=== PATIENT | female | born 1995 | race Caucasian/White ===

== ENCOUNTER 2016-11-21 11:41 | Inpatient (IN) | payer BC ==
[2016-11-21 13:57] LABS: BASO # 0.1 K/uL (0.0-0.2); EOS % 0.4 % (0.0-4.0); HEMATOCRIT 42.8 % (34.0-47.0); LYMPH # 1.3 K/uL (1.0-4.3); LYMPH % 12.8 % (20.0-40.0); MEAN CELL VOLUME 90.6 fL (81.0-99.0); MEAN CORPUSCULAR HEMOGLOBIN 31.1 pg (27.0-31.0); MEAN CORPUSCULAR HGB CONC 34.3 g/dL (33.0-37.0); MEAN PLATELET VOLUME 7.8 fL (7.2-11.7); MONO # 0.6 K/uL (0.0-0.8); MONO % 6.1 % (0.0-10.0); RED CELL DISTRIBUTION WIDTH 12.9 % (11.5-14.5); WHITE BLOOD COUNT 9.9 K/uL (4.8-10.8)
[2016-11-21 14:07] LABS: CHLORIDE 103 mmol/L (98-107); SODIUM 139 mmol/L (132-148)
[2016-11-21 14:09] LABS: GFR AFRICAN-AMERICAN > 60
[2016-11-21 14:10] LABS: ALB/GLOB RATIO 1.5 (1.0-2.1); ALKALINE PHOSPHATASE 83 U/L (38-126); ALT/SGPT 17 U/L (9-52); AST/SGOT 32 U/L (14-36); BLOOD UREA NITROGEN 9 mg/dL (7-17); CALCIUM 8.8 mg/dl (8.6-10.4); CARBON DIOXIDE 24 mmol/L (22-30); GLUCOSE,RANDOM 95 mg/dL (65-105); TOTAL PROTEIN 6.9 g/dL (6.3-8.3)
[2016-11-21 14:18] LABS: RBC URINE < 1 /hpf (0-3); URINE BACTERIA RARE (<OCC); URINE BILIRUBIN NEGATIVE (NEGATIVE); URINE BLOOD NEGATIVE (NEGATIVE); URINE COLOR Yellow (YELLOW); URINE GLUCOSE (UA) NORMAL (Normal); URINE KETONE NEGATIVE (NEGATIVE); URINE LEUKOCYTE ESTERASE 2+ Leu/uL (Negative); URINE PROTEIN NEGATIVE (NEGATIVE); URINE UROBILINOGEN NORMAL mg/dL (0.2-1.0); WBC URINE 5 /hpf (0-5)
[2016-11-21 14:30] LABS: POTASSIUM 2.9 mmol/L (3.6-5.2)
--- NOTE | 2016-11-21 14:40 | C.PDOC ---
History Of Present Illness 21 y/o female presents to the ED for evaluation "near syncope" x1 day. Pt reports multiple episodes today. 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 Today patient felt episode coming on, told people around her to get pillow ready and to lay her down not to call ambulance but did. Pt with episode in ED which resolved prior to any medication. Pt denies being unconscious for episode but is very drowsy. Denies any injury or other complaints. Time Seen by Provider: 11/21/16 12:46 Chief Complaint (Nursing): Seizure History Per: Patient History/Exam Limitations: no limitations Length Of Seizures (Duration): Unknown Severity: Moderate Recent travel outside of the [place]: No Past Medical History Reviewed: Historical Data, Nursing Documentation, Vital Signs Vital Signs: Last Vital Signs Temp 98.8 F 11/21/16 11:49 Pulse 124 H 11/21/16 14:26 Resp 20 11/21/16 14:26 BP 133/81 11/21/16 14:26 Pulse Ox 97 11/21/16 14:43 Family History: States: Unknown Family Hx - Social History Hx Alcohol Use: Yes Hx Substance Use: No (unknown) - Immunization History Hx Tetanus Toxoid Vaccination: No (unknown) Hx Influenza Vaccination: No (unknown) Hx Pneumococcal Vaccination: No (unknown) Review Of Systems Constitutional: Negative for: Fever, Chills Cardiovascular: Negative for: Chest Pain Respiratory: Negative for: Shortness of Breath Gastrointestinal: Negative for: Abdominal Pain Neurological: Positive for: Other (near syncope). Negative for: Headache Physical Exam - Physical Exam Additional Physical Exam Comments: Constitutional: No acute distress. Head: Normocephalic. Atraumatic. Eyes: PERRL. ENT: Moist mucous membranes. Neck: Supple. Cardiovascular: Tachycardic. Radial pulse 2+ bilaterally. Chest: No tenderness. Respiratory: Clear to auscultation bilaterally. GI: Soft. Nontender. Nondistended. Back: No CVA tenderness. Musculoskeletal: No tenderness or swelling of extremities. Skin: No rash. Neurologic: Alert, no focal deficit ED Course And Treatment - Laboratory Results Result Diagrams: 11/21/16 13:53 11/21/16 13:53 O2 Sat by Pulse Oximetry: 97 (room air) Pulse Ox Interpretation: Normal Medical Decision Making Medical Decision Making: Plan: * labs * CXR * UA Patient persistently tachycardic with 2 episodes of convulsions in ER, both resolving in less than 1 minute without medication and with no postictal period. CXR no acute disease. Sinus tachycardia. Found to be hypokalemic to 2.9. Dr. Walker accepts patient for consult. Dr. Dobbs accepts patient for observation and recommends neurology consultation with Dr. Walter. Disposition - Disposition Disposition: HOSPITALIZED Disposition Time: 14:37 Condition: FAIR - Clinical Impression Clinical Impression: Tachycardia, Hypokalemia, Near syncope - Scribe Statement The provider has reviewed the documentation as recorded by the Alex Rosa Provider Attestation: All medical record entries made by the Alex were at my direction and personally dictated by me. I have reviewed the chart and agree that the record accurately reflects my personal performance of the history, physical exam, medical decision making, and the department course for this patient. I have also personally directed, reviewed, and agree with the discharge instructions and disposition.
--- NOTE | 2016-11-21 15:02 | RAD ---
HISTORY: near syncope COMPARISON: 04/26/2016 FINDINGS: LUNGS: No active pulmonary disease. Bibasilar breast and nipple shadows. PLEURA: No significant pleural effusion identified, no pneumothorax apparent. CARDIOVASCULAR: Normal. OSSEOUS STRUCTURES: No significant abnormalities. VISUALIZED UPPER ABDOMEN: Normal. OTHER FINDINGS: None. IMPRESSION: No active disease.
[2016-11-21] MEDS ORDERED: Sodium Chloride 0.9% 1,000 ML IV STA (15:10)
[2016-11-21] MEDS ORDERED: Sodium Chloride 0.9% 1,000 ML ONE (15:17)
--- NOTE | 2016-11-21 22:09 | CP.PCM.PN ---
Subjective - Date & Time of Evaluation Date of Evaluation: 11/21/16 Time of Evaluation: 20:45 - Subjective Subjective: H&P dictated #[id number] Objective - Vital Signs/Intake and Output Vital Signs (last 24 hours): Temp Pulse Resp BP Pulse Ox 98.0 F 120 H 18 111/72 98 11/21/16 18:40 11/21/16 19:42 11/21/16 18:40 11/21/16 18:40 11/21/16 18:40 - Medications Medications: Current Medications Dextrose/Sodium Chloride (Dextrose 5%/0.9% Ns 1000 Ml) 1,000 mls @ 100 mls/hr IV .Q10H ALEJANDRO Pneumococcal Polyvalent Vaccine (Pneumovax 23 Vaccine) 0.5 ml IM .ONCE ONE Stop: 11/23/16 10:01
--- NOTE | 2016-11-22 05:32 | CP.PCM.CON ---
History of Present Illness - History of Present Illness History of Present Illness: pt known to me pots syncopal episode hydrate watch potasium Past Patient History - Infectious Disease Hx of Infectious Diseases: C.diff - Tetanus Immunizations Tetanus Immunization: Unknown - Past Medical History & Family History Past Medical History?: Yes - Past Social History Smoking Status: Never Smoked - CARDIAC Hx Cardiac Disorders: No - PULMONARY Hx Respiratory Disorders: No - NEUROLOGICAL Hx Neurological Disorder: Yes Other/Comment: pseudo seizures - HEENT Hx HEENT Problems: No - RENAL Hx Chronic Kidney Disease: No - ENDOCRINE/METABOLIC Hx Endocrine Disorders: No - HEMATOLOGICAL/ONCOLOGICAL Hx Blood Disorders: No - INTEGUMENTARY Hx Dermatological Problems: No - MUSCULOSKELETAL/RHEUMATOLOGICAL Hx Musculoskeletal Disorders: No Hx Falls: No - GASTROINTESTINAL Hx Gastrointestinal Disorders: No - GENITOURINARY/GYNECOLOGICAL Hx Genitourinary Disorders: No - PSYCHIATRIC Hx Substance Use: No - SURGICAL HISTORY Hx Surgeries: No - ANESTHESIA Hx Anesthesia: No Meds Allergies/Adverse Reactions: Allergies Allergy/AdvReac Type Severity Reaction Status Date / Time bananas Allergy Uncoded 11/21/16 11:55 - Medications Medications: Current Medications Dextrose/Sodium Chloride (Dextrose 5%/0.9% Ns 1000 Ml) 1,000 mls @ 100 mls/hr IV .Q10H ALEJANDRO Pneumococcal Polyvalent Vaccine (Pneumovax 23 Vaccine) 0.5 ml IM .ONCE ONE Stop: 11/23/16 10:01 Results - Vital Signs Recent Vital Signs: Last Vital Signs Temp 98.3 F 11/21/16 23:15 Pulse 97 H 11/21/16 23:15 Resp 20 11/21/16 23:15 BP 108/69 11/21/16 23:15 Pulse Ox 98 11/21/16 23:15 - Labs Result Diagrams: 11/21/16 13:53 11/21/16 13:53 Labs: Laboratory Results - last 24 hr 11/21/16 11/22/16 20:16 03:53 Troponin I < 0.0120 Urine Opiates Screen Negative Urine Methadone Screen Negative Ur Barbiturates Screen Negative Ur Phencyclidine Scrn Negative Ur Amphetamines Screen Negative U Benzodiazepines Scrn Negative U Oth Cocaine Metabols Negative U Cannabinoids Screen Negative
[2016-11-22 08:11] LABS: BASO % 0.3 % (0.0-2.0); EOS # 0.1 K/uL (0.0-0.7); EOS % 1.6 % (0.0-4.0); LYMPH # 1.4 K/uL (1.0-4.3); LYMPH % 21.1 % (20.0-40.0); MEAN CELL VOLUME 90.7 fL (81.0-99.0); MEAN CORPUSCULAR HGB CONC 34.2 g/dL (33.0-37.0); MEAN PLATELET VOLUME 7.6 fL (7.2-11.7); MONO # 0.5 K/uL (0.0-0.8); MONO % 7.2 % (0.0-10.0); NRBC % 0.1 % (0.0-2.0); RED CELL DISTRIBUTION WIDTH 12.7 % (11.5-14.5); WHITE BLOOD COUNT 6.8 K/uL (4.8-10.8)
[2016-11-22 08:13] LABS: CHLORIDE 104 mmol/L (98-107); POTASSIUM 3.6 mmol/L (3.6-5.2); SODIUM 138 mmol/L (132-148)
[2016-11-22 08:15] LABS: ALB/GLOB RATIO 1.6 (1.0-2.1); ALKALINE PHOSPHATASE 82 U/L (38-126); AST/SGOT 27 U/L (14-36); BILIRUBIN,TOTAL 1.7 mg/dL (0.2-1.3); BLOOD UREA NITROGEN 10 mg/dL (7-17); CARBON DIOXIDE 23 mmol/L (22-30); CHOLESTEROL 153 mg/dL (0-199); GFR AFRICAN-AMERICAN > 60; GLUCOSE,RANDOM 93 mg/dL (65-105); TOTAL PROTEIN 7.3 g/dL (6.3-8.3)
[2016-11-22 08:16] LABS: ALT/SGPT 17 U/L (9-52); CALCIUM 9.7 mg/dl (8.6-10.4); MAGNESIUM 2.1 mg/dL (1.6-2.3)
[2016-11-22 08:47] LABS: CORTISOL AM 27.5 ug/dL (4.46-22.7)
[2016-11-22 08:48] LABS: THYROID STIMULATING HORMONE 1.29 mIU/L (0.46-4.68)
--- NOTE | 2016-11-22 08:52 | CP.PCM.PN ---
Subjective - Date & Time of Evaluation Date of Evaluation: 11/22/16 Time of Evaluation: 08:48 - Subjective Subjective: House Doctor Note: Rapid response called at 8:40 am for seizure like activity. Patient with history of postural orthostatic tachycardic syndrome as per Dr. Walker. Seizure like activity was witnessed by nursing and lasted for about 1 minute without intervention. No medications were given. She had seizures in April and work up was negative at the time. Vital signs 137/85, Temp 97.3, HR 117, O2 98% on RS. Glucose check was 93. During rapid response patient had 2 additional seizures witnessed by me and nursing. The first seizure lasted about 15-20 seconds. Patient was witnessed to posture with eyes rolling back. She was noted to be diaphoretic and warm. Very short post ictal state. Prolactin level at 4 am was [address] Neu[address] Walter is following patient who was made aware and ordered loading dose of Keppra with 500 mg PO BID after that. Patient ordered for stat Prolactin for comparison. Patient for MRI and EEG today as per neuro. Dr. Burkett contacted and aware. Physical Exam: GEN: NAD after seizure, AAO X3 Pulm: CTABL. Cardio: Tachy, +S1, +S2. Abdomen: soft. Extremities: no edema or rashes. Objective - Vital Signs/Intake and Output Vital Signs (last 24 hours): Temp Pulse Resp BP Pulse Ox 98.3 F 101 H 20 108/69 98 11/21/16 23:15 11/21/16 23:15 11/21/16 23:15 11/21/16 23:15 11/21/16 23:15 - Medications Medications: Current Medications Dextrose/Sodium Chloride (Dextrose 5%/0.9% Ns 1000 Ml) 1,000 mls @ 100 mls/hr IV .Q10H ALEJANDRO Pneumococcal Polyvalent Vaccine (Pneumovax 23 Vaccine) 0.5 ml IM .ONCE ONE Stop: 11/23/16 10:01 - Labs Labs: 11/22/16 07:53 11/22/16 07:53
--- NOTE | 2016-11-22 09:32 | HP ---
CHIEF COMPLAINT: Had multiple episodes of syncope, near syncope and associated with jerky movements of the upper extremities as witnessed by the ED physician. HISTORY OF PRESENT ILLNESS: The patient is a 21-year-old female with a past medical history of POTS (postural tachycardia syndrome) diagnosed about 7-8 months ago who has been following up with Dr. Terence barrientos as litigation counsel and her primary is from [place]/Dr. Kaplan. Came in to the ED, brought by [facility] after the patient had multiple episodes of passing out with jerky movements of the upper extremiti es. All the history obtained from the patient and patient's friends who were at bedside. As per the m, she was in her usual state of health until yesterday. She was under stress, could not sleep last night, tired. She slept for only 2 hours. While she was in school this morning sitting, she felt li ke tired, sleepy. She was trying to rest her head on the desk. She passed out and also had jerky mo vements of the upper extremities. Had multiple episodes in the school, and patient was brought into the Emergency Room. In the Emergency Room also, as per ED physician, patient had 2 witnessed syncopa l episodes associated with jerky movements. The patient claims that her symptoms start with palpitat ion, lightheadedness and suddenly will pass out followed by the jerky movements of the upper extremit ies. Since this morning, had multiple episodes. There was no postictal period. All these episodes lasted for 30 seconds to a minute followed by complete recovery. As per her, some of the episodes mienr ppened today she was aware of what was happening. Similar episodes happened in April, but those e pisodes happened followed by diarrhea and she was standing for a prolonged period of time in one posi tion at which point she started having these palpitations followed by syncope and jerky movements. A t that time, the patient was diagnosed with possible postural tachycardia syndrome and patient was gi guanako a medication, which she could not recall, for a month. She did not have any episodes from 6 till today. The patient is not taking any medications for any of her symptoms, but patient has bee n regularly following up with the litigation counsel. When I examined, she denies any headache, dizziness. Denies any chest pain, shortness of breath or w heezing. Denies any nausea, vomiting, abdominal pain, diarrhea or constipation. Denies any urinary complaints. Denies any leg pains or leg cramps. Denies any other neurologic symptoms. PAST MEDICAL HISTORY: As described, postural tachycardia syndrome. PAST SURGICAL HISTORY: Denies any past surgical history. FAMILY HISTORY: Rheumatoid arthritis in father. Hypertension and diabetes in grandparents. Mother is healthy. She has 1 brother and 1 sister who are healthy. PERSONAL HISTORY: She is single, living with her aunt and uncle. SOCIAL HISTORY: She denies smoking. Drinks alcohol socially; last drink was yesterday - had 1 can o f beer. ALLERGIES: SHE IS ALLERGIC TO BANANA, DEVELOPS ITCHY THROAT. MEDICATIONS: Takes Claritin for seasonal allergies. REVIEW OF SYSTEMS: As described in history of present illness. PHYSICAL EXAMINATION: GENERAL: Young female lying in bed, in no acute distress. VITAL SIGNS: Blood pressure 111/72, pulse 85, respirations 20, temperature 98 degrees Fahrenheit, pu lse 106, O2 sat is 98% on room air. HEENT: Pupils equal, round, reacting to light and accommodation. Extraocular muscles intact. No ic terus, no pallor. No oral thrush. No pharyngeal congestion. NECK: Supple. No JVD, no thyromegaly. CHEST: Moving equally bilaterally on respiration. LUNGS: Bilateral vesicular breath sounds. No wheezing, no rhonchi. CARDIOVASCULAR: S1, S2 present, regular. ABDOMEN: Soft, nontender. Bowel sounds present. No guarding, no rigidity, no rebound tenderness no michael. CENTRAL NERVOUS SYSTEM: Alert, awake, oriented x 3. No focal deficits noted. EXTREMITIES: No edema. Palpable peripheral pulses. LABORATORY DATA: Labs done from the Emergency Room: WBC 9.9, hemoglobin 14.7, hematocrit 42.8, vincent telets 396, sodium 139, potassium 2.9, chloride 103, bicarb 24, BUN 9, creatinine 0.7, glucose 95, ca lcium 8.8. Total bilirubin 1.0, AST 32, ALT 17, alkaline phosphatase 83. Total CPK is 58. Cardiac enzymes x 2 negative. Total protein 6.9, albumin 4.1. UA: Specific gravity 1.010, pH 7.0, leukocyt e esterase 2+, WBC 5, otherwise negative. Chest x-ray negative for any infiltrate. EKG is consisten t with sinus tachycardia at 128 beats per minute. MRI of the brain done in April shows no evidenc e of acute pathology or suspicious lesion in the brain. EEG: No epileptiform focus. Echocardiogram shows ejection fraction of 65-70%. No other abnormality noted. CT of the chest: Unremarkable. CT pulmonary angiogram: No pulmonary embolus. CT head: No acute intracranial hemorrhage. ASSESSMENT AND PLAN: Young female with recently diagnosed postural tachycardia syndrome. As per her , not on any medication. Believed to be triggered by dehydration and diarrhea and in April admitt ed with multiple episodes of palpitations followed by the syncope with jerky movements of the upper e xtremities. In the Emergency Department, the patient had further witnessed episodes. All the labora tor data are negative, and patient is being admitted for further management. 1. Multiple syncopal episodes, initiated by palpitation followed by syncope and jerky movements of t he upper extremities, probably secondary to stress and using ____. Rule out other cardiac etiologies . Rule out neurologic causes. 2. Hypokalemia. PLAN: The patient is being admitted to telemetry. Will do serial cardiac enzymes, serial EKGs. Alexi l repeat echocardiogram. Will obtain cardiology evaluation and neurologic evaluation. The patient h ad extensive workup done during the last admission; all the workup was negative. Will replace potass ium, check magnesium level. I will give IV fluids. I will follow up with cardiology regarding furth er and further care. I will do seizure precautions, fall prevention. Will add further recommendatio n as her clinical course progresses. Jewel Dobbs MD cc: [id number] TT: 11/22/2016 09:32:00 dawit
[2016-11-22] MEDS: Dextrose 5%/0.9% NS 1,000 ML IV SCH ×3 (09:57→23:01)
[2016-11-22] MEDS ORDERED: levETIRAcetam 1,000 MG in Sodium Chloride 0.9% 100 ML IVPB ONE (10:00)
--- NOTE | 2016-11-22 11:20 | CP.PCM.PN ---
Subjective - Date & Time of Evaluation Date of Evaluation: 11/22/16 Time of Evaluation: 10:30 - Subjective Subjective: Progress note dictated #[id number] Objective - Vital Signs/Intake and Output Vital Signs (last 24 hours): Temp Pulse Resp BP Pulse Ox 98.4 F 117 H 20 111/71 95 11/22/16 07:00 11/22/16 07:00 11/22/16 07:00 11/22/16 07:00 11/22/16 07:00 - Medications Medications: Current Medications Dextrose/Sodium Chloride (Dextrose 5%/0.9% Ns 1000 Ml) 1,000 mls @ 100 mls/hr IV .Q10H ALEJANDRO Last Admin: 11/22/16 09:57 Dose: 100 mls/hr Levetiracetam (Keppra) 500 mg PO BID ALEJANDRO Pneumococcal Polyvalent Vaccine (Pneumovax 23 Vaccine) 0.5 ml IM .ONCE ONE Stop: 11/23/16 10:01 - Labs Labs: 11/22/16 07:53 11/22/16 07:53
--- NOTE | 2016-11-22 11:30 | CP.PCM.PN ---
Subjective - Date & Time of Evaluation Date of Evaluation: 11/22/16 Time of Evaluation: 11:24 - Subjective Subjective: Progress Note for Dr. Walker Pt seen and examined at bedside. Overnight, pt with no acute events. This morning rapid response was called for pt due to seizure activity. Pt had seizure for 30 seconds and it spontaneously resolved. All vitals were stable at this time. Several minutes later, pt had another seizure lasting 2 minutes that resolved spontaneously. Pt eventually stabilized several minutes later. EKG showed sinus tachycardia. Objective - Vital Signs/Intake and Output Vital Signs (last 24 hours): Temp Pulse Resp BP Pulse Ox 98.4 F 117 H 20 111/71 95 11/22/16 07:00 11/22/16 07:00 11/22/16 07:00 11/22/16 07:00 11/22/16 07:00 - Medications Medications: Current Medications Dextrose/Sodium Chloride (Dextrose 5%/0.9% Ns 1000 Ml) 1,000 mls @ 100 mls/hr IV .Q10H ALEJANDRO Last Admin: 11/22/16 09:57 Dose: 100 mls/hr Levetiracetam (Keppra) 500 mg PO BID [facility] Pneumococcal Polyvalent Vaccine (Pneumovax 23 Vaccine) 0.5 ml IM .ONCE ONE Stop: 11/23/16 10:01 - Labs Labs: 11/22/16 07:53 11/22/16 07:53 - Constitutional Appears: Well, No Acute Distress - Head Exam Head Exam: ATRAUMATIC, NORMAL INSPECTION, NORMOCEPHALIC - ENT Exam ENT Exam: Mucous Membranes Moist - Respiratory Exam Respiratory Exam: Clear to Ausculation Bilateral, NORMAL BREATHING PATTERN. absent: Rales, Rhonchi - Cardiovascular Exam Cardiovascular Exam: Tachycardia, +S1, +S2 - GI/Abdominal Exam GI & Abdominal Exam: Soft, Normal Bowel Sounds. absent: Tenderness - Extremities Exam Extremities Exam: Normal Inspection. absent: Pedal Edema - Neurological Exam Neurological Exam: Alert, Awake, Oriented x3 - Skin Skin Exam: Intact, Normal Color, Warm Assessment and Plan (1) POTS (postural orthostatic tachycardia syndrome) Assessment & Plan: Pt will continue electrolyte supplementation as needed Monitor heart rate Status: Acute (2) Seizure Assessment & Plan: Continue management as per neuro Brain MRI and EEG pending Status: Acute
--- NOTE | 2016-11-22 13:58 | CON ---
DATE: 11/22/2016 ATTENDING PHYSICIAN: Jewel Dobbs MD The patient is in room #663, bed A. REASON FOR CONSULTATION: Recurrent syncopal attack. CHIEF COMPLAINT: The patient was brought into [facility] with a second episode of palpitation w ith a syncopal episode. From neurological point of view, I was called in to evaluate her for further management. HISTORY OF PRESENT ILLNESS: The patient is a 21-year-old right-handed thinly built female, been presenting with POTS syndrome, been diagnosed in April last year, been worked up extensively and she was sent home with no medication. She had a second episode that happened yesterday which wa s witnessed by her friend. As per patient, she described that out of the blue, she started to have r apid pulsating heartbeat, then she felt weird sensation. One episode happened while she was standing , another episode while was sitting. Following this, friend noticed that her eyes rolled backwards a nd tonic posturing of both arm and legs, which lasted for about a minute and then it took another min richar for her to regain back to the way she was before. No history of travel. No history of head trau ma. No history of any other involuntary movements. The patient's history is also normal as pe r patient and ____ also normal as she was told by her mother. Another episode had happened briefly this morning around 6:00 which disappeared the nurse came in to see her. PAST MEDICAL HISTORY: As stated above. PERSONAL HISTORY: Denies smoking or alcohol use. ALLERGIES: BANANA. SOCIAL HISTORY: ____ alcohol use. MEDICATION: IV fluids. PHYSICAL EXAMINATION: VITAL SIGNS: Blood pressure 108/69, mean arterial pressure of 82, respiratory rate 16, temperature 9 8.3. Pulse rate 124 on lying down, on sitting up. When she stands up, pulse rate went up 10 points higher, 133. The patient was asymptomatic at this point. NECK: Supple. No carotid bruit. HEART: Sounds tachycardia. EXTREMITIES: No edema in legs. NEUROLOGIC EXAMINATION: MENTAL STATUS EXAMINATION: She is awake, alert, oriented to person, place, and time. Speech is claudia r. Naming, repetition, fluency, comprehension all within normal. CRANIAL NERVE EXAMINATION: Visual field intact. Pupils react to light. Extraocular movement normal . No nystagmus, no facial sensory deficit, no facial asymmetry. Hearing is normal. Tongue is midli ne. Good gag. MOTOR EXAMINATION: Outstretched hand with eyes closed, no drift noted. Power is symmetric on either side. DEEP TENDON REFLEXES: Right side is somewhat hyperreflexia 3+ to compare with the left side 2+. Drake ntars are equivocal response on the right side, left side was downgoing. SENSORY EXAMINATION: Grossly intact. COORDINATION: [id number] test is intact. GAIT: Normal. CONCLUSION: Upon reviewing her history and neurological examination, the patient has been presenting with history of paroxysmal tachycardia with postural orthostatic tachycardia syndrome. The neurolog ical examination shows resting tachycardia with right-sided hyperreflexia suggestive of dominant arsen spheric dysfunction. This could be a remote ischemic process, a developmental anomaly or space-occupying lesion. WORKUP: EKG, sinus tachycardia. CBC: ____ 9.9, hemoglobin 14.7, hematocrit 42.8, platelet 396. Sod ium 139, potassium 2.9 before correcting the potassium. BUN 9, creatinine 0.7, GFR more than 60, olu cium 8.8. Urine tox screen is negative. RECOMMENDATION: 1. MRI of the brain with and without gadolinium to rule out dominant hemispheric space-occupying pro cess versus focal atrophy at mesial temporal lobe around the insular cortex. 2. Thyroid function tests. 3. Continue to monitor telemetry. 4. Electroencephalogram to be done. Continue the present management and follow up with supervisor lump room's recommendation. Following discharge, definitely patient does need ambulatory video electroencephalogram to study the extent of electrographic activities during her awake as well as asleep. The patient will be followed while she is in the hospital. Jose Walter MD cc: [id number] TT: 11/22/2016 13:57:23 Confirmation # [id number] Dictation # [id number]
[2016-11-22] MEDS ORDERED: Gadodiamide 287 MG/ML VIAL (15ML) IV ONE (15:21)
--- NOTE | 2016-11-22 16:30 | PN ---
DATE: 11/22/2016 The patient is seen and examined at bedside. Events from this a.m. noted. The patient had multiple seizure-like activity at bedside, which was witnessed by the nurses and the resident. The patient wa s given Ativan. When I examined, she denies any headache, dizziness. Denies any tiredness or fatigu e or postictal state. Denies any chest pain, shortness of breath or wheezing. Denies any other comp laints. PHYSICAL EXAMINATION: GENERAL: Young female lying in bed in no acute distress. VITAL SIGNS: Blood pressure 137/85, pulse 117, respirations 20, temperature 97.3 degrees Fahrenheit, O2 sats 98% on room air. HEENT: Pupils equal, round, reacting to light and accommodation. Extraocular muscles intact. No ic terus, no pallor. No oral thrush. No pharyngeal congestion. No nasal congestion. NECK: Supple. No JVD. LUNGS: Bilateral vesicular breath sounds. No wheezing, no rhonchi. CARDIOVASCULAR: S1, S2 present, regular. ABDOMEN: Soft, nontender. Bowel sounds present. No guarding, no rigidity, no rebound tenderness no michael. CENTRAL NERVOUS SYSTEM: Alert, awake, oriented x 3. No focal deficits noted. EXTREMITIES: No edema. Palpable peripheral pulses. LABORATORY DATA: Labs done from this morning, WBC 6.8, hemoglobin 14.7, hematocrit 43, platelets 376 . Sodium 138, potassium 3.6, chloride 104, bicarb 23, BUN 10, creatinine 0.6, glucose 92, calcium 9. 7, magnesium 2.1, total bilirubin 1.7, AST 27, ALT 17, alkaline phosphatase 82. Cardiac enzymes x 2 negative. HDL 81. TSH 1.29. Prolactin is 50.5, cortisol AM 27.5, triglycerides 111, cholesterol 15 3. UA negative. Urine drug screen negative. MRI pending results. ASSESSMENT AND PLAN: A young female with recently diagnosed postural orthostatic tachycardia syndrom e, readmitted for multiple episodes of seizure-like activity and hypokalemia. The patient is started on Keppra after having multiple episodes this morning. We will monitor patient closely for seizure precaution and fall prevention. We will follow up with brain MRI results. Potassium was corrected w ith intravenous supplementation. We will follow up with cardiology. We will add further recommendat ion as her clinical course progresses. Jewel Dobbs MD cc: [id number] TT: 11/22/2016 16:29:38 Confirmation # [id number] Dictation # [id number] sn
--- NOTE | 2016-11-22 17:16 | MRI ---
PROCEDURE: MRI BRAIN WITH AND WITHOUT CONTRAST HISTORY: focal atrophy at mesial temp lobe COMPARISON: Comparison is made to the previous study dated 04/27/2016 TECHNIQUE: Multiplanar, multisequence MR images of the brain were obtained with and without intravenous contrast enhancement. FINDINGS: HEMORRHAGE: None DWI: No evidence of an acute or early subacute infarction. BRAIN PARENCHYMA: There is slight asymmetry in the mesial temporal lobe with the right appears larger than the left. No mass,mass effect or edema. No atrophy or chronic microvascular ischemic changes. ENHANCEMENT: No abnormal intracranial enhancement. VENTRICLES: Unremarkable. No hydrocephalus. CRANIUM: Unremarkable. ORBITS: Grossly unremarkable. PARANASAL SINUSES/MASTOIDS: Clear VASCULAR SYSTEM: Skull base flow voids intact. OTHER FINDINGS: None . IMPRESSION: Slight asymmetry in the size of the mesial temporal lobe with possible mild atrophy in the left side. No evidence of acute pathology in the brain. No evidence of mass lesion or abnormal enhancement in the brain parenchyma. Mildly enlarged pituitary gland is again noted.
[2016-11-23] MEDS: Dextrose 5%/0.9% NS 1,000 ML IV SCH (02:52)
--- NOTE | 2016-11-23 08:24 | PN ---
DATE: 11/23/2016 NEUROLOGICAL PROBLEM: Possible seizures. PHYSICAL EXAMINATION: VITAL SIGNS: Blood pressure 110/73, mean arterial pressure 80, respiratory rate 16, temperature afeb rile. Her pulse rate and heart rate being regular ever since medication was started yesterday and tena florez has been seizure free. The patient did have 3-4 episodes of loss of consciousness with eyes rolling and tonic posturing of t he arms and legs, which was not associated with bitten tongue and bowel or bladder incontinence. The examination was mildly asymmetry as per previous exam today as well. The patient feels tired. Besides that, her heart rate was not racing like she had it before. 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 No other pathologies noted. This above structural finding could be the cause for her seizures. RECOMMENDATIONS: The patient is stable with current dose of Keppra 500 mg twice a day. If medically stable, the patient can be discharged to home and should have a followup visit with me to have ambul atory video electroencephalogram to further localize any electrographic seizures. The current electr oencephalogram will be reviewed by me today. The patient's condition as well as DMV driving restrictions in [place] have been discussed with gabi obando. The patient should not be driving until her seizure has been fixed. She agreed and she should fo llow up with me and concur with my recommendation and follow up with DMV recommendation in [place] . . Jose Walter MD cc: [id number] TT: 11/23/2016 08:24:00 Confirmation # [id number] Dictation # [id number] tn
--- NOTE | 2016-11-23 09:33 | CP.PCM.PN ---
Subjective - Date & Time of Evaluation Date of Evaluation: 11/23/16 Time of Evaluation: 09:30 - Subjective Subjective: Progress Note for Dr. Walker Pt seen and examined at bedside. Pt states she feels well today after CABLE INSTALLATION TECHNICIAN called yesterday. No acute overnight events. Pt states she has had no episodes of seizure like activity. Denies CP, SOB, N/V/D, dizziness, fever, chills. Objective - Vital Signs/Intake and Output Vital Signs (last 24 hours): Temp Pulse Resp BP Pulse Ox 97.6 F 93 H 20 99/67 L 97 11/23/16 07:27 11/23/16 07:27 11/23/16 07:27 11/23/16 07:27 11/23/16 07:27 Intake and Output: 11/23/16 11/23/16 06:59 18:59 Intake Total 800 Output Total 400 Balance 400 - Medications Medications: Current Medications Levetiracetam (Keppra) 500 mg PO BID ALEJANDRO Last Admin: 11/22/16 17:11 Dose: 500 mg Pneumococcal Polyvalent Vaccine (Pneumovax 23 Vaccine) 0.5 ml IM .ONCE ONE Stop: 11/23/16 10:01 - Labs Labs: 11/22/16 07:53 11/22/16 07:53 - Constitutional Appears: Well, No Acute Distress - Head Exam Head Exam: ATRAUMATIC, NORMAL INSPECTION, NORMOCEPHALIC - ENT Exam ENT Exam: Mucous Membranes Moist - Respiratory Exam Respiratory Exam: Clear to Ausculation Bilateral, NORMAL BREATHING PATTERN. absent: Rales - Cardiovascular Exam Cardiovascular Exam: RRR, +S1, +S2 - GI/Abdominal Exam GI & Abdominal Exam: Soft, Normal Bowel Sounds. absent: Tenderness - Extremities Exam Extremities Exam: Normal Inspection. absent: Pedal Edema - Neurological Exam Neurological Exam: Alert, Awake, Oriented x3 - Skin Skin Exam: Intact, Normal Color, Warm Assessment and Plan (1) POTS (postural orthostatic tachycardia syndrome) Assessment & Plan: Continue oral fluid intake Replenish electrolytes as needed Status: Acute (2) Seizure Assessment & Plan: Pt started on Keppra Continue management as per neurology Status: Acute
[2016-11-23] MEDS ORDERED: Pneumococcal 23-Valent Vaccine IM ONE (10:00)
--- NOTE | 2016-11-23 12:06 | CP.PCM.PN ---
Subjective - Date & Time of Evaluation Date of Evaluation: 11/23/16 Time of Evaluation: 11:45 - Subjective Subjective: Progress note dictated #[id number] Objective - Vital Signs/Intake and Output Vital Signs (last 24 hours): Temp Pulse Resp BP Pulse Ox 97.6 F 93 H 20 99/67 L 97 11/23/16 07:27 11/23/16 07:27 11/23/16 07:27 11/23/16 07:27 11/23/16 07:27 Intake and Output: 11/23/16 11/23/16 06:59 18:59 Intake Total 800 Output Total 400 Balance 400 - Medications Medications: Current Medications Levetiracetam (Keppra) 500 mg PO BID ALEJANDRO Last Admin: 11/23/16 09:34 Dose: 500 mg - Labs Labs: 11/22/16 07:53 11/22/16 07:53
--- NOTE | 2016-11-23 13:29 | CP.PCM.PN ---
Subjective - Date & Time of Evaluation Date of Evaluation: 11/23/16 Time of Evaluation: 13:24 - Subjective Subjective: BREAKER TENDER called at 13:20 for witnessed seizure by nursing staff lasting approximately 1 minute. As per nursing staff, when seizure began, the patient's pulse was in the 140s. Upon entering the room, seizure had resolved and patient noted that she felt the seizure coming on, but was unaware during the episode. Yesterday, loading dose of Keppra was initiated. Patient is being seen by both cardio and neuro. After episode, the blood pressure was 119/71, P 104, T 98,O2 sat 99%, R 14, glucose 127. Ativan was not required, patient is resting comfortably. Nursing staff contacted PMD Dr. Dobbs, who is aware. Objective - Vital Signs/Intake and Output Vital Signs (last 24 hours): Temp Pulse Resp BP Pulse Ox 97.6 F 93 H 20 99/67 L 97 11/23/16 07:27 11/23/16 07:27 11/23/16 07:27 11/23/16 07:27 11/23/16 07:27 Intake and Output: 11/23/16 11/23/16 06:59 18:59 Intake Total 800 Output Total 400 Balance 400 - Medications Medications: Current Medications Levetiracetam (Keppra) 500 mg PO BID ALEJANDRO Last Admin: 11/23/16 09:34 Dose: 500 mg - Labs Labs: 11/22/16 07:53 11/22/16 07:53 - Constitutional Appears: No Acute Distress - Head Exam Head Exam: ATRAUMATIC, NORMAL INSPECTION - Eye Exam Eye Exam: EOMI, Normal appearance - ENT Exam ENT Exam: Mucous Membranes Moist - Neck Exam Neck Exam: Normal Inspection - Respiratory Exam Respiratory Exam: Clear to Ausculation Bilateral, NORMAL BREATHING PATTERN - Cardiovascular Exam Cardiovascular Exam: Tachycardia, REGULAR RHYTHM, +S1, +S2 - GI/Abdominal Exam GI & Abdominal Exam: Soft, Normal Bowel Sounds. absent: Distended, Tenderness - Extremities Exam Extremities Exam: Normal Inspection. absent: Calf Tenderness, Pedal Edema, Tenderness - Neurological Exam Neurological Exam: Alert, Awake, Oriented x3 Neuro motor strength exam: Left Upper Extremity: 4, Right Upper Extremity: 4, Left Lower Extremity: 4, Right Lower Extremity: 4 - Psychiatric Exam Psychiatric exam: Flat Affect, Normal Mood - Skin Skin Exam: Dry, Intact, Normal Color, Warm
--- NOTE | 2016-11-23 16:35 | PN ---
DATE: 11/23/2016 The patient was seen and examined at bedside. The patient is seizure free in the past 24 hours. The patient was cleared by neurology and cardiology. The patient was scheduled to be discharged. While the patient was waiting to be discharged, the patient was noticed to be having another seizure episod e which the held the patient's discharge plan and the patient is being admitted for further monitorin g of her seizures. The patient denies any other complaints. PHYSICAL EXAMINATION: GENERAL: Young female lying in bed in no acute distress. VITAL SIGNS: Blood pressure 110/73, pulse 84, respirations 20, temperature 98.1 degrees Fahrenheit, O2 sat is % on room air. HEENT: Pupils equal, round, reacting to light and accommodation. Extraocular muscles intact. No ic terus, no pallor. No oral thrush. No pharyngeal congestion. NECK: Supple. No JVD, no thyromegaly. CHEST: Moving equally bilaterally on respiration. LUNGS: Bilateral vesicular breath sounds. No wheezing, no rhonchi. CARDIOVASCULAR: S1, S2 present, regular. ABDOMEN: Soft, nontender. Bowel sounds present. No guarding, no rigidity, no rebound tenderness no michael. CENTRAL NERVOUS SYSTEM: Alert, awake, oriented x 3. No focal deficits noted. EXTREMITIES: No edema. Palpable peripheral pulses. DIAGNOSTICS: No new labs from today other than which showed 41. MRI of the brain shows slight asymmetry in the size of the mesial temporal lobe with possible mild atrophy on the left side. No evidence of acu te pathology in the brain. No evidence of mass lesion or abnormal enhancement in the brain parenchym a. Mildly enlarged pituitary gland is again noted. EEG results are pending. ASSESSMENT AND PLAN: A young female with recently diagnosed POTS (postural orthostatic tachycardia s yndrome) by cardiology, admitted for sinus tachycardia and recurrent seizure-like activity. The salbador ent is being started on Keppra with breakthrough seizures on Keppra. We will continue to monitor the patient. We will continue with Keppra, continue with other current medication. We will repeat labs in the morning. Follow up with EEG results. We will add further recommendation as her clinical cou rse progresses. Jewel Dobbs MD cc: [id number] TT: 11/23/2016 16:34:57 Confirmation # [id number] Dictation # [id number] dn
--- NOTE | 2016-11-23 22:44 | EEG ---
DATE: 11/22/2016 This is a 16-channel electroencephalogram of awake adult. During the study, photic stimulation was p erformed. Hyperventilation was not performed. The resting electroencephalogram consists of low amplitude 20-30 microvolt 5-6 Hz theta activities miller perimposed with 3-4 Hz delta activity seen in the beginning. Later this background activity somewhat picked up to 9-30 Hz alpha activity seen at parietal and occipital leads. Some movement artifact an d muscle artifact contaminated the background rhythm intermittently. The EKG shows sinus tachycardia from the beginning. The photic stimulation did not evoke driving response noted at 2-20 Hz. IMPRESSION: This is a normal electroencephalogram of awake and drowsy adult. During the study, neit her electroencephalographic paroxysmal activities nor focal slowing noted. If clinical suspicion is high, the patient should have extended ambulatory electroencephalogram with sleep-deprived EEG to be done to further localize paroxysmal activities. The current study does not show any epileptifo rm activities during the study. Jose Walter MD cc: [id number] TT: 11/23/2016 22:44:28 Confirmation # [id number] Dictation # [id number]
[2016-11-24 06:23] LABS: BASO % 0.5 % (0.0-2.0); EOS # 0.2 K/uL (0.0-0.7); EOS % 1.9 % (0.0-4.0); HEMATOCRIT 42.6 % (34.0-47.0); LYMPH # 2.1 K/uL (1.0-4.3); LYMPH % 20.6 % (20.0-40.0); MEAN CELL VOLUME 90.8 fL (81.0-99.0); MEAN CORPUSCULAR HEMOGLOBIN 31.1 pg (27.0-31.0); MEAN CORPUSCULAR HGB CONC 34.2 g/dL (33.0-37.0); MEAN PLATELET VOLUME 7.4 fL (7.2-11.7); MONO # 0.8 K/uL (0.0-0.8); MONO % 7.9 % (0.0-10.0); RED CELL DISTRIBUTION WIDTH 12.5 % (11.5-14.5)
[2016-11-24 06:43] LABS: CHLORIDE 100 mmol/L (98-107)
[2016-11-24 06:44] LABS: POTASSIUM 3.6 mmol/L (3.6-5.2); SODIUM 137 mmol/L (132-148)
[2016-11-24 06:47] LABS: ALB/GLOB RATIO 1.5 (1.0-2.1); ALKALINE PHOSPHATASE 67 U/L (38-126); ALT/SGPT 11 U/L (9-52); AST/SGOT 21 U/L (14-36); BLOOD UREA NITROGEN 12 mg/dL (7-17); CALCIUM 9.5 mg/dl (8.6-10.4); CARBON DIOXIDE 26 mmol/L (22-30); GFR AFRICAN-AMERICAN > 60; GLUCOSE,RANDOM 85 mg/dL (65-105); TOTAL PROTEIN 6.8 g/dL (6.3-8.3)
--- NOTE | 2016-11-24 07:46 | PN ---
DATE: 11/24/2016 TIME OF EVALUATION: 7:05 a.m. NEUROLOGICAL PROBLEM: Recurrent seizures. Abnormal MRI of the brain. Electroencephalography does n ot spanish moss picker seizure activities during the recording time. PHYSICAL EXAMINATION: VITAL SIGNS: Blood pressure 97/60, mean arterial pressure of 72, pulse rate 73, respiratory rate is 16, temperature 98.2. NEUROLOGIC: The patient is clinically stable for close to more than a 12-hour period. Examination is unchanged. Electroencephalogram does not spanish moss picker any electrical activities; however, the baseline electrical activity is normal. Considering seizure focus over deep temporal region whic h may not be picked up on electrical activity through the recording. She may need extended hour ambu latory video electroencephalogram which can be done as outpatient. The patient is advised not to drive until her seizure has been stabilized and to follow the [facility] recom mendation in [place]. The patient will be followed with me as outpatient. In the meantime, th e patient, if medically stable, can be discharged. Continue Keppra 500 mg twice a day and seizure pr ecaution as well as seizure hygiene and sleep hygiene have been discussed well with the patient. Jose Walter MD cc: [id number] TT: 11/24/2016 07:45:44 Confirmation # [id number] Dictation # [id number] tn
[2016-11-24 08:01] VITALS: BP 105/65; PULSE 97; RESP 16; TEMP 98; O2SAT 97
--- NOTE | 2016-11-24 09:42 | CP.PCM.PN ---
Subjective - Date & Time of Evaluation Date of Evaluation: 11/24/16 Time of Evaluation: 09:39 - Subjective Subjective: Progress Note for Dr. Walker Pt seen and examined at bedside. Pt doing well overnight after CRYSTAL FLAT GRINDER yesterday. No acute events overnight. Pt denies CP, SOB, N/V/D, dizziness, fevers, chills. Objective - Vital Signs/Intake and Output Vital Signs (last 24 hours): Temp Pulse Resp BP Pulse Ox 98 F 97 H 16 105/65 97 11/24/16 07:05 11/24/16 07:05 11/24/16 07:05 11/24/16 07:05 11/24/16 07:05 - Medications Medications: Current Medications Levetiracetam (Keppra) 500 mg PO BID ALEJANDRO Last Admin: 11/23/16 17:26 Dose: 500 mg - Labs Labs: 11/24/16 06:09 11/24/16 06:09 - Constitutional Appears: Well, No Acute Distress - Head Exam Head Exam: ATRAUMATIC, NORMAL INSPECTION, NORMOCEPHALIC - ENT Exam ENT Exam: Mucous Membranes Moist - Respiratory Exam Respiratory Exam: Clear to Ausculation Bilateral, NORMAL BREATHING PATTERN - Cardiovascular Exam Cardiovascular Exam: RRR, +S1, +S2 - GI/Abdominal Exam GI & Abdominal Exam: Soft, Normal Bowel Sounds. absent: Tenderness - Extremities Exam Extremities Exam: Normal Inspection - Neurological Exam Neurological Exam: Alert, Awake, Oriented x3 - Skin Skin Exam: Intact, Normal Color, Warm Assessment and Plan (1) POTS (postural orthostatic tachycardia syndrome) Assessment & Plan: Pt will continue to stay adequately hydrated Start multivitamin daily for electrolyte supplementation Pt is clear for discharge from cardiology perspective Status: Acute (2) Seizure Status: Acute
--- NOTE | 2016-11-24 11:36 | CP.PCM.PN ---
Subjective - Date & Time of Evaluation Date of Evaluation: 11/24/16 Time of Evaluation: 11:15 - Subjective Subjective: Progress note dictated #[id number] Objective - Vital Signs/Intake and Output Vital Signs (last 24 hours): Temp Pulse Resp BP Pulse Ox 98 F 97 H 16 105/65 97 11/24/16 07:05 11/24/16 07:05 11/24/16 07:05 11/24/16 07:05 11/24/16 07:05 - Medications Medications: Current Medications Levetiracetam (Keppra) 500 mg PO BID ALEJANDRO Last Admin: 11/24/16 10:07 Dose: 500 mg - Labs Labs: 11/24/16 06:09 11/24/16 06:09
--- NOTE | 2016-11-24 19:46 | DS ---
DISCHARGE DIAGNOSES: Near syncope, postural orthostatic tachycardia syndrome, seizure disorder, stat us post hypokalemia. HISTORY OF PRESENT ILLNESS: The patient is a 21-year-old female with past medical history of POTS, w ho has been following up with Dr. Walker. Came to the ED after patient had witnessed seizure-like activity while he was at school. The patient was found to be having seizures and patient was admitt ed for further management. Today, patient is feeling much better. Denies any headache, dizziness. Denies any chest pain, short ness of breath, wheezing. Denies any nausea, vomiting, abdominal pain, diarrhea, or constipation. D enies any urinary complaints. Denies any leg pains or leg cramps. Denies any other neurologic sympt oms. All other systems reviewed and were found to be negative. PHYSICAL EXAMINATION: GENERAL: Young female lying in bed in no acute distress. VITAL SIGNS: Blood pressure 105/65, pulse 97, respirations 16, temperature 98 degrees Fahrenheit, O2 sats 97% on room air. HEENT: Pupils equal, round, reacting to light and accommodation. Extraocular muscles intact. No ic terus, no pallor. No oral thrush. No pharyngeal congestion. No nasal congestion. NECK: Supple. No JVD, no thyromegaly. CHEST: Moving equally bilaterally on respiration. LUNGS: Bilateral vesicular breath sounds. No wheezing, no rhonchi. CARDIOVASCULAR: S1, S2 present, regular. ABDOMEN: Soft, nontender. Bowel sounds present. No guarding, no rigidity, no rebound tenderness no michael. CENTRAL NERVOUS SYSTEM: Alert, awake, oriented x 3. No focal deficits noted. EXTREMITIES: No edema. Palpable peripheral pulses. LABORATORY DATA: Done from this morning, WBC 10, hemoglobin 14.6, hematocrit 42.6, platelets 349. S odium 137, potassium 3.6, chloride 100, bicarb 26, BUN 12, creatinine 0.6, glucose 85, calcium 9.5. LFTs within normal limits. Urine drug screen negative. HOSPITAL COURSE: The patient was admitted to the hospital for tachycardia, hypokalemia, and with pos sible seizure. The patient was evaluated by cardiology and neurology. The patient was started on Ke ppra. While patient was waiting to be discharged, patient developed another seizure activity. Disch arge was held. For more than 12 hours the patient remained seizure free. As patient is otherwise fe eling better, cleared by neurology and cardiology, the patient is being discharged. Initially, lavon nicholson was found to be having low potassium, for which she received potassium in the ED and magnesium rem ained normal. All her electrolytes remained normal after IV hydration. Her tachycardia improved. A dvised patient to follow up with all the consultants. Discussed with patient at length and advised t he patient not to drive until evaluated by neurology and cleared by neurology to be allowed to drive again, which was also discussed by neurology with the patient. The patient understands the need and verbalized understanding. As patient is otherwise doing well, patient is being discharged. CONDITION UPON DISCHARGE: The patient is alert, awake, oriented x 3, and hemodynamically stable. DISCHARGE INSTRUCTIONS: Follow up with PMD. Follow up with neurology. Follow up with cardiology. DIET: Regular. ACTIVITY: As tolerated. DISCHARGE MEDICATIONS: Keppra 500 mg p.o. b.i.d. Jewel Dobbs MD cc: [id number] TT: 11/24/2016 19:45:32 ely
== END 2016-11-24 14:39 | disposition home or self-care (01) | DRG 310 ==
LOC: C.ER 11:41 → C.9E 15:35 → C.6T 17:03 → OBSVTOIN 11-23 15:41
PROVIDERS: ADMIT Internal Medicine; ATTEND Internal Medicine
DX: I49.8 Other specified cardiac arrhythmias (principal); R56.9 Unspecified convulsions; E87.6 Hypokalemia; Z91.018 Allergy to other foods

== ENCOUNTER 2016-12-14 11:49 | Emergency (ER) | payer BC ==
[2016-12-14 11:53] VITALS: O2SAT 100
--- NOTE | 2016-12-14 12:32 | C.PDOC ---
History Of Present Illness 21 y/o female presents to the ED for evaluation s/p breakthrough seizure. Pt states " I felt my heart racing and like it was going to happen again," seizure prior to EMS arrival then recurred while en route as per EMS. Seizure lasted 3 minutes. Mild post ictal, now resolved. No medications given en route. Pt currently asymptomatic. She is compliant with keppra, pending neurology follow up. Pt states keppra has been working well, this is the first time with recurrent symptoms since discharge. She admits to drinking alcohol last night. has baseline tachycardia, average low 100s. 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 PS "I FELT HEART RACING AND LIKE IT WAS GOING TO HAPPEN AGAIN". SZ PRIOR TO EMS ARRIVAL THEN RECUR WHILE EN ROUTE PER EMS. SZ LASTING 3 MINS. MILD POST ICTAL NOW RESOLVED. NO MEDS GIVEN EN ROUTE. CURRENTLY ASYMPT. COMPLIANT W KEPPRA, PENDING NEUROLOGY FOLLOW UP. PS KEPPRA HAS BEEN WORKING WELL, THIS IS FIRST TIME RECUR SX SINCE DISCHARGE. +ETOH LAST NIGHT. PS HAS BASELINE TACHYCARDIA AVG LOW 100S. EXAM NAD NONTOXIC HEENT ATRAUM LUNGS CTA B/L NO W/R/R CV RRR SINUS TACH NEURO INTACT EXT ATRAUM AROM SKIN ATRAUM Time Seen by Provider: 12/14/16 12:03 Chief Complaint (Nursing): Seizure History Per: Patient History/Exam Limitations: no limitations Number Of Seizures: Multiple Length Of Seizures (Duration): Minutes Precipitating Factor(s): Recent Alcohol Ingestion Post-ictal Period: Yes Severity: Mild Recent travel outside of the [place]: No Additional History Per: EMS Past Medical History Reviewed: Historical Data, Nursing Documentation, Vital Signs Vital Signs: Last Vital Signs Temp 97.6 F 12/14/16 11:53 Pulse 122 H 12/14/16 11:53 Resp 18 12/14/16 11:53 BP 121/76 12/14/16 11:53 Pulse Ox 100 12/14/16 12:58 - Medical History PMH: Seizures Denies: Chronic Kidney Disease Family History: States: Unknown Family Hx - Social History Hx Alcohol Use: Yes (social) Hx Substance Use: No - Immunization History Hx Tetanus Toxoid Vaccination: No (unknown) Hx Influenza Vaccination: No (unknown) Hx Pneumococcal Vaccination: No (unknown) Review Of Systems Except As Marked, All Systems Reviewed And Found Negative. Eyes: Negative for: Vision Change Cardiovascular: Negative for: Chest Pain Respiratory: Negative for: Shortness of Breath Gastrointestinal: Negative for: Nausea, Vomiting, Diarrhea Genitourinary: Negative for: Incontinence Neurological: Positive for: Seizures Physical Exam - Physical Exam Appears: Non-toxic, No Acute Distress Skin: Warm, Dry, No Rash Head: Atraumatic, Normacephalic Neck: Normal, Normal ROM, Supple Chest: Symmetrical Cardiovascular: Rhythm Regular (tachycardia), No Murmur Respiratory: Normal Breath Sounds, No Accessory Muscle Use, No Rales, No Rhonchi , No Wheezing Gastrointestinal/Abdominal: Normal Exam, Soft, No Tenderness Extremity: Normal ROM Extremity: Bilateral: Atraumatic Neurological/Psych: Oriented x3, Normal Speech, Normal Cognition, Normal Cranial Nerves, Normal Motor, Normal Sensation ED Course And Treatment - Laboratory Results Result Diagrams: 12/14/16 12:39 12/14/16 12:39 ECG: Interpreted By Tx ECG Rhythm: Sinus Tachycardia ECG Interpretation: No Changes From Prior, Abnormal Rate From EC (BPM) O2 Sat by Pulse Oximetry: 100 (room air) Pulse Ox Interpretation: Normal - Radiology CXR: Interpreted by Me CXR Interpretation: Yes: No Acute Disease Progress - Re-Evaluation Re-evaluation Note: 12/14/16 12:20 D/W DR VINSON AWARE OF ER FINDINGS. INCREASE KEPPRA TO 750 BID, WILL FU OFFICE SCHEDULED. 12/14/16 13:21 REMAINS ASYMPT, COMFORTABLE. NO RECUR SX SINCE PRIOR EVAL. PERSIST SINUS TACH @ 110. PENDING NEURO APPT 12/21 - Data Reviewed Data Reviewed: Lab, EKG, Old records Medical Decision Making Medical Decision Making: Plan: * EKG * CXR * labs * Keppra * IV fluids Disposition Counseled Patient/Family Regarding: Studies Performed, Diagnosis - Disposition Referrals: Jose Vinson MD [Staff Provider] - Disposition: HOME/ ROUTINE Disposition Time: 13:22 Condition: IMPROVED Additional Instructions: DO NOT DRINK ALCOHOL. TAKE KEPPRA 750 MG TWICE DAILY UNTIL FOLLOW UP WITH NEUROLOGIST Prescriptions: Levetiracetam [Keppra] 250 mg PO BID #20 tablet Instructions: Recurrent Seizures in Adults (ED) - Clinical Impression Clinical Impression: Breakthrough seizure - Scribe Statement The provider has reviewed the documentation as recorded by the Alex Rosa Provider Attestation: All medical record entries made by the Scribe were at my direction and personally dictated by me. I have reviewed the chart and agree that the record accurately reflects my personal performance of the history, physical exam, medical decision making, and the department course for this patient. I have also personally directed, reviewed, and agree with the discharge instructions and disposition.
[2016-12-14 12:42] LABS: BASO % 0.6 % (0.0-2.0); EOS # 0.1 K/uL (0.0-0.7); HEMOGLOBIN 14.9 g/dL (11.0-16.0); LYMPH # 1.9 K/uL (1.0-4.3); LYMPH % 27.8 % (20.0-40.0); MEAN CELL VOLUME 90.2 fL (81.0-99.0); MEAN CORPUSCULAR HEMOGLOBIN 30.9 pg (27.0-31.0); MEAN CORPUSCULAR HGB CONC 34.3 g/dL (33.0-37.0); MEAN PLATELET VOLUME 7.5 fL (7.2-11.7); MONO # 0.4 K/uL (0.0-0.8); MONO % 5.8 % (0.0-10.0); NEUT # 4.4 K/uL (1.8-7.0); NEUT % 63.8 % (50.0-75.0); NRBC % 0.1 % (0.0-2.0); RBC 4.82 Mil/uL (3.80-5.20); RED CELL DISTRIBUTION WIDTH 12.8 % (11.5-14.5); WHITE BLOOD COUNT 6.9 K/uL (4.8-10.8)
[2016-12-14 13:08] LABS: GFR AFRICAN-AMERICAN > 60; GFR NON-AFRICAN AMERICAN > 60
[2016-12-14 13:09] LABS: BLOOD UREA NITROGEN 14 mg/dL (7-17); CALCIUM 9.8 mg/dl (8.6-10.4)
--- NOTE | 2016-12-14 13:24 | RAD ---
PROCEDURE: CHEST RADIOGRAPH, 1 VIEW HISTORY: SEIZURE, TACHYCARDIA COMPARISON: Comparison made with prior chest radiograph 11/21/2016 FINDINGS: LUNGS: Clear. PLEURA: No pneumothorax or pleural fluid seen. CARDIOVASCULAR: Normal. OSSEOUS STRUCTURES: No significant abnormalities. VISUALIZED UPPER ABDOMEN: Normal. OTHER FINDINGS: None. IMPRESSION: No active disease.
[2016-12-14 13:40] VITALS: BP 109/65; PULSE 88; RESP 16; TEMP 98.1
--- NOTE | 2016-12-16 00:32 | CARD ---
APPROVED REPORT EKG Measurement Heart [id number] <Conclusion> Sinus tachycardia Biatrial enlargement Abnormal ECG
== END 2016-12-14 13:41 | disposition home or self-care (01) ==
LOC: C.ER 11:49
DX: G40.909 Epilepsy, unspecified, not intractable, without status epilepticus (principal)

== ENCOUNTER 2017-01-05 14:40 | Inpatient (IN) | payer BC ==
[2017-01-05 14:40] VITALS: BMI 18.8
[2017-01-05] MEDS ORDERED: Sodium Chloride 0.9% 1,000 ML IV ONE (14:49)
[2017-01-05] MEDS ORDERED: Sodium Chloride 0.9% 1,000 ML ONE (14:58)
[2017-01-05 15:07] LABS: BASO % 0.4 % (0.0-2.0); EOS # 0.2 K/uL (0.0-0.7); EOS % 3.1 % (0.0-4.0); HEMOGLOBIN 13.6 g/dL (11.0-16.0); LYMPH # 1.7 K/uL (1.0-4.3); LYMPH % 23.7 % (20.0-40.0); MEAN CELL VOLUME 89.7 fL (81.0-99.0); MEAN CORPUSCULAR HEMOGLOBIN 31.3 pg (27.0-31.0); MEAN CORPUSCULAR HGB CONC 34.9 g/dL (33.0-37.0); MEAN PLATELET VOLUME 7.4 fL (7.2-11.7); MONO # 0.6 K/uL (0.0-0.8); NEUT # 4.8 K/uL (1.8-7.0); NEUT % 64.8 % (50.0-75.0); NRBC % 0.1 % (0.0-2.0); RBC 4.33 Mil/uL (3.80-5.20); RED CELL DISTRIBUTION WIDTH 12.7 % (11.5-14.5); WHITE BLOOD COUNT 7.4 K/uL (4.8-10.8)
[2017-01-05 15:14] LABS: ALBUMIN 4.4 g/dL (3.5-5.0)
[2017-01-05 15:17] LABS: ALB/GLOB RATIO 1.7 (1.0-2.1); AST/SGOT 20 U/L (14-36); GFR AFRICAN-AMERICAN > 60; GFR NON-AFRICAN AMERICAN > 60
[2017-01-05 15:18] LABS: ALT/SGPT 19 U/L (9-52); BLOOD UREA NITROGEN 12 mg/dL (7-17); CALCIUM 8.7 mg/dl (8.6-10.4)
[2017-01-05 15:19] LABS: MAGNESIUM 1.7 mg/dL (1.6-2.3)
[2017-01-05 15:26] LABS: HCG,QUALITATIVE URINE NEGATIVE (NEGATIVE)
[2017-01-05 15:30] LABS: SQUAMOUS EPITHIAL 2 /hpf (0-5); URINE BACTERIA RARE (<OCC); URINE BILIRUBIN NEGATIVE (NEGATIVE); URINE BLOOD NEGATIVE (NEGATIVE); URINE CLARITY Clear (Clear); URINE COLOR Straw (YELLOW); URINE GLUCOSE (UA) NORMAL (Normal); URINE LEUKOCYTE ESTERASE 1+ Leu/uL (Negative); URINE NITRATE NEGATIVE (NEGATIVE); URINE PROTEIN NEGATIVE (NEGATIVE); URINE UROBILINOGEN NORMAL mg/dL (0.2-1.0)
[2017-01-05 15:38] LABS: BARBITURATES, UR NEGATIVE (NEGATIVE)
[2017-01-05 15:39] LABS: BENZODIAZEPINES, UR NEGATIVE (NEGATIVE)
[2017-01-05 15:42] LABS: OPIATES, UR NEGATIVE (NEGATIVE)
[2017-01-05 15:43] LABS: PHENCYCLIDINE, UR NEGATIVE (NEGATIVE)
--- NOTE | 2017-01-05 18:17 | PCM.RRTMUL ---
<Ramos Brown S - Last Filed: 01/05/17 18:11> DIRECT CARE STAFFER Nurses Assessment - Situation Location:: radiology - Vital Signs Blood Pressure:: 127/78 Pulse Rate:: 106 Respiratory Rate:: 16 I.Reason for DIRECT CARE STAFFER - A) Acute Change in Patient: Subjective: Pt having serizures Plan - A. End of DIRECT CARE STAFFER Vital Signs: Blood Pressure: 128/80 Pulse Rate: 118 - B. 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 Patient had 3 witnessed seizures within radiology department. Upon seeing patient vitals were retrieved as indicated. She was lethargic and postictal. 1mg of ativan was administered in IVP within radiology. Pt was then brought to ED. Within ED patient had a 4th seizure and at this time she was given another 1mg IVP of ativan. She was stabilized and her care was taken over by ED team. 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 Per one member, patient with known seizure disorder, took her Keppra today, ate lunch with her colleagues. Patient witnesses tonic-clonic seizures (about 3), lasting few seconds and associated post-ictal state. Patient given Ativan 1mg IVX1. Abated seizure in time to transfer to patient the emergency room since she is considered outpatient. Patient came to in the elevator, speaking in Vincentian, smiling, able to guard airway. Patient brought to the emergency room signed out to ED nurse Radha, and Ed Yvonne Toney.
--- NOTE | 2017-01-05 19:49 | C.PDOC ---
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 A "rapid response" was called and pt was transferred to the ED. Pt was still seizing upon arrival to the ED and was given Ativan 2mg IVP. Seizure stopped at that time. But pt had another seizure in the ED and was given another 2mg Ativan IVP. Pt then had a third seizure in the ED and Dr. Walter was contacted. He wants pt to be admitted to the hospital under Dr. Saldaña's service. However Dr. Saldaña is on the "blue list" and stated he wants pt admitted on the hospitalist service. Pt was then given Keppra 1000mg IVPB. Time Seen by Provider: 01/05/17 14:42 Chief Complaint (Nursing): Seizure History Per: Patient, Other (Hospital staff) Number Of Seizures: Multiple Length Of Seizures (Duration): Minutes Quality Of Seizure: Generalized Precipitating Factor(s): None Post-ictal Period: Yes Severity: Moderate Additional History Per: Prior Records Past Medical History Reviewed: Historical Data, Nursing Documentation, Vital Signs Vital Signs: Last Vital Signs Temp 98.7 F 01/05/17 14:43 Pulse 118 H 01/05/17 18:18 Resp 16 01/05/17 18:18 BP 128/80 01/05/17 18:18 Pulse Ox 97 01/05/17 18:17 - Medical History PMH: Seizures Family History: States: Unknown Family Hx - Social History Hx Alcohol Use: No (social) Hx Substance Use: No - Immunization History Hx Tetanus Toxoid Vaccination: No (unknown) Hx Influenza Vaccination: No (unknown) Hx Pneumococcal Vaccination: No (unknown) Review Of Systems Except As Marked, All Systems Reviewed And Found Negative. Constitutional: Negative for: Fever Cardiovascular: Negative for: Chest Pain Respiratory: Negative for: Shortness of Breath Gastrointestinal: Negative for: Vomiting, Abdominal Pain Musculoskeletal: Negative for: Neck Pain Skin: Negative for: Rash Neurological: Positive for: Seizures Physical Exam - Physical Exam Appears: Non-toxic Skin: Normal Color, Warm, Dry, No Rash Head: Atraumatic, Normacephalic Eye(s): bilateral: PERRL, EOMI Neck: Normal ROM, Supple Cardiovascular: Rhythm Regular Respiratory: Normal Breath Sounds, No Accessory Muscle Use Gastrointestinal/Abdominal: Soft, No Tenderness Extremity: Normal ROM Neurological/Psych: Oriented x3, Normal Motor, Normal Sensation ED Course And Treatment - Laboratory Results Result Diagrams: 01/05/17 15:03 01/05/17 15:03 Lab Interpretation: No Acute Changes Urine POC: Negative O2 Sat by Pulse Oximetry: 97 Pulse Ox Interpretation: Normal - Physician Consult Information Physician Contacted: Jose Walter Outcome Of Conversation: He wants to increase dose of Keppra to 1000mg bid. He will see pt in the hospital. Progress - Interventions Interventions:: Observation, Intravenous fluid - Medications Administered Intravenous: Other (Ativan. Keppra) - Data Reviewed Data Reviewed: Lab, Old records - Critical Care Citical Care: Excluding Proc Time Critical Care Time: 60 minutes - Continuity of Care Discussed patient case with:: Patient, ED Nurse, On-call PMD-pt unassigned Discussed pt. case with chain sales consultant/specialty: Neurology - Patient Plan Patient Plan: Admission, Telemetry Disposition Discussed With DrEusebio: Lico Mehta Comment: He accepted pt on hospitalist service. Doctor Will See Patient In The: Hospital Counseled Patient/Family Regarding: Studies Performed, Diagnosis - Disposition Disposition: HOSPITALIZED Disposition Time: 19:51 Condition: GUARDED - Clinical Impression Clinical Impression: Recurrent seizures
[2017-01-05 23:10] VITALS: RESP 20
--- NOTE | 2017-01-06 04:52 | CP.PCM.HP ---
<Miladys Kaur - Last Filed: 01/06/17 04:55> History of Present Illness - History of Present Illness History of Present Illness: Patient seen and evaluate at approximately 20:45 CC: seizure HPI: 21 year old female with PMHX of epilepsy ( diagnosed 1-2 years ago) presents after four witnessed seizures earlier today. 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 An PAPERHANGER was called during which patient suffered 2 more seizures. Patient was administered 2 mg of Ativan which patient responded to. Patient was brought to the emergency department for further evaluation where another seizure occurred. Patient was administered an additional 2 mg of Ativan. At the time of technical writer's evaluation, patient was calm , lucid, awake, alert and oriented. Patient could only recall a few details of the events earlier. Patient states that she often feels an aura or tremors prior to the onset of a seizure. She is able to identify lack of sleep as well as alcohol intake as her triggers. Patient states that she has decreased her intake of alcohol as a result. She states that she was diagnosed with epilepsy 1 -2 years ago by her Neurologist Dr. Walter. Prior to that, she cannot identify any events while growing up. Patient states that her last seizure [place] 2 [place] She visited her Neurologist the following Monday afterwards. He believed that it was likely due to dehydration as it was very hot outside that day. Patient admits that she may not have been well hydrated. At this time, she denies subjective fevers or chills, bowel changes, back pain, weight changes, new medications, drug use, visual changes or headaches at this time. PMHx- as stated above PSHx-denies Fam Hx- Mom "may have" HTN, Dad has Rheumatoid arthritis Social Hx- denies tobacco use or illicit drug use; admits to social alcohol use - approx 2 beers or 1 glass of wine a week. Meds- Keppra 750 mg PO BID Allergies-bananas (anaphylaxis) PMD- Dr. Kaplan in [place], Neurologist- Dr. Walter Present on Admission - Present on Admission Any Indicators Present on Admission: No Review of Systems - Constitutional Constitutional: absent: Anorexia, Chills - EENT Eyes: Change in Vision. absent: Discharge Nose/Mouth/Throat: absent: Nasal Congestion, Nasal Discharge - Respiratory Respiratory: Dyspnea - Gastrointestinal Gastrointestinal: absent: Nausea, Vomiting - Genitourinary Genitourinary: absent: Urinary Incontinence - Musculoskeletal Musculoskeletal: absent: Back Pain, Neck Pain, Numbness - Neurological Neurological: Convulsions, Tremor - Hematologic/Lymphatic Hematologic: absent: Easy Bleeding, Easy Bruising Past Patient History - Infectious Disease Hx of Infectious Diseases: None - Tetanus Immunizations Tetanus Immunization: Unknown - Past Medical History & Family History Past Medical History?: Yes - Past Social History Smoking Status: Never Smoked - CARDIAC Hx Cardiac Disorders: No - PULMONARY Hx Respiratory Disorders: No - NEUROLOGICAL Hx Neurological Disorder: Yes Hx Seizures: Yes - HEENT Hx HEENT Problems: No - RENAL Hx Chronic Kidney Disease: No - ENDOCRINE/METABOLIC Hx Endocrine Disorders: No - HEMATOLOGICAL/ONCOLOGICAL Hx Blood Disorders: No - INTEGUMENTARY Hx Dermatological Problems: No - MUSCULOSKELETAL/RHEUMATOLOGICAL Hx Falls: No - GASTROINTESTINAL Hx Gastrointestinal Disorders: No - GENITOURINARY/GYNECOLOGICAL Hx Genitourinary Disorders: No - PSYCHIATRIC Hx Substance Use: No - SURGICAL HISTORY Hx Surgeries: No - ANESTHESIA Hx Anesthesia: No Hx Anesthesia Reactions: No Meds Allergies/Adverse Reactions: Allergies Allergy/AdvReac Type Severity Reaction Status Date / Time banana Allergy ANAPHYLAXIS Verified 01/05/17 14:42 bananas Allergy Uncoded 01/05/17 14:42 Physical Exam - Constitutional Appears: Non-toxic, No Acute Distress - Head Exam Head Exam: ATRAUMATIC, NORMAL INSPECTION, NORMOCEPHALIC - Eye Exam Eye Exam: EOMI, Normal appearance, PERRL Pupil Exam: NORMAL ACCOMODATION, PERRL - ENT Exam ENT Exam: Mucous Membranes Moist, Normal Exam - Neck Exam Neck exam: Positive for: Full Rom - Respiratory Exam Respiratory Exam: NORMAL BREATHING PATTERN. absent: Wheezes - Cardiovascular Exam Cardiovascular Exam: +S1, +S2 - GI/Abdominal Exam GI & Abdominal Exam: Normal Bowel Sounds, Soft - Extremities Exam Extremities exam: Positive for: full ROM, normal capillary refill, normal inspection, pedal pulses present. Negative for: calf tenderness, joint swelling , pedal edema, tenderness - Back Exam Back exam: FULL ROM - Neurological Exam Neurological exam: Alert, CN II-XII Intact, Normal Gait, Oriented x3 - Expanded Neurological Exam Expanded Cranial nerves: EOM's Intact: Normal, Facial Sensation: Normal Ataxia: No Cerebellar Function: Finger to Nose: Normal, Heel to Hollins: Normal, Romberg: Normal Upper motor neuron: Pronator Drift: Normal Sensory exam: Lower Extremity Light Touch: Normal, Lower Extremity Pin Prick: Normal, Lower Extremity Temperature: Normal, Upper Extremity Light Touch: Normal , Upper Extremity Pin Prick: Normal, Upper Extremity Temperature: Normal Neuro motor strength exam: Left Upper Extremity: 5, Right Upper Extremity: 5, Left Lower Extremity: 5, Right Lower Extremity: 5 DTR: Brachioradialis Left: 2+, Brachioradialis Right: 2+, Patellar Left: 2+, Patellar Right: 2+ - Psychiatric Exam Psychiatric exam: Normal Affect, Normal Mood - Skin Skin Exam: Normal Color, Warm Results - Vital Signs Recent Vital Signs: Last Vital Signs Temp 97.4 F L 01/05/17 23:05 Pulse 69 01/06/17 04:00 Resp 20 01/05/17 23:05 BP 98/60 L 01/05/17 23:05 Pulse Ox 98 01/05/17 23:05 - Labs Result Diagrams: 01/05/17 15:03 01/05/17 15:03 Labs: Laboratory Results - last 24 hr 01/05/17 22:00 Prolactin 17.6 Assessment & Plan (1) Recurrent seizures Assessment and Plan: Patient last administered ativan 2 mg in the ED Continue Keppra 750 mg PO BID F/U Dr. Walter recommendations F/U EEG F/U Lab studies: Keppra, Prolactin UDS negative Seizure precautions Last MRI 11/2016: slight asymmetry in size of mesial temporal lobe with possible mild atrophy in left side. mildly enlarged pituitary gland. Refer to complete report. Identify and avoid triggers . Patient encouraged to keep a calendar of occurrence of seizures in order to track events. Status: Chronic (2) Prophylactic measure Assessment and Plan: SCDs No GI Prophylaxis indicated at this time Status: Acute <Lico Mehta - Last Filed: 01/06/17 06:26> Results - Vital Signs Recent Vital Signs: Last Vital Signs Temp 97.4 F L 01/05/17 23:05 Pulse 69 01/06/17 04:00 Resp 20 01/05/17 23:05 BP 98/60 L 01/05/17 23:05 Pulse Ox 98 01/05/17 23:05 - Labs Result Diagrams: 01/05/17 15:03 01/05/17 15:03 Labs: Laboratory Results - last 24 hr 01/05/17 22:00 Prolactin 17.6 Assessment & Plan - Date & Time Date: 01/06/17 (I have seen and examined the patient. I agree with the findings and plan of care as documented by Dr. Kaur. Patient with recurrent seizures. Consult neuro. Continue home meds - Keppra. Ativan received in ED. Seizure precautions. Check Keppra level. Monitor for acute changes.) Time: 06:25 Attending/Attestation - Attestation I have personally seen and examined this patient.: Yes I have fully participated in the care of the patient.: Yes I have reviewed all pertinent clinical information: Yes
--- NOTE | 2017-01-06 07:04 | CP.PCM.CON ---
History of Present Illness - History of Present Illness History of Present Illness: PATIENT IS KNOWN TO ME HAD SEIZURES DUE TO HER SLEEP DEPRIVATION ON KEPPRA 100 MG BID SLEPT GOOD CAN BE D/Armin AND FOLLOW UP WITH ME OP NO FURTHER WORK UP IS NEEDED Past Patient History - Infectious Disease Hx of Infectious Diseases: None - Tetanus Immunizations Tetanus Immunization: Unknown - Past Medical History & Family History Past Medical History?: Yes - Past Social History Smoking Status: Never Smoked - CARDIAC Hx Cardiac Disorders: No - PULMONARY Hx Respiratory Disorders: No - NEUROLOGICAL Hx Neurological Disorder: Yes Hx Seizures: Yes - HEENT Hx HEENT Problems: No - RENAL Hx Chronic Kidney Disease: No - ENDOCRINE/METABOLIC Hx Endocrine Disorders: No - HEMATOLOGICAL/ONCOLOGICAL Hx Blood Disorders: No - INTEGUMENTARY Hx Dermatological Problems: No - MUSCULOSKELETAL/RHEUMATOLOGICAL Hx Falls: No - GASTROINTESTINAL Hx Gastrointestinal Disorders: No - GENITOURINARY/GYNECOLOGICAL Hx Genitourinary Disorders: No - PSYCHIATRIC Hx Substance Use: No - SURGICAL HISTORY Hx Surgeries: No - ANESTHESIA Hx Anesthesia: No Hx Anesthesia Reactions: No Meds Allergies/Adverse Reactions: Allergies Allergy/AdvReac Type Severity Reaction Status Date / Time banana Allergy ANAPHYLAXIS Verified 01/05/17 14:42 bananas Allergy Uncoded 01/05/17 14:42 - Medications Medications: Current Medications Levetiracetam (Keppra) 750 mg PO BID ALEJANDRO Results - Vital Signs Recent Vital Signs: Last Vital Signs Temp 97.4 F L 01/05/17 23:05 Pulse 69 01/06/17 04:00 Resp 20 01/05/17 23:05 BP 98/60 L 01/05/17 23:05 Pulse Ox 98 01/05/17 23:05 - Labs Result Diagrams: 01/05/17 15:03 01/05/17 15:03 Labs: Laboratory Results - last 24 hr 01/05/17 22:00 Prolactin 17.6
[2017-01-06 07:39] LABS: BASO % 0.5 % (0.0-2.0); EOS # 0.3 K/uL (0.0-0.7); EOS % 4.1 % (0.0-4.0); HEMOGLOBIN 13.5 g/dL (11.0-16.0); LYMPH # 1.8 K/uL (1.0-4.3); LYMPH % 25.8 % (20.0-40.0); MEAN CELL VOLUME 89.2 fL (81.0-99.0); MEAN CORPUSCULAR HEMOGLOBIN 31.6 pg (27.0-31.0); MEAN CORPUSCULAR HGB CONC 35.4 g/dL (33.0-37.0); MEAN PLATELET VOLUME 7.7 fL (7.2-11.7); MONO # 0.6 K/uL (0.0-0.8); MONO % 8.8 % (0.0-10.0); NEUT # 4.3 K/uL (1.8-7.0); NEUT % 60.8 % (50.0-75.0); RBC 4.28 Mil/uL (3.80-5.20); RED CELL DISTRIBUTION WIDTH 12.7 % (11.5-14.5)
[2017-01-06 07:56] LABS: ALBUMIN 3.7 g/dL (3.5-5.0)
[2017-01-06 07:59] LABS: ALB/GLOB RATIO 1.4 (1.0-2.1); ALT/SGPT 21 U/L (9-52); AST/SGOT 19 U/L (14-36); BLOOD UREA NITROGEN 9 mg/dL (7-17); GFR AFRICAN-AMERICAN > 60; GFR NON-AFRICAN AMERICAN > 60
[2017-01-06 08:00] LABS: CALCIUM 9.3 mg/dl (8.6-10.4); MAGNESIUM 1.9 mg/dL (1.6-2.3)
[2017-01-06 08:17] VITALS: BP 102/69; TEMP 98.2; O2SAT 97
[2017-01-06 08:19] LABS: PROLACTIN 48.3 ng/mL (3.0-18.9)
[2017-01-06 08:22] VITALS: PULSE 105
--- NOTE | 2017-01-06 11:52 | CON ---
DATE: 01/06/2017 REASON FOR CONSULTATION: Seizures. 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 She had a witnessed seizure activity, is being brought into the emergency room and she did have two seizures following this. From neurological point of view, I was called in to evaluate her for further management. HISTORY OF PRESENT ILLNESS: The patient is a 21-year-old right-handed female, who is known to me from her previous hospitalization as well as been seeing me as outpatient, who has been subtherapeutic and noncompliant with medication with Keppra and one time she had alcohol with medication, had seizures, been seen in the emergency room in other hospital. Lately, she has been compliant with medication; however, she skipped two days of sleep. Barely she slept only 3 hours for two nights. She also stressed out because of her driving privilege being held due to her seizures. 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 The patient was given Ativan. Few minutes after, she had another episode, being witnessed by the emergency room physician. At that time, I was contacted. I increased Keppra dose to 1000 mg, to keep her for observation for overnight. PAST MEDICAL HISTORY: Unremarkable except POT syndrome. PERSONAL HISTORY: Denies drinking, social alcohol use. Approximately two beers or one glass of wine a week. ALLERGIES: Banana. REVIEW OF SYSTEMS: A 12-point system has been reviewed except neurological system, having recurrent seizures. MEDICATIONS: Keppra 1000 mg twice a day. PHYSICAL EXAMINATION: VITAL SIGNS: Blood pressure 98/62, pulse rate is 78, respiratory rate is 16, and temperature is afebrile. NECK: Supple. No carotid bruits. HEART: Sounds regular. CHEST: Fair air entry. EXTREMITIES: No edema in legs. NEUROLOGIC EXAMINATION: MENTAL STATUS EXAMINATION: She is awake, alert,and oriented to person, place, and time. Speech is clear, naming, repetition, fluency, and comprehension all within normal. CRANIAL NERVE EXAMINATION: Visual field intact. Pupils are reactive to light. Extraocular movements normal. No nystagmus. No facial sensory deficits. No facial asymmetry. Hearing is normal. Tongue is midline. Good gag. MOTOR EXAMINATION: Outstretched hand with eyes closed. No drift noted. Power is symmetric on either side. Deep tendon reflexes; biceps, brachialis, and triceps are 2+ on either side. Plantars are downgoing. SENSORY EXAMINATION: Grossly intact. No cortical sensory loss. COORDINATION: [id number] test is intact. GAIT: Normal. Romberg sign is negative. Tandem is good. The patient does not show any toxic effects from her Keppra. CONCLUSION: Upon reviewing her history and neurological examination, the patient presenting with seizure disorder because of possible sleep deprivation. The current examination does not show any long tract sign. The patient is tolerating well with the current medication. The patient is advised to continue the same dose of medication and the importance of sleep is being stressed to her. The patient is clinically stable for more than 10-hour period. She seems to be normal and she can be discharge and advised to continue the same medication as I advised. LABORATORY DATA: Her WBC 7.4, hemoglobin 13.6, hematocrit 38.9, and platelet 305. Sodium 141, potassium 3.7, chloride 99, bicarbonate 24, BUN 12, and creatinine 0.9. GFR is more than 60. Urinalysis, 1+ leukocyte esterase. The patient does not show any positive drug screen on examination. The patient will be discharged and the patient will be followed by me as an outpatient. Jose Walter MD MTDD
--- NOTE | 2017-01-06 22:03 | CP.PCM.DIS ---
Provider - Provider Date of Admission: 01/05/17 19:52 Attending physician: Lico Mehta MD Time Spent in preparation of Discharge (in minutes): 30 Hospital Course - Lab Results Lab Results: Most Recent Lab Values WBC 7.0 K/uL (4.8-10.8) 01/06/17 07:03 RBC 4.28 Mil/uL (3.80-5.20) 01/06/17 07:03 Hgb 13.5 g/dL (11.0-16.0) 01/06/17 07:03 Hct 38.2 % (34.0-47.0) 01/06/17 07:03 MCV 89.2 fL (81.0-99.0) 01/06/17 07:03 MCH 31.6 pg (27.0-31.0) H 01/06/17 07:03 MCHC 35.4 g/dL (33.0-37.0) 01/06/17 07:03 RDW 12.7 % (11.5-14.5) 01/06/17 07:03 Plt Count 290 K/uL (130-400) 01/06/17 07:03 MPV 7.7 fL (7.2-11.7) 01/06/17 07:03 Neut % (Auto) 60.8 % (50.0-75.0) 01/06/17 07:03 Lymph % (Auto) 25.8 % (20.0-40.0) 01/06/17 07:03 [place] % (Auto) 8.8 % (0.0-10.0) 01/06/17 07:03 Eos % (Auto) 4.1 % (0.0-4.0) H 01/06/17 07:03 Baso % (Auto) 0.5 % (0.0-2.0) 01/06/17 07:03 Neut # 4.3 K/uL (1.8-7.0) 01/06/17 07:03 Lymph # 1.8 K/uL (1.0-4.3) 01/06/17 07:03 [place] # 0.6 K/uL (0.0-0.8) 01/06/17 07:03 Eos # 0.3 K/uL (0.0-0.7) 01/06/17 07:03 Baso # 0.0 K/uL (0.0-0.2) 01/06/17 07:03 Sodium 138 mmol/L (132-148) 01/06/17 07:03 Potassium 3.6 mmol/L (3.6-5.2) 01/06/17 07:03 Chloride 100 mmol/L (98-107) 01/06/17 07:03 Carbon Dioxide 26 mmol/L (22-30) 01/06/17 07:03 Anion Gap 16 (10-20) 01/06/17 07:03 BUN 9 mg/dL (7-17) 01/06/17 07:03 Creatinine 0.6 MG/DL (0.7-1.2) L 01/06/17 07:03 Est GFR ( Amer) > 60 01/06/17 07:03 Est GFR (Non-Af Amer) > 60 01/06/17 07:03 Random Glucose 87 mg/dL (65-105) 01/06/17 07:03 Lactic Acid 2.0 mmol/L (0.7-2.1) 01/05/17 15:03 Calcium 9.3 mg/dl (8.6-10.4) 01/06/17 07:03 Phosphorus 4.4 mg/dL (2.5-4.5) 01/06/17 07:03 Magnesium 1.9 mg/dL (1.6-2.3) 01/06/17 07:03 Total Bilirubin 1.1 mg/dL (0.2-1.3) 01/06/17 07:03 AST 19 U/L (14-36) 01/06/17 07:03 ALT 21 U/L (9-52) 01/06/17 07:03 Alkaline Phosphatase 66 U/L (38-126) 01/06/17 07:03 Total Protein 6.4 g/dL (6.3-8.3) 01/06/17 07:03 Albumin 3.7 g/dL (3.5-5.0) 01/06/17 07:03 Globulin 2.7 gm/dL (2.2-3.9) 01/06/17 07:03 Albumin/Globulin Ratio 1.4 (1.0-2.1) 01/06/17 07:03 Free T4 0.91 ng/dL (0.78-2.19) 01/06/17 07:03 TSH 3rd Generation 1.24 mIU/L (0.46-4.68) 01/06/17 07:03 Prolactin 48.3 ng/mL (3.0-18.9) H 01/06/17 07:03 Urine Color Straw (YELLOW) 01/05/17 15:18 Urine Clarity Clear (Clear) 01/05/17 15:18 Urine pH 7.0 (5.0-8.0) 01/05/17 15:18 Ur Specific [place] 1.006 (1.003-1.030) 01/05/17 15:18 Urine Protein Negative mg/dL (NEGATIVE) 01/05/17 15:18 Urine Glucose (UA) Normal mg/dL (Normal) 01/05/17 15:18 Urine Ketones Negative mg/dL (NEGATIVE) 01/05/17 15:18 Urine Blood Negative (NEGATIVE) 01/05/17 15:18 Urine Nitrate Negative (NEGATIVE) 01/05/17 15:18 Urine Bilirubin Negative (NEGATIVE) 01/05/17 15:18 Urine Urobilinogen Normal mg/dL (0.2-1.0) 01/05/17 15:18 Ur Leukocyte Esterase 1+ [place]ma/uL (Negative) H 01/05/17 15:18 Urine WBC (Auto) 4 /hpf (0-5) 01/05/17 15:18 Urine RBC (Auto) < 1 /hpf (0-3) 01/05/17 15:18 Ur Squamous Epith Cells 2 /hpf (0-5) 01/05/17 15:18 Urine Bacteria Rare (<OCC) 01/05/17 15:18 Urine HCG, Qual Negative (NEGATIVE) 01/05/17 15:18 Urine Opiates Screen Negative (NEGATIVE) 01/05/17 15:18 Urine Methadone Screen Negative (NEGATIVE) 01/05/17 15:18 Ur Barbiturates Screen Negative (NEGATIVE) 01/05/17 15:18 Ur Phencyclidine Scrn Negative (NEGATIVE) 01/05/17 15:18 Ur Amphetamines Screen Negative (NEGATIVE) 01/05/17 15:18 U Benzodiazepines Scrn Negative (NEGATIVE) 01/05/17 15:18 U Oth Cocaine Metabols Negative (NEGATIVE) 01/05/17 15:18 U Cannabinoids Screen Negative (NEGATIVE) 01/05/17 15:18 Alcohol, Quantitative < 10 mg/dl (0-10) 01/05/17 15:03 - Hospital Course Hospital Course: As per admission documentation: HPI: 21 year old female with PMHX of epilepsy ( diagnosed 1-2 years ago) presents after four witnessed seizures earlier today. 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 An SMALL OFFSET PRINTER was called during which patient suffered 2 more seizures. Patient was administered 2 mg of Ativan which patient responded to. Patient was brought to the emergency department for further evaluation where another seizure occurred. Patient was administered an additional 2 mg of Ativan. At the time of check writer salesperson's evaluation, patient was calm , lucid, awake, alert and oriented. Patient could only recall a few details of the events earlier. Patient states that she often feels an aura or tremors prior to the onset of a seizure. She is able to identify lack of sleep as well as alcohol intake as her triggers. Patient states that she has decreased her intake of alcohol as a result. She states that she was diagnosed with epilepsy 1 -2 years ago by her Neurologist Dr. Walter. Prior to that, she cannot identify any events while growing up. Patient states that her last seizure occurred 2 [place] She visited her Neurologist the following Monday afterwards. He believed that it was likely due to dehydration as it was very hot outside that day. Patient admits that she may not have been well hydrated. At this time, she denies subjective fevers or chills, bowel changes, back pain, weight changes, new medications, drug use, visual changes or headaches at this time. Patient was admitted to the hospital for observation with Dr. Urias on 01/06/[address] Walter, Neurology, was consulted as the patient sees him as an outpatient. Patient was observed overnight and monitored. Patient was cleared by Neurology to be discharged home. Patient was sent home to follow up with Dr. Walter outpatient. Discharge instructions: Please discharge patient home, as per Dr. Santillan. Patient is to continue home medications as instructed. Patient is to follow up with Dr. Walter within 1 week. If symptoms worsen, patient is to return to the hospital for further evaluation and treatment. Instructions were explained to the patient. Patient understands and agrees. Discharge medications: No prescriptions given Continue Home Medications: Keppra 750mg PO BID - Date & Time of H&P Date of H&P: 01/06/17 Time of H&P: 04:35 Discharge Exam - Head Exam Head Exam: ATRAUMATIC, NORMAL INSPECTION, NORMOCEPHALIC - ENT Exam ENT Exam: Mucous Membranes Moist - Respiratory Exam Respiratory Exam: Clear to PA & Lateral, NORMAL BREATHING PATTERN, UNREMARKABLE. absent: Wheezes, Respiratory Distress, Stridor - Cardiovascular Exam Cardiovascular Exam: REGULAR RHYTHM, +S1, +S2 - GI/Abdominal Exam GI & Abdominal Exam: Normal Bowel Sounds, Unremarkable. absent: Distended, Firm , Guarding - Neurological Exam Neurological exam: Alert, Oriented x3 - Psychiatric Exam Psychiatric exam: Normal Affect, Normal Mood - Skin Skin Exam: Dry, Normal Color, Warm Discharge Plan - Follow Up Plan Condition: GUARDED Disposition: HOME/ ROUTINE Instructions: Recurrent Seizures in Adults (DC) Additional Instructions: Please discharge patient home, as per Dr. Nava. Patient is to continue home medications as instructed. Patient is to follow up with Dr. Walter within 1 week. If symptoms worsen, patient is to return to the hospital for further evaluation and treatment. Instructions were explained to the patient. Patient understands and agrees. Discharge medications: No prescriptions given Continue Home Medications: Keppra 750mg PO BID Referrals: Jose Walter MD [Staff Provider] -
[2017-01-09 06:43] LABS: LEVETIRACETAM 42.3 mcg/mL
== END 2017-01-06 12:42 | disposition home or self-care (01) | DRG 101 ==
LOC: C.ER 14:40 → C.9E 19:52 → C.6T 21:36
PROVIDERS: ADMIT Family Medicine; ATTEND Family Medicine
DX: G40.909 Epilepsy, unspecified, not intractable, without status epilepticus (principal); Z91.14 Patient's other noncompliance with medication regimen; Z79.899 Other long term (current) drug therapy; Z72.820 Sleep deprivation

== ENCOUNTER 2017-04-19 13:59 | Emergency (ER) | payer BC ==
[2017-04-19 14:00] VITALS: BMI 18.8
[2017-04-19 14:12] VITALS: RESP 18
--- NOTE | 2017-04-19 14:18 | C.PDOC ---
History Of Present Illness 21 y/o F c PMHx epilepsy p/w seizure just prior to arrival. 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 Fellow staff members laid patient down on floor, deny any trauma. Patient now awake but drowsy but answering all questions. She states she was recently admitted for recurrent seizures, had Keppra increased, has been compliant and does not wish to be readmitted. She denies any pain, urinary or bowel incontinence, tongue bite, fever, stiff neck, vomiting, dysuria. Time Seen by Provider: 04/19/17 14:06 Chief Complaint (Nursing): Seizure Past Medical History Vital Signs: Last Vital Signs Temp 98.8 F 04/19/17 16:39 Pulse 112 H 04/19/17 16:39 Resp 18 04/19/17 16:39 BP 104/59 L 04/19/17 16:39 Pulse Ox 98 04/19/17 16:39 - Medical History PMH: Seizures Denies: Chronic Kidney Disease Family History: States: Unknown Family Hx - Social History Hx Alcohol Use: Yes (occasional) Hx Substance Use: No - Immunization History Hx Tetanus Toxoid Vaccination: Yes Hx Influenza Vaccination: Yes Hx Pneumococcal Vaccination: No Review Of Systems Except As Marked, All Systems Reviewed And Found Negative. Constitutional: Negative for: Fever Respiratory: Negative for: Shortness of Breath Physical Exam - Physical Exam Appears: Non-toxic, No Acute Distress Skin: Normal Color Head: Atraumatic, Normacephalic Eye(s): bilateral: PERRL, EOMI Oral Mucosa: Moist Throat: No Erythema, No Exudate Neck: No Midline Cervical Tenderness, No Step Off Deformity, Supple Chest: No Tenderness Cardiovascular: Other (Tachycardic) Respiratory: Normal Breath Sounds Gastrointestinal/Abdominal: Soft, No Tenderness Back: No CVA Tenderness, No Vertebral Tenderness Extremity: Normal ROM, No Tenderness, No Swelling Pulses: Left Radial: Normal, Right Radial: Normal Neurological/Psych: Other (Drowsy, no focal deficit) ED Course And Treatment - Laboratory Results Result Diagrams: 04/19/17 14:26 04/19/17 14:26 O2 Sat by Pulse Oximetry: 96 Medical Decision Making Medical Decision Making: Will monitor in ED until post ictal period resolved and patient at baseline. Patient with 2nd seizure in ED, resolved quickly, Ativan 2mg was administered. Patient drowsy afterwards but responding to questions quickly. Dr. Walter states patient to follow up with him quickly but recommends no changes in medication upon ED discharge. Patient states she feels normal, would like to go home. She states HR is tachycardic at baseline. Disposition Discussed With : Jose Walter Doctor Will See Patient In The: Office - Disposition Referrals: Jose Walter MD [Staff Provider] - Disposition: HOME/ ROUTINE Disposition Time: 17:41 Condition: STABLE Instructions: Epilepsy (ED) Forms: [facility] (Frisian), School Excuse - Clinical Impression Clinical Impression: Seizure disorder
[2017-04-19 14:47] LABS: BASO % 0.3 % (0.0-2.0); EOS % 0.2 % (0.0-4.0); HEMATOCRIT 37.6 % (34.0-47.0); LYMPH # 1.4 K/uL (1.0-4.3); LYMPH % 14.4 % (20.0-40.0); MEAN CELL VOLUME 87.2 fL (81.0-99.0); MEAN CORPUSCULAR HEMOGLOBIN 30.8 pg (27.0-31.0); MEAN CORPUSCULAR HGB CONC 35.4 g/dL (33.0-37.0); MEAN PLATELET VOLUME 7.1 fL (7.2-11.7); MONO # 0.6 K/uL (0.0-0.8); MONO % 6.9 % (0.0-10.0); RED CELL DISTRIBUTION WIDTH 12.4 % (11.5-14.5); WHITE BLOOD COUNT 9.4 K/uL (4.8-10.8)
[2017-04-19 15:18] LABS: ALB/GLOB RATIO 1.8 (1.0-2.1); ALKALINE PHOSPHATASE 69 U/L (38-126); ALT/SGPT 27 U/L (9-52); AST/SGOT 26 U/L (14-36); BILIRUBIN,TOTAL 0.8 mg/dL (0.2-1.3); BLOOD UREA NITROGEN 13 mg/dL (7-17); CALCIUM 8.4 mg/dl (8.6-10.4); CARBON DIOXIDE 22 mmol/L (22-30); CHLORIDE 102 mmol/L (98-107); GFR AFRICAN-AMERICAN > 60; GLUCOSE,RANDOM 84 mg/dL (65-105); MAGNESIUM 1.7 mg/dL (1.6-2.3); PHOSPHOROUS 3.1 mg/dL (2.5-4.5); POTASSIUM 3.3 mmol/L (3.6-5.2); SODIUM 135 mmol/L (132-148); TOTAL PROTEIN 6.7 g/dL (6.3-8.3)
--- NOTE | 2017-04-19 15:37 | PCM.RRT ---
<DevengautamJackie - Last Filed: 04/19/17 15:34> SHINGLE SHEARING MACHINE OPERATOR Nurses Assessment - Situation Date: 04/19/17 Time SHINGLE SHEARING MACHINE OPERATOR was called: 13:40 SHINGLE SHEARING MACHINE OPERATOR Responder Arrival Time:: 13:42 SHINGLE SHEARING MACHINE OPERATOR Location:: X-Ray SHINGLE SHEARING MACHINE OPERATOR Reason for Call: Change in Mental Status SHINGLE SHEARING MACHINE OPERATOR Called By: RN - IV IV Inserted during SHINGLE SHEARING MACHINE OPERATOR?: Yes IV Fluids Initiated During SHINGLE SHEARING MACHINE OPERATOR?: NO New IV Insertion Tolerance: Good - Respiratory SHINGLE SHEARING MACHINE OPERATOR Delivery Method: Nasal Cannula @L/min Received Nebulizer Treatments: No Was the Patient Ventilated with Bag/Mask 100% O2?: No Secretions Suctioned?: No Was the Patient Intubated?: No Was the Patient Placed on a Ventilator?: No - Diagnostic Test Ordered EKG: No Chest X-Ray: No CT Scan: No - Vital Signs Vital Signs: Vitals signs unattainable due to active tonic clonic seizure. 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 Patient had two episodes of tonic-clonic seizure without tongue biting for a total of 10 minutes. Patient was put on her side and held by [facility] employees. Vitals could not be taken due to location and because patient was actively seizing. Patient was given 2 grams of Ativan and an additional 1 gram of Ativan. She was then transferred down to the ED. - Neurological Status (Select all that apply): Confused, Lethargic Other (Please specify): Post-Ictal state in emergency room - Respiratory Oxygen Delivery Method: Nasal Cannula @L/min - Constitutional Additional Comments: Exam could not be elicited due to patient's tonic clonic movements. Plan - Assessment of Findings&Treatment Plan 21 year old female. Rapid response called due to tonic clonic seizure Patient was given 2grams of IV ativan then an additional 1 gram. Patient was then transferred down to the ED. <Radha Urias V - Last Filed: 04/19/17 16:02> Attending/Attestation - Attestation I have personally seen and examined this patient.: Yes I have fully participated in the care of the patient.: Yes I have reviewed all pertinent clinical information, including history, physical exam and plan: Yes Notes (Text): SHINGLE SHEARING MACHINE OPERATOR: Hospitalist Responded to witnessed tonic-clonic seizure. 21 year old Female with known hx of seizure disorder, witnessed by several of her colleagues as well as staff in the radiology suite. 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 Patient had two witnessed active tonic-clonic seizures, lasting for few seconds, patient did not hit head, patient was protected at both the neck and the body. IV line inserted. Ativan 2mg IV X1 given (not gram) and Ativan 1mg IV X1 given. Patient was post-ictal following total 3mg IV given. Patient transported to the Emergency Room for further evaluation. Patient per discussion with colleagues did eat lunch today. Patient did not appear well per colleagues. Unable to obtain vital given patient's active seizures, patient placed on nasal cannula on oxygen. General: female, drowsy, post-ictal Heart: s1, s2 present Lungs: good air exchange Neuro: unable to complete given active seizure; + gag reflex. Patient's neurologist is Dr Walter. please note: there is shortage of IV ativan in the hospital.
[2017-04-19 16:41] VITALS: TEMP 98.8
[2017-04-19 17:55] VITALS: BP 98/56; PULSE 122; O2SAT 99
== END 2017-04-19 18:06 | disposition home or self-care (01) ==
LOC: C.ER 13:59
DX: G40.909 Epilepsy, unspecified, not intractable, without status epilepticus (principal)
CPT/HCPCS: 80053; 83735; 84100; 84146; 85025; 96374; 99285; J2060

== ENCOUNTER 2017-04-20 10:32 | Inpatient (IN) | payer BC ==
[2017-04-20 10:32] VITALS: BMI 18.8
[2017-04-20 11:08] LABS: BASO % 0.3 % (0.0-2.0); EOS % 0.6 % (0.0-4.0); HEMATOCRIT 40.3 % (34.0-47.0); LYMPH # 1.3 K/uL (1.0-4.3); MEAN CELL VOLUME 88.6 fL (81.0-99.0); MEAN CORPUSCULAR HEMOGLOBIN 30.8 pg (27.0-31.0); MEAN CORPUSCULAR HGB CONC 34.7 g/dL (33.0-37.0); MEAN PLATELET VOLUME 7.4 fL (7.2-11.7); MONO # 0.5 K/uL (0.0-0.8); MONO % 5.8 % (0.0-10.0); RED CELL DISTRIBUTION WIDTH 12.4 % (11.5-14.5); WHITE BLOOD COUNT 8.3 K/uL (4.8-10.8)
--- NOTE | 2017-04-20 11:22 | C.PDOC ---
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 Patient had a tonic clonic seizure yesterday. Patient has an appointment with DR. Cortez today but spoke to him after the seizure, who suggested to come to the ER. Patient reports she is on Kepra 1500 2x a day and is compliant. Teacher states the seizure today lasted approximately 1 minute. Patient denies recent travel, fever, chills, chest pain , SOB, tongue biting, nausea, vomiting, incontinence, weakness or numbness. Time Seen by Provider: 04/20/17 10:47 Chief Complaint (Nursing): Seizure History Per: Patient History/Exam Limitations: no limitations Number Of Seizures: One Past Medical History Reviewed: Historical Data, Nursing Documentation, Vital Signs Vital Signs: Last Vital Signs Temp 98.2 F 04/24/17 12:00 Pulse 115 H 04/24/17 10:14 Resp 14 04/24/17 10:14 BP 111/69 04/24/17 10:14 Pulse Ox 98 04/24/17 08:14 - Medical History PMH: Seizures Family History: States: No Known Family Hx - Social History Hx Alcohol Use: Yes (occasional) Hx Substance Use: No - Immunization History Hx Tetanus Toxoid Vaccination: Yes Hx Influenza Vaccination: Yes Hx Pneumococcal Vaccination: No Review Of Systems Except As Marked, All Systems Reviewed And Found Negative. Constitutional: Negative for: Fever, Chills Cardiovascular: Negative for: Chest Pain Respiratory: Negative for: Shortness of Breath Gastrointestinal: Negative for: Nausea, Vomiting Genitourinary: Negative for: Incontinence Neurological: Negative for: Weakness, Numbness Physical Exam - Physical Exam Appears: Non-toxic, No Acute Distress Skin: Warm, Dry, No Rash Head: Atraumatic, Normacephalic Oral Mucosa: Moist Tongue: Normal Appearing, No Swelling, No Lesions Throat: Normal, No Erythema, No Exudate, No Drooling Neck: Normal, Normal ROM, Supple Cardiovascular: Rhythm Regular, No Murmur Respiratory: Normal Breath Sounds, No Rales, No Rhonchi, No Stridor, No Wheezing Extremity: Normal ROM, No Swelling Neurological/Psych: Oriented x3, Normal Speech, Normal Motor ED Course And Treatment - Laboratory Results Result Diagrams: 04/24/17 06:23 04/24/17 06:24 O2 Sat by Pulse Oximetry: 97 (RA) Pulse Ox Interpretation: Normal - CT Scan/US CT - Head Other Rad Studies (CT/US): Read By Radiologist, Radiology Report Reviewed CT/US Interpretation: PROCEDURE: CT HEAD WITHOUT CONTRAST. HISTORY: dizziness. COMPARISON: Noncontrast head CT performed 04/06/17. TECHNIQUE: Axial computed tomography images were obtained through the head/brain without intravenous contrast. Radiation dose: Total exam DLP = 996. 60 mGy-cm. This CT exam was performed using one or more of the following dose reduction techniques: Automated exposure control, adjustment of the mA and/or kV according to patient size, and/or use of iterative reconstruction technique. FINDINGS: HEMORRHAGE: No intracranial hemorrhage. BRAIN: No mass effect or edema. Mildly enlarged pituitary gland measures approximately 8 mm. No atrophy or chronic microvascular ischemic changes. VENTRICLES: No hydrocephalus. CALVARIUM: Unremarkable. PARANASAL SINUSES: Unremarkable as visualized. No significant inflammatory changes. MASTOID AIR CELLS: Unremarkable as visualized. No inflammatory changes. OTHER FINDINGS: Streak artifact limits evaluation particularly of the skull-base. IMPRESSION: No acute intracranial pathology identified. Mildly enlarged pituitary gland measures approximately 8 mm. Medical Decision Making Medical Decision Making: IMPRESSION: Seizure PLAN: * CT - Head * CBC * CMP * Urinalysis * Zofran IVP * Ativan IVP NOTE: * Patient has reoccurring seizures while in the ER. * Spoke to DR. Cortez regarding the patient and would like to have patient start on Vimpat 50mg 2x a day. * Vimpat not available * Patient loaded with fosphenytoin - 1 gram, ativan given * Spoke to DR. Bull regarding patient and to admit to telemetry for occurrent seizure. * On re-evaluation, patient is not seizing and denies any pain at the present time. Disposition - Disposition Disposition: HOSPITALIZED Disposition Time: 13:00 Condition: SERIOUS - Clinical Impression Clinical Impression: Tonic-clonic seizure - Scribe Statement The provider has reviewed the documentation as recorded by the Alex Ruff Provider Attestation: All medical record entries made by the Jilibgautam were at my direction and personally dictated by me. I have reviewed the chart and agree that the record accurately reflects my personal performance of the history, physical exam, medical decision making, and the department course for this patient. I have also personally directed, reviewed, and agree with the discharge instructions and disposition.
[2017-04-20 11:25] LABS: ALB/GLOB RATIO 1.3 (1.0-2.1); ALKALINE PHOSPHATASE 74 U/L (38-126); ALT/SGPT 30 U/L (9-52); AST/SGOT 22 U/L (14-36); BILIRUBIN,TOTAL 0.7 mg/dL (0.2-1.3); BLOOD UREA NITROGEN 12 mg/dL (7-17); CALCIUM 8.9 mg/dl (8.6-10.4); CARBON DIOXIDE 23 mmol/L (22-30); CHLORIDE 101 mmol/L (98-107); GFR AFRICAN-AMERICAN > 60; GLUCOSE,RANDOM 86 mg/dL (65-105); POTASSIUM 3.4 mmol/L (3.6-5.2); SODIUM 136 mmol/L (132-148); TOTAL PROTEIN 8.1 g/dL (6.3-8.3)
[2017-04-20 11:31] LABS: RBC URINE 1 /hpf (0-3); URINE BACTERIA OCC (<OCC); URINE BILIRUBIN NEGATIVE (NEGATIVE); URINE BLOOD NEGATIVE (NEGATIVE); URINE COLOR Straw (YELLOW); URINE GLUCOSE (UA) NORMAL (Normal); URINE KETONE TRACE mg/dL (NEGATIVE); URINE LEUKOCYTE ESTERASE 1+ Leu/uL (Negative); URINE PROTEIN NEGATIVE (NEGATIVE); URINE UROBILINOGEN NORMAL mg/dL (0.2-1.0); WBC URINE 6 /hpf (0-5)
[2017-04-20] MEDS ORDERED: WATER IV STA (12:22)
[2017-04-20] MEDS ORDERED: FOSPHENYTOIN IV STA (12:22)
[2017-04-20] MEDS ORDERED: DEXTROSE 5% IV STA (12:22)
[2017-04-20] MEDS ORDERED: Fosphenytoin 1,000 MG in Sodium Chloride 0.9% 50 ML IV STA (12:27)
--- NOTE | 2017-04-20 12:28 | CT ---
PROCEDURE: CT HEAD WITHOUT CONTRAST. HISTORY: dizziness COMPARISON: Noncontrast head CT performed 04/06/17 TECHNIQUE: Axial computed tomography images were obtained through the head/brain without intravenous contrast. Radiation dose: Total exam DLP = 996. 60 mGy-cm. This CT exam was performed using one or more of the following dose reduction techniques: Automated exposure control, adjustment of the mA and/or kV according to patient size, and/or use of iterative reconstruction technique. FINDINGS: HEMORRHAGE: No intracranial hemorrhage. BRAIN: No mass effect or edema. Mildly enlarged pituitary gland measures approximately 8 mm. No atrophy or chronic microvascular ischemic changes. VENTRICLES: No hydrocephalus. CALVARIUM: Unremarkable. PARANASAL SINUSES: Unremarkable as visualized. No significant inflammatory changes. MASTOID AIR CELLS: Unremarkable as visualized. No inflammatory changes. OTHER FINDINGS: Streak artifact limits evaluation particularly of the skull-base. IMPRESSION: No acute intracranial pathology identified. Mildly enlarged pituitary gland measures approximately 8 mm.
[2017-04-20] MEDS ORDERED: Potassium Chloride 20 mEq ER Tab PO ONE (18:00)
--- NOTE | 2017-04-20 22:42 | CP.PCM.HP ---
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 Patient had a tonic clonic seizure yesterday. Patient has an appointment with DR. Cortez today but spoke to him after the seizure, who suggested to come to the ER. Patient reports she is on Kepra 1500 2x a day and is compliant. Teacher states the seizure today lasted approximately 1 minute. Patient denies recent travel, fever, chills, chest pain , SOB, tongue biting, nausea, vomiting, incontinence, weakness or numbness. Past Patient History - Infectious Disease Hx of Infectious Diseases: None - Tetanus Immunizations Tetanus Immunization: Unknown - Past Medical History & Family History Past Medical History?: Yes - Past Social History Smoking Status: Never Smoked - CARDIAC Hx Cardiac Disorders: No - PULMONARY Hx Respiratory Disorders: No - NEUROLOGICAL Hx Seizures: Yes - HEENT Hx HEENT Problems: No - RENAL Hx Chronic Kidney Disease: No - ENDOCRINE/METABOLIC Hx Endocrine Disorders: No - HEMATOLOGICAL/ONCOLOGICAL Hx Blood Disorders: No - INTEGUMENTARY Hx Dermatological Problems: No - MUSCULOSKELETAL/RHEUMATOLOGICAL Hx Falls: Yes - GASTROINTESTINAL Hx Gastrointestinal Disorders: No - GENITOURINARY/GYNECOLOGICAL Hx Genitourinary Disorders: No - PSYCHIATRIC Hx Substance Use: No - SURGICAL HISTORY Hx Surgeries: No - ANESTHESIA Hx Anesthesia: No Hx Anesthesia Reactions: No Meds Allergies/Adverse Reactions: Allergies Allergy/AdvReac Type Severity Reaction Status Date / Time banana Allergy ANAPHYLAXIS Verified 04/20/17 10:37 Results - Vital Signs Recent Vital Signs: Last Vital Signs Temp 98.2 F 04/20/17 16:16 Pulse 93 H 04/20/17 16:16 Resp 20 04/20/17 16:16 BP 100/61 04/20/17 16:16 Pulse Ox 97 04/20/17 16:16 - Labs Result Diagrams: 04/20/17 11:03 04/20/17 11:03 Labs: Laboratory Results - last 24 hr 04/20/17 04/20/17 04/20/17 11:03 11:03 11:17 WBC 8.3 RBC 4.54 Hgb 14.0 Hct 40.3 MCV 88.6 MCH 30.8 MCHC 34.7 RDW 12.4 Plt Count 325 MPV 7.4 Neut % (Auto) 77.3 H Lymph % (Auto) 16.0 L [place] % (Auto) 5.8 Eos % (Auto) 0.6 Baso % (Auto) 0.3 Neut # 6.4 Lymph # 1.3 [place] # 0.5 Eos # 0.0 Baso # 0.0 Sodium 136 Potassium 3.4 L Chloride 101 Carbon Dioxide 23 Anion Gap 16 BUN 12 Creatinine 0.6 L Est GFR ( Amer) > 60 Est GFR (Non-Af Amer) > 60 Random Glucose 86 Calcium 8.9 Total Bilirubin 0.7 AST 22 ALT 30 Alkaline Phosphatase 74 Total Protein 8.1 Albumin 4.5 Globulin 3.6 Albumin/Globulin Ratio 1.3 Urine Color Straw Urine Clarity Clear Urine pH 6.0 Ur Specific [place] 1.006 Urine Protein Negative Urine Glucose (UA) Normal Urine Ketones Trace Urine Blood Negative Urine Nitrate Negative Urine Bilirubin Negative Urine Urobilinogen Normal Ur Leukocyte Esterase 1+ H Urine WBC (Auto) 6 H Urine RBC (Auto) 1 Ur Squamous Epith Cells 2 Urine Bacteria Occ H
--- NOTE | 2017-04-21 07:19 | CP.PCM.CON ---
History of Present Illness - History of Present Illness History of Present Illness: CONSULT DICTATED REC SEIZURES / ?? PSUEDO SEIZURES WITH GTC Sz DUAL AEDs CHECK MRI BRAN WIT OUMOU IF STABLE FOR 24 HRS DC HOME AND FOLLOW UP OP I WILL REPEAT AMB VIDEO EEG Past Patient History - Infectious Disease Hx of Infectious Diseases: None - Tetanus Immunizations Tetanus Immunization: Unknown - Past Medical History & Family History Past Medical History?: Yes - Past Social History Smoking Status: Never Smoked - CARDIAC Hx Cardiac Disorders: No - PULMONARY Hx Respiratory Disorders: No - NEUROLOGICAL Hx Seizures: Yes - HEENT Hx HEENT Problems: No - RENAL Hx Chronic Kidney Disease: No - ENDOCRINE/METABOLIC Hx Endocrine Disorders: No - HEMATOLOGICAL/ONCOLOGICAL Hx Blood Disorders: No - INTEGUMENTARY Hx Dermatological Problems: No - MUSCULOSKELETAL/RHEUMATOLOGICAL Hx Falls: Yes - GASTROINTESTINAL Hx Gastrointestinal Disorders: No - GENITOURINARY/GYNECOLOGICAL Hx Genitourinary Disorders: No - PSYCHIATRIC Hx Substance Use: No - SURGICAL HISTORY Hx Surgeries: No - ANESTHESIA Hx Anesthesia: No Hx Anesthesia Reactions: No Meds Allergies/Adverse Reactions: Allergies Allergy/AdvReac Type Severity Reaction Status Date / Time banana Allergy ANAPHYLAXIS Verified 04/20/17 10:37 - Medications Medications: Current Medications Acetaminophen (Tylenol 325mg Tab) 650 mg PO Q6 PRN PRN Reason: Headache Levetiracetam (Keppra) 1,500 mg PO BID [facility] Last Admin: 04/20/17 17:33 Dose: 1,500 mg Lorazepam (Ativan) 1 mg IVP Q6 PRN PRN Reason: Anxiety Ondansetron HCl (Zofran Inj) 4 mg IVP Q8 PRN PRN Reason: Nausea/Vomiting Phenytoin Sodium (Dilantin) 100 mg PO TID [facility] Last Admin: 04/20/17 17:33 Dose: 100 mg Results - Vital Signs Recent Vital Signs: Last Vital Signs Temp 98.2 F 04/21/17 05:58 Pulse 97 H 04/21/17 05:58 Resp 20 04/21/17 05:58 BP 95/58 L 04/21/17 05:58 Pulse Ox 92 L 04/21/17 05:58 - Labs Result Diagrams: 04/20/17 11:03 04/20/17 11:03 Labs: Laboratory Results - last 24 hr 11/16/17 11/16/17 11/16/17 11:03 11:03 11:17 WBC 8.3 RBC 4.54 Hgb 14.0 Hct 40.3 MCV 88.6 MCH 30.8 MCHC 34.7 RDW 12.4 Plt Count 325 MPV 7.4 Neut % (Auto) 77.3 H Lymph % (Auto) 16.0 L [place] % (Auto) 5.8 Eos % (Auto) 0.6 Baso % (Auto) 0.3 Neut # 6.4 Lymph # 1.3 [place] # 0.5 Eos # 0.0 Baso # 0.0 Sodium 136 Potassium 3.4 L Chloride 101 Carbon Dioxide 23 Anion Gap 16 BUN 12 Creatinine 0.6 L Est GFR ( Amer) > 60 Est GFR (Non-Af Amer) > 60 Random Glucose 86 Calcium 8.9 Total Bilirubin 0.7 AST 22 ALT 30 Alkaline Phosphatase 74 Total Protein 8.1 Albumin 4.5 Globulin 3.6 Albumin/Globulin Ratio 1.3 Urine Color Straw Urine Clarity Clear Urine pH 6.0 Ur Specific [place] 1.006 Urine Protein Negative Urine Glucose (UA) Normal Urine Ketones Trace Urine Blood Negative Urine Nitrate Negative Urine Bilirubin Negative Urine Urobilinogen Normal Ur Leukocyte Esterase 1+ H Urine WBC (Auto) 6 H Urine RBC (Auto) 1 Ur Squamous Epith Cells 2 Urine Bacteria Occ H
--- NOTE | 2017-04-21 08:30 | CON ---
REASON FOR THE CONSULTATION: Seizures. CHIEF COMPLAINT: The patient was brought in from her school with a history of seizures yesterday. The patient was brought in to the [facility] and she had another seizures while she was taking CAT scan. These seizures had been witnessed. The patient has seizure activities. Following that the patient does postictal, lethargicness and sleepy. HISTORY OF PRESENT ILLNESS: Ms. Beth Hendrix is a 21-year-old right-handed female, who is known to me for more than a year or so for her seizure episode and asymmetric temporal lobe, being on Keppra, doing well. Because of the seizures, she was admitted a few months ago to [facility], there she did have continuous video monitoring. At that point, the patient was given Vimpat and discontinued both drugs at same time. Following this, the patient also evaluated by psychiatrist and he suggest to put her on SSRI. However, the patient refused to take that medication. Almost a few weeks, the patient was off Keppra and she developed recurrent seizure episodes, been admitted in the [facility]. The patient was titrated back Keppra dose to therapeutic level and she was discharged home. Since then, the patient visited the emergency room twice for the same reason. At this time, the patient has Ativan, on top that she did have seizure episode. The patient was given second antiepileptic drug at this point. The patient was loaded with Dilantin and Dilantin is given with the Keppra at present. At present, the patient denies any complaints. More awake, more alert, cognitively intact. PAST MEDICAL HISTORY: POT syndrome and seizures. PERSONAL HISTORY: Denied smoking. History of social alcohol use. ALLERGIES: ALLERGIES TO BANANA. REVIEW OF SYSTEMS: Twelve-point review of systems had been reviewed. The patient does have recurrent seizures from neurology. MEDICATIONS: Keppra, Dilantin, Zofran. PHYSICAL EXAMINATION: VITAL SIGNS: Blood pressure 95/58, mean arterial pressure of 70, respiratory rate 18, temperature 98.2, pulse rate is 98. NECK: Supple. No carotid bruit. HEART: Sounds are regular. CHEST: Fair air entry. EXTREMITIES: No edema in legs. NEUROLOGICAL: Mental status examination: She is awake, alert, oriented to person, place and time. Speech is clear. Naming, repetition, fluency, comprehension all within normal. The patient does show retrograde amnesia from the seizures. Cranial nerve examination: Visual field intact. Pupils reactive to light. Extraocular movement normal. No nystagmus. No facial sensory deficit. No facial asymmetry. Hearing is normal. Tongue is midline. Good gag. Motor examination: On an outstretched hand with eyes closed, no drift noted. Power is symmetric on either side. Deep tendon reflexes, biceps, brachialis, triceps 2+ on either side. Plantars are downgoing. Sensory examination grossly intact. Gait is normal. CONCLUSION: Upon reviewing her history and neurological examination, Ms. Beth Hendrix is presenting with recurrent seizure episodes with on antiepileptic drugs which she was doing well before. The recurrent seizures, which is a short period of time and recovered back to her normal mental status. When she was at home during the weekend, she did not have seizure episodes with her parents. When she come back to her school, she has been having recurrent seizures. However, the nature of the seizures which may be nonepileptic from seizures (possible psychogenic origin). However, the patient had been witnessed with clinical generalized tonic-clonic seizures. RECOMMENADATION: 1. I would like to repeat MRI of the brain with Gadolinium to assess her mesial temporal lobe. 2. Let she continue Keppra and Dilantin for now. If she is stable for 24-hour period, the patient can be discharged and should have followup visit with me as outpatient. 3. The patient's Keppra level and Dilantin level to be checked. Jose Walter MD
--- NOTE | 2017-04-21 13:09 | MRI ---
PROCEDURE: MRI BRAIN WITHOUT CONTRAST HISTORY: Recurrent Seizures, Asess medial temporal sclerosi COMPARISON: Comparison is made to the previous study dated 11/22/2016 TECHNIQUE: Multiplanar, multisequence MR images of the brain were obtained without intravenous contrast enhancement. FINDINGS: HEMORRHAGE: None DWI: No evidence of an acute or early subacute infarction. BRAIN PARENCHYMA: There is a slight asymmetry in the size of the hypo compass which appears slightly smaller on the right with slight increase in T2 signal and slight widening of the adjacent sulci. No atrophy or chronic microvascular ischemic changes. VENTRICLES: Unremarkable. No hydrocephalus. CRANIUM: Unremarkable. ORBITS: Grossly unremarkable. PARANASAL SINUSES/MASTOIDS: Clear VASCULAR SYSTEM: Skull base flow voids intact. OTHER FINDINGS: None. IMPRESSION: Slight asymmetry in the size of the hippocampus which appears smaller in the right associated with slight increase T2 signal and slight widening of the adjacent sulci. 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 Otherwise grossly unremarkable MRI of the brain without contrast.
--- NOTE | 2017-04-21 14:02 | CP.CCUPN ---
CCU Subjective - Physician Review Subjective (Free Text): Patient is a 21 y/o female with pmhx of seizures who was admitted to [facility] after having a seizure in class despite being compliant with her Keppra. Today patient had another seizure on the way to MRI. Patient was given a total of 10mg of Ativan to stop the seizing. Patient transferred to ICU for closer monitoring. Patient denies fevers, nausea, vomiting, pain, incontinence of urine or stool. Patient very drowsy from the Keppra. 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 Denies drug use, tobacco use, alcohol use. Patient drinks 1-2 cups of coffee per day. Allergies: Banana- throat swells up and closes 04/21/17 14:03 04/21/17 14:05 CCU Objective - Vital Signs / Intake & Output Vital Signs (Last 4 hours): Vital Signs Temp Pulse Resp BP Pulse Ox 04/21/17 12:25 98.1 F 94 H 23 105/73 97 Intake and Output (Last 8hrs): Intake & Output 04/20/17 04/21/17 04/21/17 22:59 06:59 14:59 Intake Total 150 Output Total 300 Balance -150 Intake: Oral 150 Output: Urine 300 Urine, Voided 300 Other: # Voids Urine, Voided 1 # Bowel Movements 0 - Physical Exam Head: Positive for: Atraumatic, Normocephalic Pupils: Positive for: PERRL Extroacular Muscles: Positive for: EOMI Conjunctiva: Positive for: Normal Mouth: Positive for: Moist Mucous Membranes Neck: Positive for: Normal Range of Motion Respiratory/Chest: Positive for: Clear to Auscultation, Good Air Exchange. Negative for: Accessory Muscle Use Cardiovascular: Positive for: Normal S1, S2, Tachycardic Abdomen: Negative for: Tenderness, Distention Upper Extremity: Positive for: Normal Inspection. Negative for: Edema Lower Extremity: Positive for: Normal Inspection. Negative for: Edema Skin: Positive for: Warm, Normal Color Psychiatric: Positive for: Alert, Oriented x 3 - Medications Active Medications: Active Medications Generic Name Dose Route Start Last Admin Trade Name Freq PRN Reason Stop Dose Admin Acetaminophen 650 mg 04/20/17 16:05 Tylenol 325mg Tab PO Q6 PRN Headache Levetiracetam 1,500 mg/ 115 mls @ 420 mls/hr 04/21/17 13:45 Dextrose IVPB Q12H ALEJANDRO Lorazepam 1 mg 04/20/17 16:01 04/21/17 10:14 Ativan IVP 1 mg Q6 PRN Administration Anxiety Ondansetron HCl 4 mg 04/20/17 16:04 Zofran Inj IVP Q8 PRN Nausea/Vomiting Phenytoin Sodium 100 mg 04/20/17 18:00 04/21/17 09:58 Dilantin PO 100 mg TID ALEJANDRO Administration - Patient Studies Fingerstick Blood Sugar Results: 89 Review of Systems - Constitutional Constitutional: absent: Fever, Chills, Sweats, Weakness - Cardiovascular Cardiovascular: absent: Chest Pain, Dyspnea, Leg Edema, Palpitations - Respiratory Respiratory: absent: Cough, Wheezing - Gastrointestinal Gastrointestinal: absent: Abdominal Pain, Constipation, Diarrhea, Nausea, Vomiting - Genitourinary Genitourinary: absent: Difficulty Urinating - Hematologic/Lymphatic Hematologic: absent: Easy Bleeding, Easy Bruising Critical Care Progress Note - Nutrition Nutrition: Nutrition Category Date Time Status Regular Diet [DIET] Diets 04/20/17 Dinner Active Assessment/Plan - Assessment and Plan (Free Text) Assessment: 21 yo F w/ PMHX of recurrent seizures and OUMOU. Pt had witnessed seizure this morning before getting MRI. Patient was transferred to the ICU for further monitoring. Neuro: recurrent witnessed seizures, hx seizures - Brain MRI without contrast (04/21): slight asymmetry in size of hippocampus which appears smaller in the right associated with slight increase T2 signal and slight widening of the adjacent sulci. 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 -Head CT (04/20): no acute intracranial pathology identified. Mildly enlarged pituitary gland measures approximately 8mm - Dr. Walter consulted, help appreciated - Keppra loading dose given : 1500mg - Keppra 1000mg BID - Phenytoin 100 mg po TID - Keppra level drawn - 10 mg Ativan given today - seizure precautions -f/u EEG -f/u RPR, CRP, HIV, HSV, HTLV Cardio: no acute issues -propranolol 20mg BID Pulm: no acute issues Nephro: hypokalemia -potassium replaced GI: no acute issues : 1+ leuk esterase, 6 wbc, occasional urine bacteria PPX: - SCDs
[2017-04-21 15:00] LABS: ALB/GLOB RATIO 1.7 (1.0-2.1); ALKALINE PHOSPHATASE 78 U/L (38-126); ALT/SGPT 32 U/L (9-52); AST/SGOT 29 U/L (14-36); BILIRUBIN,TOTAL 1.4 mg/dL (0.2-1.3); BLOOD UREA NITROGEN 13 mg/dL (7-17); CALCIUM 9.4 mg/dl (8.6-10.4); CARBON DIOXIDE 25 mmol/L (22-30); CHLORIDE 99 mmol/L (98-107); GFR AFRICAN-AMERICAN > 60; GLUCOSE,RANDOM 88 mg/dL (65-105); MAGNESIUM 1.9 mg/dL (1.6-2.3); PHOSPHOROUS 3.2 mg/dL (2.5-4.5); POTASSIUM 3.5 mmol/L (3.6-5.2); SODIUM 138 mmol/L (132-148); TOTAL PROTEIN 7.9 g/dL (6.3-8.3)
[2017-04-21] MEDS: Sodium Chloride 0.9% 1,000 ML IV SCH (15:10)
--- NOTE | 2017-04-21 18:45 | CT ---
PROCEDURE: CT HEAD WITHOUT CONTRAST. HISTORY: post fall COMPARISON: Comparison is made to the previous study dated 04/20/2017 TECHNIQUE: Axial computed tomography images were obtained through the head/brain without intravenous contrast. Radiation dose: Total exam DLP = 838.59 mGy-cm. This CT exam was performed using one or more of the following dose reduction techniques: Automated exposure control, adjustment of the mA and/or kV according to patient size, and/or use of iterative reconstruction technique. FINDINGS: HEMORRHAGE: No intracranial hemorrhage. BRAIN: No mass effect or edema. No atrophy or chronic microvascular ischemic changes. VENTRICLES: Unremarkable. No hydrocephalus. CALVARIUM: Unremarkable. PARANASAL SINUSES: Unremarkable as visualized. No significant inflammatory changes. MASTOID AIR CELLS: Unremarkable as visualized. No inflammatory changes. OTHER FINDINGS: None. IMPRESSION: No evidence of acute intracranial hemorrhage intracranial collection mass effect or midline shift.
--- NOTE | 2017-04-21 22:16 | PCM.RRT ---
SCHOOL COUNSELLOR Nurses Assessment - Situation Date: 04/21/17 Time SCHOOL COUNSELLOR was called: 18:09 SCHOOL COUNSELLOR Responder Arrival Time:: 18:10 SCHOOL COUNSELLOR Location:: ICU Room Number: 12 SCHOOL COUNSELLOR Called By: RN - IV IV Inserted during SCHOOL COUNSELLOR?: Yes New IV Insertion Tolerance: Excellent - Diagnostic Test Ordered EKG: No Chest X-Ray: No CT Scan: No CPR started during SCHOOL COUNSELLOR?: No - [place] Coma Scale Coma Scale Eye Opening: Spontaneous Coma Scale Motor: Obeys Commands Movement Coma Scale Verbal: Oriented Coma Scale Total: 15 - Time SCHOOL COUNSELLOR Ended Time SCHOOL COUNSELLOR Ended: 18:12 - Recommendations 5) SCHOOL COUNSELLOR Level of Care Recommendations: Remain in current setting Notifications: Attending Physician
--- NOTE | 2017-04-21 22:16 | PCM.RRT ---
SHINGLE CUTTER Nurses Assessment - Situation Date: 04/21/17 SHINGLE CUTTER Location:: Nuclear Medicine SHINGLE CUTTER Reason for Call: Change in Mental Status SHINGLE CUTTER Called By: Other Disciplines - IV IV Inserted during SHINGLE CUTTER?: No New IV Insertion Tolerance: Good - Respiratory SHINGLE CUTTER Delivery Method: Nasal Cannula @L/min Received Nebulizer Treatments: No Was the Patient Ventilated with Bag/Mask 100% O2?: No Secretions Suctioned?: No Was the Patient Intubated?: No Was the Patient Placed on a Ventilator?: No - Diagnostic Test Ordered EKG: No Chest X-Ray: No CT Scan: No Other Diagnostic Test Ordered: patient was about to have MRI by neurology, when seizure I.Reason for SHINGLE CUTTER - A) Acute Change in Patient: (Select all that apply): Staff member or family is worried about patient, Acute change in mental status - Neurological Status (Select all that apply): Alert, Responsive, Oriented, Follows Commands - Respiratory Oxygen Delivery Method: Nasal Cannula @L/min - Constitutional Appears: Non-toxic, No Acute Distress - Head Head Exam: NORMAL INSPECTION - Eyes Eye Exam: EOMI - Respiratory Exam Respiratory Exam: Clear to Ausculation Bilateral, NORMAL BREATHING PATTERN - Cardiovascular Exam Cardiovascular Exam: Tachycardia, +S1, +S2 - GI/Abdominal Exam GI & Abdominal Exam: Soft, Normal Bowel Sounds - Extremities Exam Extremities Exam: Full ROM Plan - Assessment of Findings&Treatment Plan SHINGLE CUTTER called on 04/21 for witnessed seizure by aircraft ordnance technician while patient was in MRI machine in the morning. Patient was admitted to the hospital for recurrent seizure disorder, undergoing workup. Patient taken out from MRI machine. Prior to coming to MRI trailer, patient was premedicated with Ativan 2mgIV, patient required additional Ativan 8mg IV total for 4 tonic-clonic seizures, last few seconds each episodes. Patient after last tonic clonic seizure, came to, crying, denies pain. When asked about who she wants to be informed, she gave the name of her sister who is 28 years old, name written in the chart, who can inform her dad. Patient with a hx of known hx seizure disorder, inpatient for refractory seizure activity. Patient seen by Dr. Walter. Neurology informed at time of rapid, recommending for patient to complete MRI. During the course of patient's recurrent seizure, there was a concern that patient may need propofol/intubation. Anesthesia did come by to assess when she had her fourth seizure episode. Patient insisted to complete the MRI, that she wants the best picture possible. My colleague, Dr Parsons, spoke with ICU, in regards to the patient given the frequency of her seizures. ICU accepted the patient to the unit. At time of SHINGLE CUTTER: General; young girl, tonic clonic seizure (head jerking), construction equipment technician guarding her neck another, no tongue biting or laceration, eyes rolled back Cardio: s1,s2, tachycardia Heart: S1, S2, tachycardia Abdomen: soft, nt/nd + BS X4 After resolution of rapid (after 4th seizure). Patiet able to speak in south su[place]ese, propped herself on the transporter bed, asking to use the bathroom because she needed to urinated. passive gricel intact around the neck. At the SHINGLE CUTTER, aircraft ordnance technician, Boom, SORAIDA nurse, Kusum Barger, RN crusher supervisor, myself , colleague, Dr Parsons hospitalist, and residents PGY-1 Raj Obrien, and Shaniqua Holcomb. Patient has peripheral line over left upper extremity.
--- NOTE | 2017-04-21 23:38 | CP.PCM.PN ---
Subjective - Date & Time of Evaluation Date of Evaluation: 04/21/17 Time of Evaluation: 18:00 - Subjective Subjective: Patient is awake and responsive and no further seizure activity noted during the daytime Objective - Vital Signs/Intake and Output Vital Signs (last 24 hours): Temp Pulse Resp BP Pulse Ox 98.3 F 89 14 85/50 L 96 04/21/17 20:00 04/21/17 22:17 04/21/17 22:17 04/21/17 22:17 04/21/17 22:04 Intake and Output: 04/21/17 04/22/17 18:59 06:59 Intake Total 900 300 Output Total 300 Balance 600 300 - Medications Medications: Current Medications Acetaminophen (Tylenol 325mg Tab) 650 mg PO Q6 PRN PRN Reason: Headache Heparin Sodium (Porcine) (Heparin) 5,000 units SC Q8H [facility] Last Admin: 04/21/17 18:53 Dose: 5,000 units Sodium Chloride (Sodium Chloride 0.9%) 1,000 mls @ 100 mls/hr IV .Q10H [facility] Last Admin: 04/21/17 15:10 Dose: 100 mls/hr Levetiracetam 1,500 mg/ (Dextrose) 265 mls @ 220 mls/hr IVPB Q12H ALEJANDRO Lorazepam (Ativan) 1 mg IVP Q6 PRN PRN Reason: Anxiety Last Admin: 04/21/17 10:14 Dose: 1 mg Ondansetron HCl (Zofran Inj) 4 mg IVP Q8 PRN PRN Reason: Nausea/Vomiting Phenytoin Sodium (Dilantin) 100 mg PO TID [facility] Last Admin: 04/21/17 18:50 Dose: 100 mg - Labs Labs: 04/20/17 11:03 04/21/17 14:10
[2017-04-22] MEDS: DEXTROSE 5% IVPB SCH ×2 (01:16→14:31)
[2017-04-22] MEDS: LEVETIRACETAM IVPB SCH ×2 (01:16→14:31)
[2017-04-22] MEDS: WATER IVPB SCH ×2 (01:16→14:31)
[2017-04-22] MEDS: Sodium Chloride 0.9% 1,000 ML IV SCH ×3 (01:20→20:00)
[2017-04-22 06:37] LABS: BASO % 0.5 % (0.0-2.0); EOS # 0.2 K/uL (0.0-0.7); HEMATOCRIT 34.7 % (34.0-47.0); LYMPH # 1.8 K/uL (1.0-4.3); LYMPH % 34.2 % (20.0-40.0); MEAN CELL VOLUME 88.3 fL (81.0-99.0); MEAN CORPUSCULAR HEMOGLOBIN 31.1 pg (27.0-31.0); MEAN CORPUSCULAR HGB CONC 35.2 g/dL (33.0-37.0); MEAN PLATELET VOLUME 7.6 fL (7.2-11.7); MONO # 0.5 K/uL (0.0-0.8); MONO % 9.3 % (0.0-10.0); NRBC % 0.1 % (0.0-2.0); RED CELL DISTRIBUTION WIDTH 12.3 % (11.5-14.5); WHITE BLOOD COUNT 5.2 K/uL (4.8-10.8)
[2017-04-22 07:29] LABS: ALB/GLOB RATIO 1.1 (1.0-2.1); ALKALINE PHOSPHATASE 55 U/L (38-126); ALT/SGPT 28 U/L (9-52); AST/SGOT 25 U/L (14-36); BILIRUBIN,TOTAL 0.5 mg/dL (0.2-1.3); BLOOD UREA NITROGEN 12 mg/dL (7-17); CALCIUM 8.1 mg/dl (8.6-10.4); CARBON DIOXIDE 23 mmol/L (22-30); CHLORIDE 105 mmol/L (98-107); GFR AFRICAN-AMERICAN > 60; GLUCOSE,RANDOM 61 mg/dL (65-105); POTASSIUM 3.7 mmol/L (3.6-5.2); SODIUM 136 mmol/L (132-148); TOTAL PROTEIN 6.4 g/dL (6.3-8.3)
[2017-04-22 07:29] LABS: MAGNESIUM 1.8 mg/dL (1.6-2.3); PHOSPHOROUS 3.5 mg/dL (2.5-4.5)
--- NOTE | 2017-04-22 10:36 | CP.CCUPN ---
CCU Subjective - Physician Review Events Since Last Encounter (Free Text): 04/22/17 10:36 Patient is a 21-year-old female admitted to the hospital with recurrent episodes of seizure activities. Not clear whether it is a real seizures. But at this morning again she had one episode of seizure activity, and at the time patient received a 2 mg Ativan. Currently patient is somewhat sleeping. Currently responding well. Moving all 4 activities. Appropriately answering questions. Examination: Vital signs stable. Vital signs reviewed No neck vein distention noted Chest good air entry bilaterally, no wheezing or rales noted CVS regular heart sound, no murmur noted Abdomen soft, nontender. 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 Patient had a MRI, showing evidence of some abnormal scar tissues Assessment and recommendation: 21-year-old female admitted with a seizure activities. Currently on Keppra, Dilantin. Neurology follow-up Continue to monitor one-to-one. Repeat labs. Will follow the patient CCU Objective - Vital Signs / Intake & Output Vital Signs (Last 4 hours): Vital Signs Pulse Resp BP Pulse Ox 04/22/17 07:22 114 H 16 87/57 L 96 04/22/17 07:15 113 H 23 74/39 L 97 04/22/17 07:00 89 18 91/56 L 96 Intake and Output (Last 8hrs): Intake & Output 04/21/17 04/22/17 04/22/17 22:59 06:59 14:59 Intake Total 1050 950 100 Output Total 200 Balance 850 950 100 Weight 109 lb 4.8 oz Intake: Intake, IV Amount 650 950 100 Left Forearm 650 950 100 Oral 400 Output: Urine 200 Urine, Voided 200 - Physical Exam Head: Positive for: Atraumatic, Normocephalic Pupils: Positive for: PERRL Extroacular Muscles: Positive for: EOMI Conjunctiva: Positive for: Normal Mouth: Positive for: Moist Mucous Membranes Neck: Positive for: Normal Range of Motion Respiratory/Chest: Positive for: Clear to Auscultation, Good Air Exchange. Negative for: Accessory Muscle Use Cardiovascular: Positive for: Normal S1, S2, Tachycardic Abdomen: Negative for: Tenderness, Distention Upper Extremity: Positive for: Normal Inspection. Negative for: Edema Lower Extremity: Positive for: Normal Inspection. Negative for: Edema Skin: Positive for: Warm, Normal Color Psychiatric: Positive for: Alert, Oriented x 3 - Medications Active Medications: Active Medications Generic Name Dose Route Start Last Admin Trade Name Freq PRN Reason Stop Dose Admin Acetaminophen 650 mg 04/20/17 16:05 Tylenol 325mg Tab PO Q6 PRN Headache Heparin Sodium (Porcine) 5,000 units 04/21/17 18:00 04/22/17 01:16 Heparin SC 5,000 units Q8H ALEJANDRO Administration Sodium Chloride 1,000 mls @ 100 mls/hr 04/21/17 14:00 04/22/17 01:20 Sodium Chloride 0.9% IV 100 mls/hr .Q10H ALEJANDRO Administration Levetiracetam 1,500 mg/ 265 mls @ 220 mls/hr 04/22/17 01:45 04/22/17 01:16 Dextrose IVPB 220 mls/hr Q12H ALEJANDRO Administration Lorazepam 1 mg 04/20/17 16:01 04/22/17 08:38 Ativan IVP 1 mg Q6 PRN Administration Anxiety Ondansetron HCl 4 mg 04/20/17 16:04 Zofran Inj IVP Q8 PRN Nausea/Vomiting Phenytoin Sodium 100 mg 04/20/17 18:00 04/21/17 18:50 Dilantin PO 100 mg TID ALEJANDRO Administration - Patient Studies Lab Studies: Lab Studies 04/22/17 04/22/17 04/22/17 Range/Units 06:30 06:27 06:27 WBC 5.2 (4.8-10.8) K/uL RBC 3.92 (3.80-5.20) Mil/uL Hgb 12.2 (11.0-16.0) g/dL Hct 34.7 (34.0-47.0) % MCV 88.3 (81.0-99.0) fL MCH 31.1 H (27.0-31.0) pg MCHC 35.2 (33.0-37.0) g/dL RDW 12.3 (11.5-14.5) % Plt Count 270 (130-400) K/uL MPV 7.6 (7.2-11.7) fL Neut % (Auto) 53.0 (50.0-75.0) % Lymph % (Auto) 34.2 (20.0-40.0) % [place] % (Auto) 9.3 (0.0-10.0) % Eos % (Auto) 3.0 (0.0-4.0) % Baso % (Auto) 0.5 (0.0-2.0) % Neut # 2.8 (1.8-7.0) K/uL Lymph # 1.8 (1.0-4.3) K/uL [place] # 0.5 (0.0-0.8) K/uL Eos # 0.2 (0.0-0.7) K/uL Baso # 0.0 (0.0-0.2) K/uL ESR (0-20) mm/hr Sodium 136 (132-148) mmol/L Potassium 3.7 (3.6-5.2) mmol/L Chloride 105 (98-107) mmol/L Carbon Dioxide 23 (22-30) mmol/L Anion Gap 12 (10-20) BUN 12 (7-17) mg/dL Creatinine 0.6 L (0.7-1.2) mg/dL Est GFR ( Amer) > 60 Est GFR (Non-Af Amer) > 60 Random Glucose 61 L (65-105) mg/dL Lactic Acid (0.7-2.1) mmol/L Calcium 8.1 L (8.6-10.4) mg/dl Phosphorus 3.5 (2.5-4.5) mg/dL Magnesium 1.8 (1.6-2.3) mg/dL Total Bilirubin 0.5 (0.2-1.3) mg/dL AST 25 (14-36) U/L ALT 28 (9-52) U/L Alkaline Phosphatase 55 (38-126) U/L Total Creatine Kinase (30-135) U/L C-React Prot High Sens (1.00-3.00) mg/L Total Protein 6.4 (6.3-8.3) g/dL Albumin 3.3 L D (3.5-5.0) g/dL Globulin 3.1 (2.2-3.9) gm/dL Albumin/Globulin Ratio 1.1 (1.0-2.1) RPR (NONREACTIVE) HIV 1&2 Antibody Screen (NEGATIVE) 11/04/21/17 04/21/17 Range/Units 18:19 18:19 14:20 WBC (4.8-10.8) K/uL RBC (3.80-5.20) Mil/uL Hgb (11.0-16.0) g/dL Hct (34.0-47.0) % MCV (81.0-99.0) fL MCH (27.0-31.0) pg MCHC (33.0-37.0) g/dL RDW (11.5-14.5) % Plt Count (130-400) K/uL MPV (7.2-11.7) fL Neut % (Auto) (50.0-75.0) % Lymph % (Auto) (20.0-40.0) % [place] % (Auto) (0.0-10.0) % Eos % (Auto) (0.0-4.0) % Baso % (Auto) (0.0-2.0) % Neut # (1.8-7.0) K/uL Lymph # (1.0-4.3) K/uL [place] # (0.0-0.8) K/uL Eos # (0.0-0.7) K/uL Baso # (0.0-0.2) K/uL ESR (0-20) mm/hr Sodium (132-148) mmol/L Potassium (3.6-5.2) mmol/L Chloride (98-107) mmol/L Carbon Dioxide (22-30) mmol/L Anion Gap (10-20) BUN (7-17) mg/dL Creatinine (0.7-1.2) mg/dL Est GFR ( Amer) Est GFR (Non-Af Amer) Random Glucose (65-105) mg/dL Lactic Acid 0.9 0.7 (0.7-2.1) mmol/L Calcium (8.6-10.4) mg/dl Phosphorus (2.5-4.5) mg/dL Magnesium (1.6-2.3) mg/dL Total Bilirubin (0.2-1.3) mg/dL AST (14-36) U/L ALT (9-52) U/L Alkaline Phosphatase (38-126) U/L Total Creatine Kinase 51 (30-135) U/L C-React Prot High Sens (1.00-3.00) mg/L Total Protein (6.3-8.3) g/dL Albumin (3.5-5.0) g/dL Globulin (2.2-3.9) gm/dL Albumin/Globulin Ratio (1.0-2.1) RPR (NONREACTIVE) HIV 1&2 Antibody Screen (NEGATIVE) 04/21/17 04/21/17 04/21/17 Range/Units 14:20 14:20 14:10 WBC (4.8-10.8) K/uL RBC (3.80-5.20) Mil/uL Hgb (11.0-16.0) g/dL Hct (34.0-47.0) % MCV (81.0-99.0) fL MCH (27.0-31.0) pg MCHC (33.0-37.0) g/dL RDW (11.5-14.5) % Plt Count (130-400) K/uL MPV (7.2-11.7) fL Neut % (Auto) (50.0-75.0) % Lymph % (Auto) (20.0-40.0) % [place] % (Auto) (0.0-10.0) % Eos % (Auto) (0.0-4.0) % Baso % (Auto) (0.0-2.0) % Neut # (1.8-7.0) K/uL Lymph # (1.0-4.3) K/uL [place] # (0.0-0.8) K/uL Eos # (0.0-0.7) K/uL Baso # (0.0-0.2) K/uL ESR (0-20) mm/hr Sodium 138 (132-148) mmol/L Potassium 3.5 L (3.6-5.2) mmol/L Chloride 99 (98-107) mmol/L Carbon Dioxide 25 (22-30) mmol/L Anion Gap 18 (10-20) BUN 13 (7-17) mg/dL Creatinine 0.6 L (0.7-1.2) mg/dL Est GFR ( Amer) > 60 Est GFR (Non-Af Amer) > 60 Random Glucose 88 (65-105) mg/dL Lactic Acid (0.7-2.1) mmol/L Calcium 9.4 (8.6-10.4) mg/dl Phosphorus 3.2 (2.5-4.5) mg/dL Magnesium 1.9 (1.6-2.3) mg/dL Total Bilirubin 1.4 H (0.2-1.3) mg/dL AST 29 (14-36) U/L ALT 32 (9-52) U/L Alkaline Phosphatase 78 (38-126) U/L Total Creatine Kinase (30-135) U/L C-React Prot High Sens (1.00-3.00) mg/L Total Protein 7.9 (6.3-8.3) g/dL Albumin 4.9 (3.5-5.0) g/dL Globulin 2.9 (2.2-3.9) gm/dL Albumin/Globulin Ratio 1.7 (1.0-2.1) RPR Nonreactive (NONREACTIVE) HIV 1&2 Antibody Screen Negative (NEGATIVE) 04/21/17 04/21/17 Range/Units 14:10 14:10 WBC (4.8-10.8) K/uL RBC (3.80-5.20) Mil/uL Hgb (11.0-16.0) g/dL Hct (34.0-47.0) % MCV (81.0-99.0) fL MCH (27.0-31.0) pg MCHC (33.0-37.0) g/dL RDW (11.5-14.5) % Plt Count (130-400) K/uL MPV (7.2-11.7) fL Neut % (Auto) (50.0-75.0) % Lymph % (Auto) (20.0-40.0) % [place] % (Auto) (0.0-10.0) % Eos % (Auto) (0.0-4.0) % Baso % (Auto) (0.0-2.0) % Neut # (1.8-7.0) K/uL Lymph # (1.0-4.3) K/uL [place] # (0.0-0.8) K/uL Eos # (0.0-0.7) K/uL Baso # (0.0-0.2) K/uL ESR 4 (0-20) mm/hr Sodium (132-148) mmol/L Potassium (3.6-5.2) mmol/L Chloride (98-107) mmol/L Carbon Dioxide (22-30) mmol/L Anion Gap (10-20) BUN (7-17) mg/dL Creatinine (0.7-1.2) mg/dL Est GFR ( Amer) Est GFR (Non-Af Amer) Random Glucose (65-105) mg/dL Lactic Acid (0.7-2.1) mmol/L Calcium (8.6-10.4) mg/dl Phosphorus (2.5-4.5) mg/dL Magnesium (1.6-2.3) mg/dL Total Bilirubin (0.2-1.3) mg/dL AST (14-36) U/L ALT (9-52) U/L Alkaline Phosphatase (38-126) U/L Total Creatine Kinase (30-135) U/L C-React Prot High Sens 0.25 L (1.00-3.00) mg/L Total Protein (6.3-8.3) g/dL Albumin (3.5-5.0) g/dL Globulin (2.2-3.9) gm/dL Albumin/Globulin Ratio (1.0-2.1) RPR (NONREACTIVE) HIV 1&2 Antibody Screen (NEGATIVE) Laboratory Results - last 24 hr 04/21/17 04/21/17 04/21/17 14:10 14:10 14:10 WBC RBC Hgb Hct MCV MCH MCHC RDW Plt Count MPV Neut % (Auto) Lymph % (Auto) [place] % (Auto) Eos % (Auto) Baso % (Auto) Neut # Lymph # [place] # Eos # Baso # ESR 4 Sodium 138 Potassium 3.5 L Chloride 99 Carbon Dioxide 25 Anion Gap 18 BUN 13 Creatinine 0.6 L Est GFR ( Amer) > 60 Est GFR (Non-Af Amer) > 60 Random Glucose 88 Lactic Acid Calcium 9.4 Phosphorus 3.2 Magnesium 1.9 Total Bilirubin 1.4 H AST 29 ALT 32 Alkaline Phosphatase 78 Total Creatine Kinase C-React Prot High Sens 0.25 L Total Protein 7.9 Albumin 4.9 Globulin 2.9 Albumin/Globulin Ratio 1.7 RPR HIV 1&2 Antibody Screen 04/21/17 04/21/17 04/21/17 14:20 14:20 14:20 WBC RBC Hgb Hct MCV MCH MCHC RDW Plt Count MPV Neut % (Auto) Lymph % (Auto) [place] % (Auto) Eos % (Auto) Baso % (Auto) Neut # Lymph # [place] # Eos # Baso # ESR Sodium Potassium Chloride Carbon Dioxide Anion Gap BUN Creatinine Est GFR ( Amer) Est GFR (Non-Af Amer) Random Glucose Lactic Acid 0.7 Calcium Phosphorus Magnesium Total Bilirubin AST ALT Alkaline Phosphatase Total Creatine Kinase C-React Prot High Sens Total Protein Albumin Globulin Albumin/Globulin Ratio RPR Nonreactive HIV 1&2 Antibody Screen Negative 04/21/17 04/21/17 04/22/17 18:19 18:19 06:27 WBC 5.2 RBC 3.92 Hgb 12.2 Hct 34.7 MCV 88.3 MCH 31.1 H MCHC 35.2 RDW 12.3 Plt Count 270 MPV 7.6 Neut % (Auto) 53.0 Lymph % (Auto) 34.2 [place] % (Auto) 9.3 Eos % (Auto) 3.0 Baso % (Auto) 0.5 Neut # 2.8 Lymph # 1.8 [place] # 0.5 Eos # 0.2 Baso # 0.0 ESR Sodium Potassium Chloride Carbon Dioxide Anion Gap BUN Creatinine Est GFR ( Amer) Est GFR (Non-Af Amer) Random Glucose Lactic Acid 0.9 Calcium Phosphorus Magnesium Total Bilirubin AST ALT Alkaline Phosphatase Total Creatine Kinase 51 C-React Prot High Sens Total Protein Albumin Globulin Albumin/Globulin Ratio RPR HIV 1&2 Antibody Screen 04/22/17 04/22/17 06:27 06:30 WBC RBC Hgb Hct MCV MCH MCHC RDW Plt Count MPV Neut % (Auto) Lymph % (Auto) [place] % (Auto) Eos % (Auto) Baso % (Auto) Neut # Lymph # [place] # Eos # Baso # ESR Sodium 136 Potassium 3.7 Chloride 105 Carbon Dioxide 23 Anion Gap 12 BUN 12 Creatinine 0.6 L Est GFR ( Amer) > 60 Est GFR (Non-Af Amer) > 60 Random Glucose 61 L Lactic Acid Calcium 8.1 L Phosphorus 3.5 Magnesium 1.8 Total Bilirubin 0.5 AST 25 ALT 28 Alkaline Phosphatase 55 Total Creatine Kinase C-React Prot High Sens Total Protein 6.4 Albumin 3.3 L D Globulin 3.1 Albumin/Globulin Ratio 1.1 RPR HIV 1&2 Antibody Screen Fingerstick Blood Sugar Results: 89 Critical Care Progress Note - Nutrition Nutrition: Nutrition Category Date Time Status Regular Diet [DIET] Diets 04/20/17 Dinner Active
--- NOTE | 2017-04-22 23:15 | CP.PCM.PN ---
Subjective - Date & Time of Evaluation Date of Evaluation: 04/22/17 Time of Evaluation: 02:00 - Subjective Subjective: Pt seen and evalauted, she claims to have seizure 10 minutes ago, she is tacycardic, awake , alert, no involuntary movement now continue on neuro watch Objective - Vital Signs/Intake and Output Vital Signs (last 24 hours): Temp Pulse Resp BP Pulse Ox 97.1 F L 87 20 102/68 98 04/22/17 20:00 04/22/17 20:00 04/22/17 20:00 04/22/17 20:00 04/22/17 20:00 Intake and Output: 04/22/17 04/23/17 18:59 06:59 Intake Total 1300 100 Output Total 1000 Balance 300 100 - Medications Medications: Current Medications Acetaminophen (Tylenol 325mg Tab) 650 mg PO Q6 PRN PRN Reason: Headache Heparin Sodium (Porcine) (Heparin) 5,000 units SC Q8H [facility] Last Admin: 04/22/17 18:17 Dose: 5,000 units Sodium Chloride (Sodium Chloride 0.9%) 1,000 mls @ 100 mls/hr IV .Q10H [facility] Last Admin: 04/22/17 10:52 Dose: 100 mls/hr Levetiracetam 1,500 mg/ (Dextrose) 265 mls @ 220 mls/hr IVPB Q12H [facility] Last Admin: 04/22/17 14:31 Dose: 220 mls/hr Lorazepam (Ativan) 1 mg IVP Q6 PRN PRN Reason: Anxiety Last Admin: 04/22/17 21:05 Dose: 1 mg Ondansetron HCl (Zofran Inj) 4 mg IVP Q8 PRN PRN Reason: Nausea/Vomiting Phenytoin Sodium (Dilantin) 100 mg PO TID [facility] Last Admin: 04/22/17 18:17 Dose: 100 mg - Labs Labs: 04/22/17 06:27 04/22/17 06:27 - Constitutional Appears: No Acute Distress - Head Exam Head Exam: ATRAUMATIC, NORMAL INSPECTION, NORMOCEPHALIC - Eye Exam Eye Exam: EOMI, Normal appearance, PERRL Pupil Exam: NORMAL ACCOMODATION, PERRL - Respiratory Exam Respiratory Exam: Clear to Ausculation Bilateral, NORMAL BREATHING PATTERN - Cardiovascular Exam Cardiovascular Exam: REGULAR RHYTHM, +S1, +S2. absent: Murmur - GI/Abdominal Exam GI & Abdominal Exam: Soft, Normal Bowel Sounds. absent: Tenderness - Rectal Exam Rectal Exam: Deferred Assessment and Plan (1) Hypokalemia Status: Acute (2) Near syncope Status: Acute (3) POTS (postural orthostatic tachycardia syndrome) Status: Acute (4) Seizure Status: Acute (5) Seizure disorder Status: Acute
[2017-04-23] MEDS: DEXTROSE 5% IVPB SCH ×2 (01:33→13:16)
[2017-04-23] MEDS: WATER IVPB SCH ×2 (01:33→13:16)
[2017-04-23] MEDS: LEVETIRACETAM IVPB SCH ×2 (01:33→13:16)
[2017-04-23] MEDS: Sodium Chloride 0.9% 1,000 ML IV SCH ×4 (01:35→16:01)
[2017-04-23 06:52] LABS: BASO % 0.4 % (0.0-2.0); EOS # 0.2 K/uL (0.0-0.7); EOS % 4.3 % (0.0-4.0); HEMATOCRIT 34.1 % (34.0-47.0); LYMPH # 1.8 K/uL (1.0-4.3); LYMPH % 32.7 % (20.0-40.0); MEAN CORPUSCULAR HEMOGLOBIN 30.6 pg (27.0-31.0); MEAN CORPUSCULAR HGB CONC 35.2 g/dL (33.0-37.0); MEAN PLATELET VOLUME 7.1 fL (7.2-11.7); MONO # 0.5 K/uL (0.0-0.8); MONO % 9.4 % (0.0-10.0); RED CELL DISTRIBUTION WIDTH 12.4 % (11.5-14.5); WHITE BLOOD COUNT 5.5 K/uL (4.8-10.8)
[2017-04-23 07:06] LABS: ALB/GLOB RATIO 1.1 (1.0-2.1); ALKALINE PHOSPHATASE 55 U/L (38-126); ALT/SGPT 31 U/L (9-52); AST/SGOT 15 U/L (14-36); BILIRUBIN,TOTAL 0.3 mg/dL (0.2-1.3); BLOOD UREA NITROGEN 5 mg/dL (7-17); CALCIUM 8.2 mg/dl (8.6-10.4); CARBON DIOXIDE 23 mmol/L (22-30); CHLORIDE 103 mmol/L (98-107); GFR AFRICAN-AMERICAN > 60; GLUCOSE,RANDOM 80 mg/dL (65-105); MAGNESIUM 1.7 mg/dL (1.6-2.3); POTASSIUM 3.2 mmol/L (3.6-5.2); SODIUM 136 mmol/L (132-148); TOTAL PROTEIN 6.5 g/dL (6.3-8.3)
[2017-04-23] MEDS ORDERED: Potassium Chloride 20 mEq ER Tab PO ONE (10:28)
--- NOTE | 2017-04-23 16:35 | CP.CCUPN ---
CCU Subjective - Physician Review Events Since Last Encounter (Free Text): 04/23/17 16:18 Patient seen and examined in the intensive care unit. 21-year-old female admitted with recurrent seizure activity. Patient started on Keppra and Dilantin. Overnight had one episode of seizure activity and was given Ativan 2 mg. Patient is awake and responsive and no further seizure activity noted during the daytime CCU Objective - Vital Signs / Intake & Output Vital Signs (Last 4 hours): Vital Signs Pulse Resp BP Pulse Ox 04/23/17 15:00 104 H 16 100 04/23/17 14:14 108 H 18 97/56 L 99 04/23/17 14:00 103 H 14 100 04/23/17 13:14 88 23 95/62 L 04/23/17 13:00 79 18 Intake and Output (Last 8hrs): Intake & Output 04/23/17 04/23/17 04/23/17 06:59 14:59 22:59 Intake Total 950 1500 100 Output Total 300 450 200 Balance 650 1050 -100 Weight 108 lb 6.8 oz Intake: Intake, IV Amount 950 800 100 Left Antecubital 950 800 100 Oral 700 Output: Urine 300 450 200 Urine, Voided 300 450 200 Stool 0 0 Other: # Voids Urine, Voided 0 0 - Physical Exam Head: Positive for: Atraumatic, Normocephalic Pupils: Positive for: PERRL Extroacular Muscles: Positive for: EOMI Conjunctiva: Positive for: Normal Mouth: Positive for: Moist Mucous Membranes Neck: Positive for: Normal Range of Motion Respiratory/Chest: Positive for: Clear to Auscultation, Good Air Exchange. Negative for: Accessory Muscle Use Cardiovascular: Positive for: Normal S1, S2, Tachycardic Abdomen: Negative for: Tenderness, Distention Upper Extremity: Positive for: Normal Inspection. Negative for: Edema Lower Extremity: Positive for: Normal Inspection. Negative for: Edema Skin: Positive for: Warm, Normal Color Psychiatric: Positive for: Alert, Oriented x 3 - Medications Active Medications: Active Medications Generic Name Dose Route Start Last Admin Trade Name Freq PRN Reason Stop Dose Admin Acetaminophen 650 mg 04/20/17 16:05 Tylenol 325mg Tab PO Q6 PRN Headache Heparin Sodium (Porcine) 5,000 units 04/21/17 18:00 04/23/17 09:53 Heparin SC 5,000 units Q8H ALEJANDRO Administration Sodium Chloride 1,000 mls @ 100 mls/hr 04/21/17 14:00 04/23/17 16:01 Sodium Chloride 0.9% IV Not Given .Q10H ALEJANDRO Levetiracetam 1,500 mg/ 265 mls @ 220 mls/hr 04/22/17 01:45 04/23/17 13:16 Dextrose IVPB 220 mls/hr Q12H ALEJANDRO Administration Lorazepam 1 mg 04/20/17 16:01 04/22/17 21:05 Ativan IVP 1 mg Q6 PRN Administration Anxiety Ondansetron HCl 4 mg 04/20/17 16:04 Zofran Inj IVP Q8 PRN Nausea/Vomiting Phenytoin Sodium 100 mg 04/20/17 18:00 04/23/17 13:16 Dilantin PO 100 mg TID ALEJANDRO Administration - Patient Studies Lab Studies: Microbiology Studies 04/21/17 14:00 MRSA Culture (Admit) - Final [place] MRSA NOT DETECTED Lab Studies 04/23/17 04/23/17 04/23/17 Range/Units 14:20 06:49 06:49 WBC 5.5 (4.8-10.8) K/uL RBC 3.92 (3.80-5.20) Mil/uL Hgb 12.0 (11.0-16.0) g/dL Hct 34.1 (34.0-47.0) % MCV 87.0 (81.0-99.0) fL MCH 30.6 (27.0-31.0) pg MCHC 35.2 (33.0-37.0) g/dL RDW 12.4 (11.5-14.5) % Plt Count 263 (130-400) K/uL MPV 7.1 L (7.2-11.7) fL Neut % (Auto) 53.2 (50.0-75.0) % Lymph % (Auto) 32.7 (20.0-40.0) % [place] % (Auto) 9.4 (0.0-10.0) % Eos % (Auto) 4.3 H (0.0-4.0) % Baso % (Auto) 0.4 (0.0-2.0) % Neut # 2.9 (1.8-7.0) K/uL Lymph # 1.8 (1.0-4.3) K/uL [place] # 0.5 (0.0-0.8) K/uL Eos # 0.2 (0.0-0.7) K/uL Baso # 0.0 (0.0-0.2) K/uL Sodium 136 (132-148) mmol/L Potassium 3.2 L (3.6-5.2) mmol/L Chloride 103 (98-107) mmol/L Carbon Dioxide 23 (22-30) mmol/L Anion Gap 13 (10-20) BUN 5 L (7-17) mg/dL Creatinine 0.5 L (0.7-1.2) mg/dL Est GFR ( Amer) > 60 Est GFR (Non-Af Amer) > 60 Random Glucose 80 (65-105) mg/dL Calcium 8.2 L (8.6-10.4) mg/dl Phosphorus 4.0 (2.5-4.5) mg/dL Magnesium 1.7 (1.6-2.3) mg/dL Total Bilirubin 0.3 (0.2-1.3) mg/dL AST 15 (14-36) U/L ALT 31 (9-52) U/L Alkaline Phosphatase 55 (38-126) U/L Total Protein 6.5 (6.3-8.3) g/dL Albumin 3.4 L (3.5-5.0) g/dL Globulin 3.1 (2.2-3.9) gm/dL Albumin/Globulin Ratio 1.1 (1.0-2.1) Phenytoin 11.7 (10-20) ug/mL Laboratory Results - last 24 hr 04/23/17 04/23/17 04/23/17 06:49 06:49 14:20 WBC 5.5 RBC 3.92 Hgb 12.0 Hct 34.1 MCV 87.0 MCH 30.6 MCHC 35.2 RDW 12.4 Plt Count 263 MPV 7.1 L Neut % (Auto) 53.2 Lymph % (Auto) 32.7 [place] % (Auto) 9.4 Eos % (Auto) 4.3 H Baso % (Auto) 0.4 Neut # 2.9 Lymph # 1.8 [place] # 0.5 Eos # 0.2 Baso # 0.0 Sodium 136 Potassium 3.2 L Chloride 103 Carbon Dioxide 23 Anion Gap 13 BUN 5 L Creatinine 0.5 L Est GFR ( Amer) > 60 Est GFR (Non-Af Amer) > 60 Random Glucose 80 Calcium 8.2 L Phosphorus 4.0 Magnesium 1.7 Total Bilirubin 0.3 AST 15 ALT 31 Alkaline Phosphatase 55 Total Protein 6.5 Albumin 3.4 L Globulin 3.1 Albumin/Globulin Ratio 1.1 Phenytoin 11.7 Fingerstick Blood Sugar Results: 89 Critical Care Progress Note - Nutrition Nutrition: Nutrition Category Date Time Status Regular Diet [DIET] Diets 04/20/17 Dinner Active Assessment/Plan (1) Seizure Current Visit: No Status: Acute Comment: Continue Keppra Ativan as needed Neurology follow-up Continue ICU observation
--- NOTE | 2017-04-23 20:35 | CP.PCM.PN ---
Subjective - Date & Time of Evaluation Date of Evaluation: 04/23/17 Time of Evaluation: 14:00 - Subjective Subjective: Patient is awake and responsive and no further seizure activity noted during the daytime, she is anxious, denies any nausea/ vomitting Objective - Vital Signs/Intake and Output Vital Signs (last 24 hours): Temp Pulse Resp BP Pulse Ox 98.1 F 92 H 20 81/44 L 97 04/23/17 20:00 04/23/17 20:00 04/23/17 20:00 04/23/17 19:14 04/23/17 20:00 Intake and Output: 04/23/17 04/24/17 18:59 06:59 Intake Total 2100 200 Output Total 900 0 Balance 1200 200 - Medications Medications: Current Medications Acetaminophen (Tylenol 325mg Tab) 650 mg PO Q6 PRN PRN Reason: Headache Heparin Sodium (Porcine) (Heparin) 5,000 units SC Q8H [facility] Last Admin: 04/23/17 17:57 Dose: 5,000 units Sodium Chloride (Sodium Chloride 0.9%) 1,000 mls @ 100 mls/hr IV .Q10H [facility] Last Admin: 04/23/17 16:01 Dose: Not Given Levetiracetam 1,500 mg/ (Dextrose) 265 mls @ 220 mls/hr IVPB Q12H [facility] Last Admin: 04/23/17 13:16 Dose: 220 mls/hr Lorazepam (Ativan) 1 mg IVP Q6 PRN PRN Reason: Anxiety Last Admin: 04/23/17 16:40 Dose: 1 mg Ondansetron HCl (Zofran Inj) 4 mg IVP Q8 PRN PRN Reason: Nausea/Vomiting Phenytoin Sodium (Dilantin) 100 mg PO TID [facility] Last Admin: 04/23/17 17:57 Dose: 100 mg - Labs Labs: 04/23/17 06:49 04/23/17 06:49 - Constitutional Appears: No Acute Distress - Head Exam Head Exam: ATRAUMATIC, NORMAL INSPECTION, NORMOCEPHALIC - Eye Exam Eye Exam: EOMI, Normal appearance, PERRL Pupil Exam: NORMAL ACCOMODATION, PERRL - Respiratory Exam Respiratory Exam: Clear to Ausculation Bilateral, NORMAL BREATHING PATTERN - Cardiovascular Exam Cardiovascular Exam: REGULAR RHYTHM, +S1, +S2. absent: Murmur - GI/Abdominal Exam GI & Abdominal Exam: Soft, Normal Bowel Sounds. absent: Tenderness Assessment and Plan (1) Hypokalemia Status: Acute (2) Near syncope Status: Acute (3) POTS (postural orthostatic tachycardia syndrome) Status: Acute (4) Seizure Status: Acute (5) Seizure disorder Status: Acute
[2017-04-24] MEDS: Sodium Chloride 0.9% 1,000 ML IV SCH (01:30)
[2017-04-24] MEDS: WATER IVPB SCH (01:45)
[2017-04-24] MEDS: LEVETIRACETAM IVPB SCH (01:45)
[2017-04-24] MEDS: DEXTROSE 5% IVPB SCH (01:45)
[2017-04-24 06:34] LABS: BASO % 0.4 % (0.0-2.0); EOS # 0.2 K/uL (0.0-0.7); HEMATOCRIT 33.9 % (34.0-47.0); LYMPH # 1.9 K/uL (1.0-4.3); LYMPH % 34.4 % (20.0-40.0); MEAN CELL VOLUME 87.8 fL (81.0-99.0); MEAN CORPUSCULAR HEMOGLOBIN 31.2 pg (27.0-31.0); MEAN CORPUSCULAR HGB CONC 35.6 g/dL (33.0-37.0); MEAN PLATELET VOLUME 7.5 fL (7.2-11.7); MONO # 0.5 K/uL (0.0-0.8); MONO % 9.4 % (0.0-10.0); NRBC % 0.1 % (0.0-2.0); RED CELL DISTRIBUTION WIDTH 12.5 % (11.5-14.5); WHITE BLOOD COUNT 5.5 K/uL (4.8-10.8)
[2017-04-24 06:43] LABS: ALKALINE PHOSPHATASE 52 U/L (38-126); ALT/SGPT 28 U/L (9-52); AST/SGOT 15 U/L (14-36); BILIRUBIN,TOTAL 0.2 mg/dL (0.2-1.3); BLOOD UREA NITROGEN 4 mg/dL (7-17); CALCIUM 8.5 mg/dl (8.6-10.4); CARBON DIOXIDE 24 mmol/L (22-30); CHLORIDE 104 mmol/L (98-107); GFR AFRICAN-AMERICAN > 60; GLUCOSE,RANDOM 83 mg/dL (65-105); MAGNESIUM 1.7 mg/dL (1.6-2.3); PHOSPHOROUS 3.8 mg/dL (2.5-4.5); POTASSIUM 3.6 mmol/L (3.6-5.2); SODIUM 137 mmol/L (132-148); TOTAL PROTEIN 6.2 g/dL (6.3-8.3)
[2017-04-24 06:49] LABS: ALB/GLOB RATIO 1.1 (1.0-2.1)
[2017-04-24 10:46] VITALS: BP 111/69; PULSE 115; RESP 14
--- NOTE | 2017-04-24 11:46 | CP.PCM.DIS ---
Provider - Provider Date of Admission: 04/20/17 13:08 Attending physician: Pravin Bull MD Consults: Neuro: [facility] Course - Lab Results Lab Results: Micro Results 04/21/17 14:00 Naris MRSA Culture (Admit) - Final MRSA NOT DETECTED Most Recent Lab Values WBC 5.5 K/uL (4.8-10.8) 04/24/17 06:23 RBC 3.87 Mil/uL (3.80-5.20) 04/24/17 06:23 Hgb 12.1 g/dL (11.0-16.0) 04/24/17 06:23 Hct 33.9 % (34.0-47.0) L 04/24/17 06:23 MCV 87.8 fL (81.0-99.0) 04/24/17 06:23 MCH 31.2 pg (27.0-31.0) H 04/24/17 06:23 MCHC 35.6 g/dL (33.0-37.0) 04/24/17 06:23 RDW 12.5 % (11.5-14.5) 04/24/17 06:23 Plt Count 246 K/uL (130-400) 04/24/17 06:23 MPV 7.5 fL (7.2-11.7) 04/24/17 06:23 Neut % (Auto) 51.8 % (50.0-75.0) 04/24/17 06:23 Lymph % (Auto) 34.4 % (20.0-40.0) 04/24/17 06:23 [place] % (Auto) 9.4 % (0.0-10.0) 04/24/17 06:23 Eos % (Auto) 4.0 % (0.0-4.0) 04/24/17 06:23 Baso % (Auto) 0.4 % (0.0-2.0) 04/24/17 06:23 Neut # 2.8 K/uL (1.8-7.0) 04/24/17 06:23 Lymph # 1.9 K/uL (1.0-4.3) 04/24/17 06:23 [place] # 0.5 K/uL (0.0-0.8) 04/24/17 06:23 Eos # 0.2 K/uL (0.0-0.7) 04/24/17 06:23 Baso # 0.0 K/uL (0.0-0.2) 04/24/17 06:23 ESR 4 mm/hr (0-20) 04/21/17 14:10 Sodium 137 mmol/L (132-148) 04/24/17 06:24 Potassium 3.6 mmol/L (3.6-5.2) 04/24/17 06:24 Chloride 104 mmol/L (98-107) 04/24/17 06:24 Carbon Dioxide 24 mmol/L (22-30) 04/24/17 06:24 Anion Gap 12 (10-20) 04/24/17 06:24 BUN 4 mg/dL (7-17) L 04/24/17 06:24 Creatinine 0.5 mg/dL (0.7-1.2) L 04/24/17 06:24 Est GFR ( Amer) > 60 04/24/17 06:24 Est GFR (Non-Af Amer) > 60 04/24/17 06:24 Random Glucose 83 mg/dL (65-105) 04/24/17 06:24 Lactic Acid 0.9 mmol/L (0.7-2.1) 04/21/17 18:19 Calcium 8.5 mg/dl (8.6-10.4) L 04/24/17 06:24 Phosphorus 3.8 mg/dL (2.5-4.5) 04/24/17 06:24 Magnesium 1.7 mg/dL (1.6-2.3) 04/24/17 06:24 Total Bilirubin 0.2 mg/dL (0.2-1.3) 04/24/17 06:24 AST 15 U/L (14-36) 04/24/17 06:24 ALT 28 U/L (9-52) 04/24/17 06:24 Alkaline Phosphatase 52 U/L (38-126) 04/24/17 06:24 Total Creatine Kinase 51 U/L (30-135) 04/21/17 18:19 C-React Prot High Sens 0.25 mg/L (1.00-3.00) L 04/21/17 14:10 Total Protein 6.2 g/dL (6.3-8.3) L 04/24/17 06:24 Albumin 3.3 g/dL (3.5-5.0) L 04/24/17 06:24 Globulin 2.9 gm/dL (2.2-3.9) 04/24/17 06:24 Albumin/Globulin Ratio 1.1 (1.0-2.1) 04/24/17 06:24 Urine Color Straw (YELLOW) 04/20/17 11:17 Urine Clarity Clear (Clear) 04/20/17 11:17 Urine pH 6.0 (5.0-8.0) 04/20/17 11:17 Ur Specific [place] 1.006 (1.003-1.030) 04/20/17 11:17 Urine Protein Negative mg/dL (NEGATIVE) 04/20/17 11:17 Urine Glucose (UA) Normal mg/dL (Normal) 04/20/17 11:17 Urine Ketones Trace mg/dL (NEGATIVE) 04/20/17 11:17 Urine Blood Negative (NEGATIVE) 04/20/17 11:17 Urine Nitrate Negative (NEGATIVE) 04/20/17 11:17 Urine Bilirubin Negative (NEGATIVE) 04/20/17 11:17 Urine Urobilinogen Normal mg/dL (0.2-1.0) 04/20/17 11:17 Ur Leukocyte Esterase 1+ [place]/uL (Negative) H 04/20/17 11:17 Urine WBC (Auto) 6 /hpf (0-5) H 04/20/17 11:17 Urine RBC (Auto) 1 /hpf (0-3) 04/20/17 11:17 Ur Squamous Epith Cells 2 /hpf (0-5) 04/20/17 11:17 Urine Bacteria Occ (<OCC) H 04/20/17 11:17 Urine HCG, Qual Negative (NEGATIVE) 04/22/17 11:09 Phenytoin 11.7 ug/mL (10-20) 04/23/17 14:20 RPR Nonreactive (NONREACTIVE) 04/21/17 14:20 HSV I IgG Ab <0.90 index 04/21/17 14:10 HSV II IgG <0.90 index 04/21/17 14:10 HIV 1&2 Antibody Screen Negative (NEGATIVE) 04/21/17 14:20 Discharge Exam - Head Exam Head Exam: ATRAUMATIC, NORMAL INSPECTION, NORMOCEPHALIC Discharge Plan - Follow Up Plan Condition: SERIOUS Disposition: HOME/ ROUTINE
[2017-04-24 15:08] VITALS: TEMP 98.2
[2017-04-24 16:14] LABS: HTLV-I-II AB W/REFL CONF Nonreactive (Nonreactive)
--- NOTE | 2017-04-24 23:40 | CP.PCM.DIS ---
Provider - Provider Date of Admission: 04/20/17 13:08 Attending physician: Pravin Bull MD Time Spent in preparation of Discharge (in minutes): 45 Hospital Course - Lab Results Lab Results: Micro Results 04/21/17 14:00 Naris MRSA Culture (Admit) - Final MRSA NOT DETECTED Most Recent Lab Values WBC 5.5 K/uL (4.8-10.8) 04/24/17 06:23 RBC 3.87 Mil/uL (3.80-5.20) 04/24/17 06:23 Hgb 12.1 g/dL (11.0-16.0) 04/24/17 06:23 Hct 33.9 % (34.0-47.0) L 04/24/17 06:23 MCV 87.8 fL (81.0-99.0) 04/24/17 06:23 MCH 31.2 pg (27.0-31.0) H 04/24/17 06:23 MCHC 35.6 g/dL (33.0-37.0) 04/24/17 06:23 RDW 12.5 % (11.5-14.5) 04/24/17 06:23 Plt Count 246 K/uL (130-400) 04/24/17 06:23 MPV 7.5 fL (7.2-11.7) 04/24/17 06:23 Neut % (Auto) 51.8 % (50.0-75.0) 04/24/17 06:23 Lymph % (Auto) 34.4 % (20.0-40.0) 04/24/17 06:23 Murray % (Auto) 9.4 % (0.0-10.0) 04/24/17 06:23 Eos % (Auto) 4.0 % (0.0-4.0) 04/24/17 06:23 Baso % (Auto) 0.4 % (0.0-2.0) 04/24/17 06:23 Neut # 2.8 K/uL (1.8-7.0) 04/24/17 06:23 Lymph # 1.9 K/uL (1.0-4.3) 04/24/17 06:23 Murray # 0.5 K/uL (0.0-0.8) 04/24/17 06:23 Eos # 0.2 K/uL (0.0-0.7) 04/24/17 06:23 Baso # 0.0 K/uL (0.0-0.2) 04/24/17 06:23 ESR 4 mm/hr (0-20) 04/21/17 14:10 Sodium 137 mmol/L (132-148) 04/24/17 06:24 Potassium 3.6 mmol/L (3.6-5.2) 04/24/17 06:24 Chloride 104 mmol/L (98-107) 04/24/17 06:24 Carbon Dioxide 24 mmol/L (22-30) 04/24/17 06:24 Anion Gap 12 (10-20) 04/24/17 06:24 BUN 4 mg/dL (7-17) L 04/24/17 06:24 Creatinine 0.5 mg/dL (0.7-1.2) L 04/24/17 06:24 Est GFR ( Amer) > 60 04/24/17 06:24 Est GFR (Non-Af Amer) > 60 04/24/17 06:24 Random Glucose 83 mg/dL (65-105) 04/24/17 06:24 Lactic Acid 0.9 mmol/L (0.7-2.1) 04/21/17 18:19 Calcium 8.5 mg/dl (8.6-10.4) L 04/24/17 06:24 Phosphorus 3.8 mg/dL (2.5-4.5) 04/24/17 06:24 Magnesium 1.7 mg/dL (1.6-2.3) 04/24/17 06:24 Total Bilirubin 0.2 mg/dL (0.2-1.3) 04/24/17 06:24 AST 15 U/L (14-36) 04/24/17 06:24 ALT 28 U/L (9-52) 04/24/17 06:24 Alkaline Phosphatase 52 U/L (38-126) 04/24/17 06:24 Total Creatine Kinase 51 U/L (30-135) 04/21/17 18:19 C-React Prot High Sens 0.25 mg/L (1.00-3.00) L 04/21/17 14:10 Total Protein 6.2 g/dL (6.3-8.3) L 04/24/17 06:24 Albumin 3.3 g/dL (3.5-5.0) L 04/24/17 06:24 Globulin 2.9 gm/dL (2.2-3.9) 04/24/17 06:24 Albumin/Globulin Ratio 1.1 (1.0-2.1) 04/24/17 06:24 Urine Color Straw (YELLOW) 04/20/17 11:17 Urine Clarity Clear (Clear) 04/20/17 11:17 Urine pH 6.0 (5.0-8.0) 04/20/17 11:17 Ur Specific Linn 1.006 (1.003-1.030) 04/20/17 11:17 Urine Protein Negative mg/dL (NEGATIVE) 04/20/17 11:17 Urine Glucose (UA) Normal mg/dL (Normal) 04/20/17 11:17 Urine Ketones Trace mg/dL (NEGATIVE) 04/20/17 11:17 Urine Blood Negative (NEGATIVE) 04/20/17 11:17 Urine Nitrate Negative (NEGATIVE) 04/20/17 11:17 Urine Bilirubin Negative (NEGATIVE) 04/20/17 11:17 Urine Urobilinogen Normal mg/dL (0.2-1.0) 04/20/17 11:17 Ur Leukocyte Esterase 1+ Zulema/uL (Negative) H 04/20/17 11:17 Urine WBC (Auto) 6 /hpf (0-5) H 04/20/17 11:17 Urine RBC (Auto) 1 /hpf (0-3) 04/20/17 11:17 Ur Squamous Epith Cells 2 /hpf (0-5) 04/20/17 11:17 Urine Bacteria Occ (<OCC) H 04/20/17 11:17 Urine HCG, Qual Negative (NEGATIVE) 04/22/17 11:09 Phenytoin 11.7 ug/mL (10-20) 04/23/17 14:20 RPR Nonreactive (NONREACTIVE) 04/21/17 14:20 HSV I IgG Ab <0.90 index 04/21/17 14:10 HSV II IgG <0.90 index 04/21/17 14:10 HIV 1&2 Antibody Screen Negative (NEGATIVE) 04/21/17 14:20 HTLV I/II Antibody Nonreactive (Nonreactive) 04/21/17 14:10 HTLV I/II Ab (SESAR) TEST NOT PERFORMED 04/21/17 14:10 HTLV I/II P19-I TEST NOT PERFORMED 04/21/17 14:10 HTLV I/II P19-I/II TEST NOT PERFORMED 04/21/17 14:10 HTLV I/II P24 TEST NOT PERFORMED 04/21/17 14:10 HTLV I/II gp 21 TEST NOT PERFORMED 04/21/17 14:10 HTLV I/II gp 46 TEST NOT PERFORMED 04/21/17 14:10 HTLV I/II gp 46-I TEST NOT PERFORMED 04/21/17 14:10 HTLV I/II gp 46-II TEST NOT PERFORMED 04/21/17 14:10 HTLV Streptavidin Ctrl TEST NOT PERFORMED 04/21/17 14:10 Discharge Exam - Head Exam Head Exam: ATRAUMATIC, NORMAL INSPECTION, NORMOCEPHALIC - Eye Exam Eye Exam: Normal appearance - ENT Exam ENT Exam: Mucous Membranes Moist - Respiratory Exam Respiratory Exam: Clear to PA & Lateral, NORMAL BREATHING PATTERN - Cardiovascular Exam Cardiovascular Exam: REGULAR RHYTHM, +S1, +S2 - GI/Abdominal Exam GI & Abdominal Exam: Normal Bowel Sounds - Neurological Exam Neurological exam: Alert, CN II-XII Intact, Normal Gait, Oriented x3, Reflexes Normal - Psychiatric Exam Psychiatric exam: Normal Affect, Normal Mood Discharge Plan - Discharge Medications Prescriptions: Phenytoin, Extended [Dilantin] 100 mg PO TID 30 Days cer Phenytoin [Dilantin] 50 mg PO DAILY 30 Days ctb Levetiracetam [Keppra] 1,500 mg PO BID 30 Days tablet - Follow Up Plan Condition: SERIOUS Disposition: AGAINST MEDICAL ADVICE Instructions: Recurrent Seizures in Adults (DC) Additional Instructions: Patient is signing out against medical advice. Patient is accompanied by her mother and father at bedside, who state they are taking the patient to [facility] for further treatment. They were informed of risks including but not limited to seizures, uncontrollable seizures, respiratory distress/failure, coma and/or . She was given prescriptions for Keppra and Dilantin. Referrals: Jose Walter MD [Staff Provider] -
--- NOTE | 2017-04-25 07:04 | PN ---
DATE: 04/24/2017 NEUROLOGICAL PROBLEM: Status epilepticus. PHYSICAL EXAMINATION: VITAL SIGNS: Blood pressure 96/59 with a mean arterial pressure of 68, pulse rate 117, respiratory rate 16, temperature afebrile. Events noted whatever it happened over the weekend, multiple seizures, being followed by safety relief valve technician and on-call physicians. The patient has been loaded with Ativan. 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 The patient states that she does have aura manifesting with palpitation, blurriness of the vision, following this losing of consciousness, not associated with biting of tongue or bowel or bladder incontinence. Her examination is unchanged to compare with the previous exam. The patient is alert, oriented. Mentation is normal. The patient is scheduled to have a continuous EEG monitoring at least in daytime. This will be followed by me. The patient's Dilantin level was increased to 350 mg a day to keep the Dilantin therapeutic level with Keppra. The patient's condition will be discussed with the epileptologist and epileptic surgeon in [place], availability. The patient would be discharged or transferred to their center for further evaluation and treatment. The patient's condition also discussed with agreed plan of management. Jose Walter MD
[2017-04-25 15:49] VITALS: O2SAT 97
[2017-04-28 17:55] LABS: ACETONE None Detected; ETHANOL None Detected; METHANOL None Detected
== END 2017-04-24 12:25 | disposition left against medical advice (07) | DRG 101 ==
LOC: C.ER 10:32 → C.9E 13:08 → C.6T 15:39 → C.9I 04-21 12:15
PROVIDERS: ADMIT Internal Medicine; ATTEND Internal Medicine
DX: G40.401 Other generalized epilepsy and epileptic syndromes, not intractable, with status epilepticus (principal); E23.6 Other disorders of pituitary gland; F41.1 Generalized anxiety disorder; E87.6 Hypokalemia; R55 Syncope and collapse; I49.8 Other specified cardiac arrhythmias

== ENCOUNTER 2017-07-28 14:19 | Emergency (ER) | payer BC ==
[2017-07-28 14:19] VITALS: BMI 18.8
--- NOTE | 2017-07-28 14:25 | C.PDOC ---
History Of Present Illness 21 y/o F c PMHx epilepsy p/w seizure just prior to arrival. 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 Fellow staff members laid patient down on floor, deny any trauma. Patient now awake but drowsy but answering all questions. She states she was recently admitted for recurrent seizures, had Keppra increased, has been compliant and does not wish to be readmitted. She denies any pain, urinary or bowel incontinence, tongue bite, fever, stiff neck, vomiting, dysuria. Past Medical History Vital Signs: Last Vital Signs Temp 99.0 F 07/28/17 15:58 Pulse 114 H 07/28/17 15:58 Resp 21 07/28/17 15:58 BP 114/73 07/28/17 15:58 Pulse Ox 96 07/28/17 15:58 - Medical History PMH: Seizures Denies: Chronic Kidney Disease Family History: States: Unknown Family Hx - Social History Hx Alcohol Use: Yes (occasional) Hx Substance Use: No - Immunization History Hx Tetanus Toxoid Vaccination: Yes Hx Influenza Vaccination: Yes Hx Pneumococcal Vaccination: No Review Of Systems Except As Marked, All Systems Reviewed And Found Negative. Constitutional: Negative for: Fever Cardiovascular: Negative for: Chest Pain Physical Exam - Physical Exam Additional Physical Exam Comments: Appears: Non-toxic, No Acute Distress Skin: Normal Color Head: Atraumatic, Normacephalic Eye(s): bilateral: PERRL, EOMI Oral Mucosa: Moist Throat: No Erythema, No Exudate Neck: No Midline Cervical Tenderness, No Step Off Deformity, Supple Chest: No Tenderness Cardiovascular: Other (Tachycardic) Respiratory: Normal Breath Sounds Gastrointestinal/Abdominal: Soft, No Tenderness Back: No CVA Tenderness, No Vertebral Tenderness Extremity: Normal ROM, No Tenderness, No Swelling Pulses: Left Radial: Normal, Right Radial: Normal Neurological/Psych: Other (Drowsy, no focal deficit) ED Course And Treatment - Laboratory Results Result Diagrams: 07/28/17 15:43 07/28/17 15:43 Medical Decision Making Medical Decision Making: Will monitor in ED until post ictal period resolved and patient at baseline. Patient states she feels normal, would like to go home. She states HR is tachycardic at baseline. Uncle at bedside, will take patient home. Disposition - Disposition Referrals: Jose Walter MD [Staff Provider] - Disposition: HOME/ ROUTINE Disposition Time: 17:17 Condition: STABLE Instructions: Epilepsy in Adults - Clinical Impression Clinical Impression: Seizure
--- NOTE | 2017-07-28 14:29 | PCM.RRT ---
<Shaniqua Holcomb - Last Filed: 07/28/17 14:26> CARD CLEANER Nurses Assessment - Situation Date: 07/28/17 Time CARD CLEANER was called: 14:00 CARD CLEANER Responder Arrival Time:: 14:02 CARD CLEANER Location:: Radiology - IV IV Inserted during CARD CLEANER?: Yes New IV Insertion Tolerance: Excellent - Medication Medications Administered During CARD CLEANER: Ativan 2mg x2 doses I.Reason for CARD CLEANER - A) Acute Change in Patient: (Select all that apply): Staff member or family is worried about patient Subjective: Rapid Response called at 14:00 for seizure. 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 Patient began seizing again upon our arrival to the scene. Patient was turned on her side and an IV line inserted. Patient was noted to be having a seizure 6 times in the radiology department during the rapid. Patient was given 2 mg of Ativan and became stable enough for transfer to the ED. In the ED patient had another seizure and was given another 2 mg of ativan. At that time the ED physician took over the care of the patient. - Constitutional Appears: Other (post ictal ) - Head Head Exam: ATRAUMATIC, NORMAL INSPECTION, NORMOCEPHALIC - Neurological Exam Additional exam: Seizing - Extremities Exam Extremities Exam: Normal Inspection Plan - Assessment of Findings&Treatment Plan Transferred from radiology department to the ED. Total of 4 mg ativan given during rapid. 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 This has happened several times in the past before. They tell me that she normally takes Keppra as well as Dilantin. It's not immediately clear to us if she took her morning medications for not. The students who are with her explained that she did not fall and hit her head. Because they know her very well they had her lay down on the hospital stretcher before she started seizing. By the time I came to see the patient she was already on a stretcher. We brought her to her side she was not actively seizing when I saw her however shortly thereafter she did have another seizure. She was given 2 mg of IV Ativan. She was then brought down to the emergency room. I discussed with the ER staff. Thank you very much, Nicolas Parsons
[2017-07-28 15:47] LABS: BASO % 0.5 % (0.0-2.0); EOS # 0.1 K/uL (0.0-0.7); EOS % 0.8 % (0.0-4.0); LYMPH % 14.4 % (20.0-40.0); MEAN CORPUSCULAR HEMOGLOBIN 31.8 pg (27.0-31.0); MEAN CORPUSCULAR HGB CONC 35.8 g/dL (33.0-37.0); MEAN PLATELET VOLUME 6.6 fL (7.2-11.7); MONO # 0.5 K/uL (0.0-0.8); MONO % 7.8 % (0.0-10.0); NEUT # 5.3 K/uL (1.8-7.0); NEUT % 76.5 % (50.0-75.0); RBC 4.09 Mil/uL (3.80-5.20); RED CELL DISTRIBUTION WIDTH 13.1 % (11.5-14.5)
[2017-07-28 15:59] LABS: ALB/GLOB RATIO 1.5 (1.0-2.1); ALT/SGPT 67 U/L (9-52); AST/SGOT 44 U/L (14-36); BLOOD UREA NITROGEN 13 mg/dL (7-17); GFR AFRICAN-AMERICAN > 60; GFR NON-AFRICAN AMERICAN > 60
[2017-07-28 16:36] VITALS: BP 114/73; PULSE 114; RESP 21; TEMP 99; O2SAT 96
[2017-07-28 17:10] LABS: HCG,QUALITATIVE URINE NEGATIVE (NEGATIVE)
[2017-07-28 17:14] LABS: SQUAMOUS EPITHIAL < 1 /hpf (0-5); URINE BACTERIA RARE (<OCC); URINE BILIRUBIN NEGATIVE (NEGATIVE); URINE CLARITY Hazy (Clear); URINE COLOR Yellow (YELLOW); URINE GLUCOSE (UA) NORMAL (Normal); URINE LEUKOCYTE ESTERASE NEG Leu/uL (Negative); URINE NITRATE NEGATIVE (NEGATIVE); URINE PROTEIN NEGATIVE (NEGATIVE); URINE UROBILINOGEN NORMAL mg/dL (0.2-1.0)
[2017-07-28 17:15] LABS: URINE BLOOD 1+ (NEGATIVE)
== END 2017-07-28 18:45 | disposition home or self-care (01) ==
LOC: C.ER 14:19
DX: G40.909 Epilepsy, unspecified, not intractable, without status epilepticus (principal)
CPT/HCPCS: 80053; 81001; 84703; 85025; 96374; 99285; J2060

== ENCOUNTER 2017-07-31 15:27 | Emergency (ER) | payer BC ==
[2017-07-31 15:27] VITALS: BMI 18.8
[2017-07-31 15:46] VITALS: O2SAT 99
--- NOTE | 2017-07-31 15:46 | C.PDOC ---
History Of Present Illness LIMITED DUE TO CLINICAL CONDITION. 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 Brought down to the ER via rapid response team s/p multiple seizures prior to arrival. Patient is reportedly compliant with medications. No signs of obvious trauma or injury. Questionable recent med change per RN. ROS UTO EXAM POST ICTAL NARD NEURO NO ACTIVE SZ CTA B/L NO W/R/R CV RRR ATRAUM REMAINDER NEG Time Seen by Provider: 07/31/17 15:44 Chief Complaint (Nursing): Seizure History Per: Patient History/Exam Limitations: clinical condition (postictal state) Recent Seizure Activity Began: Just Before Arrival Number Of Seizures: Multiple Past Medical History Reviewed: Historical Data, Nursing Documentation, Vital Signs Vital Signs: Last Vital Signs Temp 98.7 F 07/31/17 17:40 Pulse 125 H 07/31/17 17:40 Resp 18 07/31/17 17:40 BP 115/68 07/31/17 17:40 Pulse Ox 99 07/31/17 17:40 - Medical History PMH: Seizures Denies: Chronic Kidney Disease Surgical History: No Surg Hx Family History: States: No Known Family Hx - Social History Hx Tobacco Use: No Hx Alcohol Use: Yes (occasional) Hx Substance Use: No - Immunization History Hx Tetanus Toxoid Vaccination: Yes Hx Influenza Vaccination: Yes Hx Pneumococcal Vaccination: No Review Of Systems Review Of Systems: ROS cannot be obtained secondary to pt's inabilty to answer questions. Physical Exam - Physical Exam Appears: Other (Postictal, no acute respiratory distress) Skin: Normal Color, Warm, Dry Head: Atraumatic, Normacephalic, No Abrasion, No Laceration Oral Mucosa: Moist Tongue: Normal Appearing, No Bite Cardiovascular: Rhythm Regular Respiratory: Normal Breath Sounds (clear to auscultation bilaterally), No Rales , No Rhonchi, No Wheezing Gastrointestinal/Abdominal: Normal Exam, Soft, No Tenderness Extremity: Bilateral: Atraumatic, Normal Color And Temperature, Normal ROM Neurological/Psych: Other (No active seizures in the ER) ED Course And Treatment - Laboratory Results Result Diagrams: 07/31/17 16:10 07/31/17 16:10 Interpretation Of Abnormal: Phenytoin low O2 Sat by Pulse Oximetry: 99 (RA) Pulse Ox Interpretation: Normal Progress - Re-Evaluation Re-evaluation Note: 07/31/17 16:02 IMMEDIATE IMPROVEMENT, COMPLETE RESOLUTION OF POST ICTAL STATE WITHIN SEV MINUTES AFTER RECEIVING ATIVAN. PT NOW ASYMPT. ON DILANTIN 100 MG AM, 100 MG AFTERNOON, 150 MG EVENING. WAS ADVISED TO START 200 MG EVENING TONIGHT. KEPPRA DOSING UNCHANGED 07/31/17 17:31 no recur sz since prior eval. DC JAN VINSON 07/31/17 17:46 BASELINE TACHYCARDIA. PER PRIOR ER VISITS, PT IS BASELINE TACHYCARDIC. CURRENT HR C/W PRIOR RATE - Data Reviewed Data Reviewed: Lab, Old records Medical Decision Making Medical Decision Making: Time: 15:47 Initial Plan: * Labs including Dilantin level Disposition Counseled Patient/Family Regarding: Studies Performed, Diagnosis, Need For Followup - Disposition Referrals: Jose Vinson MD [Staff Provider] - Disposition: HOME/ ROUTINE Disposition Time: 17:31 Condition: IMPROVED Instructions: Seizures, Adult (DC) Forms: [facility] (Kinyarwanda), School Excuse - Clinical Impression Clinical Impression: Breakthrough seizure - Scribe Statement The provider has reviewed the documentation as recorded by the Alex Hurst Provider Attestation: All medical record entries made by the Jilibgautam were at my direction and personally dictated by me. I have reviewed the chart and agree that the record accurately reflects my personal performance of the history, physical exam, medical decision making, and the department course for this patient. I have also personally directed, reviewed, and agree with the discharge instructions and disposition.
--- NOTE | 2017-07-31 16:08 | CP.PCM.PN ---
<Cam Orozco - Last Filed: 07/31/17 16:05> Subjective - Date & Time of Evaluation Date of Evaluation: 07/31/17 Time of Evaluation: 16:00 - Subjective Subjective: RAPID RESPONSE NOTE. Rapid response called. 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 Sees Dr. Schulte. Pt found in radiology room 3 on third floor actively seizing. ROS unobtainable. Objective - Vital Signs/Intake and Output Vital Signs (last 24 hours): Temp Pulse Resp BP Pulse Ox 99.7 F H 113 H 24 137/87 99 07/31/17 15:42 07/31/17 15:42 07/31/17 15:42 07/31/17 15:42 07/31/17 15:42 - Constitutional Appears: In Acute Distress - Head Exam Head Exam: ATRAUMATIC, NORMAL INSPECTION, NORMOCEPHALIC - Neck Exam Neck Exam: Full ROM, Normal Inspection - Respiratory Exam Respiratory Exam: absent: Respiratory Distress - Cardiovascular Exam Cardiovascular Exam: +S1, +S2 - GI/Abdominal Exam GI & Abdominal Exam: Soft, Normal Bowel Sounds. absent: Tenderness - Neurological Exam Neurological Exam: Altered. absent: Normal Gait, Oriented x3 - Psychiatric Exam Additional comments: Unable to assess - Skin Skin Exam: Dry, Intact, Normal Color, Warm Assessment and Plan - Assessment and Plan (Free Text) Assessment: 21 yo female with known seizure disorder, recently switched anti seizure medications -pt tachycardic -pt was actively seizing, had 4 total seizures -given 4 mg IV ativan -pt transferred to ER for further evaluaton <Radha Urias V - Last Filed: 07/31/17 21:57> Objective - Vital Signs/Intake and Output Vital Signs (last 24 hours): Temp Pulse Resp BP Pulse Ox 98.7 F 125 H 18 115/68 99 07/31/17 17:40 07/31/17 17:40 07/31/17 17:40 07/31/17 17:40 07/31/17 17:47 - Labs Labs: 07/31/17 16:10 07/31/17 16:10 Attending/Attestation - Attestation I have personally seen and examined this patient.: Yes I have fully participated in the care of the patient.: Yes I have reviewed all pertinent clinical information, including history, physical exam and plan: Yes Notes (Text): Brief Hospitalist Note HOURLY TEAM MEMBERS: seizure Patient seen in radiology suite. Patient with known history of seizure disorder ; sees Dr. Schulte as outpatient, accompanied by her school colleagues. Patient had 4 witnessed tonic clonic seizures lasting for few seconds each. Patient received two dose of Ativan 2mg IM at the time of the rapid. Patient started on new Dilantin medication and continues keppra dose. I spoke with Dr Schulte, Dilantin was increased as of today; saw patient in the office with mother, no acute abnormalities noted during the visit, had a recent cold and on Abx, Patient did take her dilantin this morning, unclear dosage (reports 300mg?) and hasn't been eating much but had some juice for lunch. Patient oxygenating at 97 and hr: 120s in between seizures. Patient has not visible injuries nor head trauma. Patient was secured by 5-6 members during time of each seizure. I spoke with dr schulte recommended for dilantin level for today. Discussed case with Dr. Lofton, ED who was informed at time of HOURLY TEAM MEMBERS and discussed when patient brought down to the ED.
[2017-07-31 16:14] LABS: BASO % 0.2 % (0.0-2.0); EOS % 0.1 % (0.0-4.0); HEMOGLOBIN 13.9 g/dL (11.0-16.0); LYMPH # 1.6 K/uL (1.0-4.3); LYMPH % 13.6 % (20.0-40.0); MEAN CELL VOLUME 89.7 fL (81.0-99.0); MEAN CORPUSCULAR HEMOGLOBIN 31.5 pg (27.0-31.0); MEAN CORPUSCULAR HGB CONC 35.1 g/dL (33.0-37.0); MEAN PLATELET VOLUME 7.1 fL (7.2-11.7); MONO # 0.8 K/uL (0.0-0.8); MONO % 6.3 % (0.0-10.0); NEUT # 9.6 K/uL (1.8-7.0); NEUT % 79.8 % (50.0-75.0); RBC 4.41 Mil/uL (3.80-5.20); RED CELL DISTRIBUTION WIDTH 13.3 % (11.5-14.5)
[2017-07-31 16:31] LABS: CALCIUM 9.7 mg/dl (8.6-10.4); GFR AFRICAN-AMERICAN > 60; GFR NON-AFRICAN AMERICAN > 60
[2017-07-31 16:33] LABS: BLOOD UREA NITROGEN 12 mg/dL (7-17)
[2017-07-31] MEDS ORDERED: Fosphenytoin 1,000 MG in Sodium Chloride 0.9% 50 ML IV STA (16:35)
[2017-07-31 17:41] VITALS: RESP 18
[2017-07-31 17:46] VITALS: BP 115/68; PULSE 125; TEMP 98.7
[2017-07-31] MEDS ORDERED: Fosphenytoin 1,000 MG in Sodium Chloride 0.9% 50 ML IV ONE (18:00)
== END 2017-07-31 18:07 | disposition home or self-care (01) ==
LOC: C.ER 15:27
DX: G40.909 Epilepsy, unspecified, not intractable, without status epilepticus (principal)
CPT/HCPCS: 80048; 80185; 85025; 96365; 99285; Q2009

== ENCOUNTER 2017-08-04 13:57 | Emergency (ER) | payer BC ==
[2017-08-04 13:57] VITALS: BMI 18.8
--- NOTE | 2017-08-04 14:20 | C.PDOC ---
History Of Present Illness The patient presents to the ED for evaluation after having a witnessed seizure prior to arrival. 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 As per patient's roommate at bedside, patient often has an aura with waves of changing lights and shadows. Patient was placed onto a stretcher by her colleagues and witnessed to have an approximately 20- second tonic-clonic seizure. She appeared mildly confused afterwards and rapid response was called. Patient was then brought to the ED via stretcher. No tonic- clonic seizure noted upon ED arrival. Patient presents for her third evaluation within the past week. She had a similar episode on 07/28 and 07/31 as well as one episode at home around 3 days ago. Chief Complaint (Nursing): Seizure History Per: Patient History/Exam Limitations: no limitations Recent Seizure Activity Began: Just Before Arrival Number Of Seizures: One Length Of Seizures (Duration): Unknown Additional History Per: Patient Past Medical History Reviewed: Historical Data, Nursing Documentation, Vital Signs Vital Signs: Last Vital Signs Temp 98 F 08/04/17 17:21 Pulse 78 08/04/17 17:21 Resp 16 08/04/17 17:21 BP 135/86 08/04/17 17:21 Pulse Ox 100 08/04/17 22:39 - Medical History PMH: Seizures Denies: Chronic Kidney Disease Surgical History: No Surg Hx Family History: States: Unknown Family Hx - Social History Hx Tobacco Use: No Hx Alcohol Use: Yes (occasional) Hx Substance Use: No - Immunization History Hx Tetanus Toxoid Vaccination: Yes Hx Influenza Vaccination: Yes Hx Pneumococcal Vaccination: No Review Of Systems Neurological: Positive for: Seizures Physical Exam - Physical Exam Appears: Non-toxic, Other (lethargic ) Skin: Normal Color, Warm, Dry Head: Atraumatic, Normacephalic Eye(s): bilateral: Normal Inspection Oral Mucosa: Moist Neck: Supple Chest: Symmetrical, No Deformity, No Tenderness Cardiovascular: Rhythm Regular, No Murmur Respiratory: Normal Breath Sounds, No Rales, No Rhonchi, No Wheezing Extremity: Normal ROM, Capillary Refill (less than 2 seconds ) Neurological/Psych: Normal Speech, Normal Cognition ED Course And Treatment - Laboratory Results Result Diagrams: 08/04/17 14:45 08/04/17 14:45 Lab Interpretation: Normal (dilantin 17 (10-20), Prolactin levels: 31 (one hour after initial seizure) and 22 approx 20 min after 2nd witnessed seizure in ED) ECG: Interpreted By Me ECG Rhythm: Sinus Rhythm ECG Interpretation: Normal Rate From EC O2 Sat by Pulse Oximetry: 100 (on RA) Pulse Ox Interpretation: Normal Progress Note: Prior Records Reviewed: Patient has undergone three MRIs within the past two years; Results of MRI from April 2017 are significant for Right Mesial Temporal Sclerosis. Patient was initially found to be lethargic during physical exam. Patient's mother (visiting from [place]) presented to bedside at 1530. Patient then began to look around vertically. Patients heart rate increased to 140bpm and she desaturated to around 80%. Symptoms spontaneously resolved after around 15 seconds. No clonic activity noted afterwards. Dr. Lauren Walter (neurologist) made aware of case. Bloodwork, Urinalysis, EKG ordered and reviewed. Ativan IVP and IV Fluids administered. Reevaluation Time: 17:11 Reassessment Condition: Improved - Physician Consult Information Outcome Of Conversation: 1400, 1500, 1700 d/w Dr. Walter- pt's Neurologist- evliss followed and nick to d/c Critical Care Time - Critical Care Note Total Time (in mins): 90 Documented critical care: time excludes all time spent performing seperately billable procedures. Medical Decision Making Medical Decision Makin: d/w Dr. Walter, nick to d/c home with outpatient f/u. Disposition Doctor Will See Patient In The: Office Counseled Patient/Family Regarding: Studies Performed, Diagnosis - Disposition Referrals: Jose Walter MD [Staff Provider] - Disposition: HOME/ ROUTINE Disposition Time: 17:08 Condition: GOOD Additional Instructions: continue your normal meds, follow-up with Dr. Walter Instructions: Seizures, Adult (DC) Forms: [facility] (Hungarian) - Clinical Impression Clinical Impression: Generalized-onset seizures, Seizure disorder - Scribe Statement The provider has reviewed the documentation as recorded by the Scribe (Adrianna Patel) Provider Attestation: All medical record entries made by the Scribe were at my direction and personally dictated by me. I have reviewed the chart and agree that the record accurately reflects my personal performance of the history, physical exam, medical decision making, and the department course for this patient. I have also personally directed, reviewed, and agree with the discharge instructions and disposition.
[2017-08-04 14:40] LABS: HCG,QUALITATIVE URINE NEGATIVE (NEGATIVE)
[2017-08-04 14:41] LABS: SQUAMOUS EPITHIAL < 1 /hpf (0-5); URINE BILIRUBIN NEGATIVE (NEGATIVE); URINE BLOOD NEGATIVE (NEGATIVE); URINE CLARITY Clear (Clear); URINE COLOR Colorless (YELLOW); URINE GLUCOSE (UA) NORMAL (Normal); URINE LEUKOCYTE ESTERASE NEG Leu/uL (Negative); URINE NITRATE NEGATIVE (NEGATIVE); URINE PROTEIN NEGATIVE (NEGATIVE); URINE UROBILINOGEN NORMAL mg/dL (0.2-1.0)
[2017-08-04 14:49] LABS: BASO % 0.5 % (0.0-2.0); EOS % 0.1 % (0.0-4.0); HEMOGLOBIN 14.5 g/dL (11.0-16.0); LYMPH # 1.1 K/uL (1.0-4.3); LYMPH % 13.3 % (20.0-40.0); MEAN CORPUSCULAR HEMOGLOBIN 32.3 pg (27.0-31.0); MEAN CORPUSCULAR HGB CONC 36.3 g/dL (33.0-37.0); MEAN PLATELET VOLUME 6.7 fL (7.2-11.7); MONO # 0.5 K/uL (0.0-0.8); MONO % 6.1 % (0.0-10.0); NEUT # 6.6 K/uL (1.8-7.0); RBC 4.51 Mil/uL (3.80-5.20); WHITE BLOOD COUNT 8.2 K/uL (4.8-10.8)
[2017-08-04 14:53] LABS: BARBITURATES, UR NEGATIVE (NEGATIVE); BENZODIAZEPINES, UR NEGATIVE (NEGATIVE); OPIATES, UR NEGATIVE (NEGATIVE); PHENCYCLIDINE, UR NEGATIVE (NEGATIVE)
[2017-08-04] MEDS ORDERED: Sodium Chloride 0.9% 1,000 ML IV ONE (15:08)
[2017-08-04 15:26] LABS: ALB/GLOB RATIO 1.3 (1.0-2.1); ALBUMIN 4.7 g/dL (3.5-5.0); ALT/SGPT 150 U/L (9-52); AST/SGOT 138 U/L (14-36); BLOOD UREA NITROGEN 12 mg/dL (7-17); CALCIUM 10.7 mg/dl (8.6-10.4); GFR AFRICAN-AMERICAN > 60; GFR NON-AFRICAN AMERICAN > 60
[2017-08-04 15:40] LABS: PROLACTIN 31.3 ng/mL (3.0-18.9)
[2017-08-04 17:22] VITALS: BP 135/86; PULSE 78; RESP 16; TEMP 98
[2017-08-04 17:24] VITALS: O2SAT 100
--- NOTE | 2017-08-04 19:30 | PCM.RRT ---
<Cam Coronado - Last Filed: 08/05/17 05:46> I.Reason for BRAINER - A) Acute Change in Patient: (Select all that apply): Staff member or family is worried about patient ( seizure) - Neurological Status (Select all that apply): Alert, Responsive, Oriented, Verbal, Follows Commands - Constitutional Appears: Non-toxic Additional Comments: Patient with full body convulsions. - Head Additional Comments: small cut on bridge of nose - Eyes Additional Comments: eyes twitching - Respiratory Exam Respiratory Exam: Clear to Ausculation Bilateral, NORMAL BREATHING PATTERN. absent: Accessory Muscle Use, Rales, Rhonchi, Wheezes, Respiratory Distress Additional comments: during "seizure" patient clinches up and does not breath. - Cardiovascular Exam Cardiovascular Exam: Tachycardia Plan - Assessment of Findings&Treatment Plan 21 year old female with a known seizure disorder. Patient is well known to staff. She has had multiple events intern called on her over the past couple of weeks for seizures. Patient was recently worked up by Dr. Denny who increased her medication. Patient was actively convulsing upon walking into the room. Patient did not experience a long postictal state. Dr. Urias was asking the patient questions soon after resolution of convulsion and patient was responding appropriately. Patient began to clinch up, eyes twitching and becoming tachycardic, appearing that she may be having another seizure, but patient was still responding to questions. This was not consistent with known seizure disorders. No medications were given at this time. Patient was transferred to ED for further evaluation. <Radha Urias V - Last Filed: 08/07/17 21:49> Attending/Attestation - Attestation I have personally seen and examined this patient.: Yes I have fully participated in the care of the patient.: Yes I have reviewed all pertinent clinical information, including history, physical exam and plan: Yes Notes (Text): Patient with known history of seizure disorder, rapid response called for witnessed seizure. 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 Patient is able to speak to me throughout her seizure, answer appropriately, does guard in light of seizure episodes. Patient noted today for eye twitching, however also started to turn head her and +blink response no apparent bruising nor injuries. Patient reports she took her dose of Keppra and Dilantin today. Patient reports she is not sleeping well. Patient is undergoing stress as well from school. Patient did not receive Ativan at this time since she is awake, alert, oriented and able to follow commands. Patient brought down to the emergency room for further evaluation and workup. Patient's neurologist is Dr. Walter.
--- NOTE | 2017-08-07 08:49 | CARD ---
APPROVED REPORT EKG Measurement Heart [id number] VA [id number] <Conclusion> Normal sinus rhythm Possible Left atrial enlargement Borderline ECG
== END 2017-08-04 17:21 | disposition home or self-care (01) ==
LOC: C.ER 13:57
DX: G40.409 Other generalized epilepsy and epileptic syndromes, not intractable, without status epilepticus (principal)
CPT/HCPCS: 80053; 80185; 81001; 82550; 84146; 84703; 85025; 93005; 96374; 99285; G0480; J2060; J7040